=== PATIENT | female | born 1960 | race Caucasian/White ===

== ENCOUNTER 2018-03-28 12:16 | Emergency (ER) | payer OTHER, SELFPAY ==
[2018-03-28 12:25] VITALS: BP 157/77; PULSE 60; RESP 18; TEMP 36.4; O2SAT 100
[2018-03-28 13:05] LABS: Abs Immature Grans 0.01 k/cumm (0.0-0.09); Absolute Basophil Count 0.01 k/cumm (0.0-0.2); Absolute Eosinophil Count 0.07 k/cumm (0.0-0.7); Absolute Lymphocyte Count 0.79 k/cumm (1.2-3.4); Absolute Monocyte Count 0.54 k/cumm (0.11-0.7); Absolute Neutrophil Count 3.97 k/cumm (1.2-6.7); Basophils % 0.2; Eosinophils % 1.3; HCT 34.9 % (36.0-46.0); Immature Grans % 0.2; Lymphocytes % 14.7; Mean Corp. HGB Concentration 31.5 g/dL (32.0-36.0); Mean Corpuscular Hemoglobin 25.5 pg (27.0-33.0); Mean Corpuscular Volume 80.8 fL (80-95); Mean Platelet Volume 10.8 fL (8.0-11.0); Neutrophils % 73.6; Platelet Count 247 x1000/uL (130-400); RBC 4.32 m/cumm (4.00-5.20); RBC Distribution Width 14.1 % (11.7-14.6); White Blood Cell Count 5.39 k/cumm (4.4-10.8)
[2018-03-28 13:20] LABS: ALT 26 U/L (12-78); AST 29 U/L (15-37); Albumin 3.7 g/dL (3.4-5.0); Alkaline Phosphatase 101 U/L (46-116); BUN 14 mg/dL (7-18); Bilirubin, Total 0.3 mg/dL (0.2-1.0); CREATININE 0.74 mg/dL (0.55-1.02); Calcium 8.8 mg/dL (8.5-10.1); Chloride 104 mmol/L (98-107); Glucose 97 mg/dL (70-100); Sodium 141 mmol/L (136-145); Total Protein 7.3 g/dL (6.4-8.2)
--- NOTE | 2018-03-28 13:34 | ED.GENADUL_ITS ---
Disposition Clinical Impression: GI bleeding Disposition: HOME Condition: Improving Instructions: Gastrointestinal Bleeding (ED) Additional Instructions: Please take it easy over the next couple days. Please follow-up with surgery. Call on Saturday. Please follow-up with your primary care physician. Return to the emergency department immediately for any worsening or new concerning symptoms. Referrals: Angela Jo MD [Primary Care Provider] - Ted Ceballos DO [ [facility] STAFF PHYSICIAN] - Medical Decision Making - Lab Data Laboratory Tests 03/28/18 03/28/18 12:35 12:35 WBC 5.39 RBC 4.32 Hgb 11.0 L Hct 34.9 L MCV 80.8 MCH 25.5 L MCHC 31.5 L RDW 14.1 Plt Count 247 MPV 10.8 Immature Gran % 0.2 Neutrophils % 73.6 Lymphocytes % 14.7 Monocytes % 10.0 Eosinophils % 1.3 Basophils % 0.2 Absolute Neutrophils 3.97 Absolute Lymphocytes 0.79 L Absolute Monocytes 0.54 Absolute Eosinophils 0.07 Absolute Basophils 0.01 Sodium 141 Potassium 4.0 Chloride 104 Carbon Dioxide 28.0 Anion Gap 9.0 BUN 14 Creatinine 0.74 Estimated GFR/1.73 m2 >= 60.00 Glucose 97 Calcium 8.8 Magnesium Cancelled Total Bilirubin 0.3 AST 29 ALT 26 Alkaline Phosphatase 101 Troponin I Cancelled Total Protein 7.3 Albumin 3.7 Results reviewed for labs ordered during visit: Yes - Medical Decision Making 13:35 --57-year-old female with history of familial adenomatous polyposis, colon cancer, status post colectomy, gastric ulcer in the past here with rectal bleeding today. Patient notes last bowel movement had decreased blood. Patient otherwise feels well. Vital stable. No active bleeding at this time. I called and spoke with general surgery on-call Dr. Hurtado and reviewed the presentation as well as past medical history including operative report from Dr. Manley 11/01/2017. He recommended ED observation to ensure bleeding improves and the patient remained stable. Should patient not be stable, she will admit for scope. 14:30 -- Patient reassessed and remains stable. Patient had another bowel movement here in emerge department without any bleeding. I discussed treatment plan with patient and she agreed to take it easy over the next couple days, return immediately should she have any worsening or new concerning symptoms and to follow-up with surgery Saturday to schedule EGD/ colonoscopy. History of Present Illness - General Chief complaint: GI Bleed Stated complaint: PASSING BLOOD Time Seen by Provider: 03/28/18 12:25 Source: patient, RN notes reviewed Mode of arrival: ambulatory Limitations: no limitations - History of Present Illness Initial comments: 57 yo female with history of familial adenomatosis polyposis, colon polyps, colon cancer, status post colectomy except for small rectal stump, gastric ulcers in the past, presents with chief complaint of rectal bleeding. Patient notes that since just prior to lunch today she has had intermittent rectal bleeding with bowel movement. Rectal bleeding is bright red, light to moderate. She notes that the toilet water does seem to clear. She has had 3 bouts of this today. No modifiers. No associated abdominal pain. Patient otherwise feels well. - Related Data Estradiol [Estring] 1 each VG q 3 months #1 script 05/15/17 Pantoprazole Sodium 40 mg PO DAILY #30 tabcr 04/01/18 Allergies Allergy/AdvReac Type Severity Reaction Status Date / Time morphine AdvReac Intermediate BAD DREAMS Unverified 03/31/18 15:56 Review of Systems Constitutional: denies: fever Respiratory: denies: cough, shortness of breath Cardiovascular: denies: chest pain Gastrointestinal: as per HPI. denies: abdominal pain, nausea, vomiting Comment: All other systems reviewed and negative Past Medical History - Past Medical History colon cancer Surgical history: other (Colectomy) - Social History Smoking status: never smoker Alcohol use: none Drug use: none General Exam - General Limitations: no limitations General appearance: alert, in no apparent distress - Eye Eye exam: Absent: conjunctival injection - ENT ENT exam: Present: mucous membranes moist - Respiratory Respiratory exam: Present: normal lung sounds bilaterally. Absent: wheezes, rales, rhonchi - Cardiovascular Cardiovascular Exam: Present: regular rate, normal rhythm, normal heart sounds - GI/Abdominal GI/Abdominal exam: Present: soft, normal bowel sounds. Absent: distended, tenderness, guarding, rebound, rigid - Neurological Exam Neurological exam: Present: alert. Absent: altered - Psychiatric Psychiatric exam: Present: normal affect - Skin Skin exam: Present: warm, dry, intact. Absent: pallor Course Vital Signs - 24 hr 03/28/18 12:25 Temperature 36.4 C L Pulse 60 Respiratory 18 Rate Blood Pressure 157/77 Pulse Oximetry 100
[2018-03-28] MEDS: Pantoprazole 40 MG VIAL IVP (13:46)
[2018-03-28 13:49] VITALS: BP 130/68; PULSE 54; RESP 16; TEMP 36.7; O2SAT 100
[2018-03-28 14:55] VITALS: BP 143/77; PULSE 62; RESP 16; TEMP 36.3; O2SAT 99
== END 2018-03-28 16:28 | disposition home or self-care (01) ==
PROVIDERS: Emergency Provider Student in an Organized Health Care Education/Training Program; PCP Family Medicine
DX: K92.2 Gastrointestinal hemorrhage, unspecified (principal)
CPT/HCPCS: 36415; 80053; 86850; 86900; 86901; 96374; 99284; 83735; 84484; 85025

== ENCOUNTER → 2018-04-08 15:38 | Outpatient (CLI) | payer OTHER, SELFPAY ==
[2018-04-08 17:22] LABS: Vitamin B12 485 pg/mL (193-986)
[2018-04-10 11:09] LABS: Iron 96 ug/dL (50-175)
[2018-04-10 11:22] LABS: Ferritin 22 ng/mL (8-388)
== END ==
PROVIDERS: PCP Family Medicine; Visit Provider Surgery
DX: K29.50 Unspecified chronic gastritis without bleeding (principal); R53.82 Chronic fatigue, unspecified; D64.9 Anemia, unspecified
CPT/HCPCS: 36415; 82607; 82728; 83540

== ENCOUNTER 2018-04-25 08:31 | Day surgery (SDC) | payer OTHER, SELFPAY ==
[2018-04-25 09:32] VITALS: BP 137/83; PULSE 71; RESP 18; TEMP 36.6; O2SAT 99
[2018-04-25] MEDS: Lactated Ringers 1,000 ML 30 ML IV (09:59)
[2018-04-25] MEDS: Lactated Ringers 1,000 ML 900 ML IV (11:41)
--- NOTE | 2018-04-25 11:55 | BOWEL_PTH ---
PATIENT: CASTRO HUSSEIN LOC: [facility] U#:[id number] AGE/SX: 57/F ROOM: RE04/25/[address]: Ted Ceballos DO : 1960 BED: DIS: 04/25/2018 SPEC #: [id number] RECD: 04/25/18 13:12 STATUS: [facility] #: [id number] JOHN: 04/25/18 11:[address]: Ted Ceballos DEPT: Surgical Specimen RECD BY: Claudia Grayson ENTERED: 04/25/18 13:13 SP TYPE: Bowel OTHR DR: Angela Jo MD Tissues: 1 - STOMACH BIOPSY 2 - BIOPSY BOWEL 3 - BIOPSY BOWEL Procedures: SPECIAL STAIN 2 GROSS AND MICRO LEVEL 4 IMMUNOPEROXIDASE STAIN Comments: [id number]
[2018-04-25 12:38] VITALS: BP 114/72; PULSE 74; RESP 16; TEMP 35.8; O2SAT 97
[2018-04-25 13:23] VITALS: BP 150/80; PULSE 76; RESP 18; TEMP 36.3; O2SAT 96
--- NOTE | 2018-04-25 13:47 | ROE_ITS ---
DATE OF PROCEDURE: April 25, 2018 PREOPERATIVE DIAGNOSIS: 1. History of H. pylori. 2. Rectal bleeding. POSTOPERATIVE DIAGNOSIS: 1. Personal history of H. pylori. 2. Rectal mass. PROCEDURE: 1. Esophagogastroduodenoscopy with biopsies. 2. Flexible sigmoidoscopy with biopsies by hot snare and cold forceps. SURGEON: Ted Ceballos D.O. ANESTHESIA: Monitored Anesthesia Care by Brandi Srinivasan CRNA. ASA 2, Mallampati Class II. COLON PREP: MiraLAX and Bisacodyl prep. PREP QUALITY: Excellent. ESTIMATED BLOOD LOSS: Minimal. SPECIMENS: 1. Gastric antrum biopsies. 2. Rectal mass. 3. Rectal stump biopsies. INDICATIONS: This is a 57-year-old woman who has a history of familial adenomatous polyposis with ad enocarcinoma of the colon prior and a history of H. pylori presented with bright red blood per rectum two weeks ago. She denied any pain with this. She has been asymptomatic otherwise. Last colonosco py was in November with two polyps being identified. Since then she's been asymptomatic until recent ep isode of bleeding. It was recommended she undergo upper and lower endoscopy, the risks and benefits of which were discussed with her. All her questions were answered to her satisfaction. Consent was obtained to proceed. FINDINGS: In examining the upper gastrointestinal tract from the oropharynx to the third portion of the duodenum, the duodenum and esophagus appeared grossly normal. In the stomach there was some blee ding points that were not actively bleeding, but they had, and some contact friability; multiple biop sies were taken of this and submitted for pathology. In performing the flexible sigmoidoscopy of the rectal stump and anastomosis of the small bowel, a re ctal mass was found, approximately two centimeters in greatest diameter and removed by hot snare biop sy. In examining the rectal stump I did perform multiple cold biopsies, as there appeared to be some abnormal cells in the rectal stump. PROCEDURE: The patient was brought to the preanesthesia staging area, identification confirmed, cons ent signed. She was then brought to the procedure room and positioned left lateral decubitus. Monit oring for telemetry, end-tidal CO2, O2 saturation and blood pressure were applied. An appropriate ti me-out was taken in reviewing the patient's identification, allergies to medications, and procedures. A bite block was placed and sedation was administered by the RICHARD. Once adequate sedation was reached, I advanced an Olympus variable-stiffness endoscope from the oroph arynx to the third portion of the duodenum without difficulty. The scope was then withdrawn in circu mferential manner from the duodenum back to the oropharynx. In so doing, the duodenum appeared gross ly normal, as did the gastric antrum. There were some inflammatory changes in the body of the stomac h, which were biopsied. On retroflection of the scope in the stomach, the lesser and greater curvatu res appeared grossly normal, other than the aforementioned inflammatory changes. The fundus appeared grossly normal. There was no evidence of a hiatal hernia. I withdrew the scope to the GE junction, which I measured at 36 cm. The Z-line was at 36 cm and regular. I withdrew the scope through the r emainder of the esophagus, all of which appeared grossly normal. The scope was then withdrawn, termi nating the procedure. The patient was repositioned for flexible sigmoidoscopy. Sedation was confirmed. I advanced an Olym pus variable-stiffness flexible sigmoidoscope through the anus to the rectal junction to the anastomo sis of the rectum to the small bowel, which was about 20 cm. This appeared grossly normal, but when withdrawing the scope there was noted first to be a small polyp but turned out to be a rather large m ass that was pedunculated. I was able to remove this with a hot snare. Below this was noticed a sma ll opening, which I advanced the scope through and this was a remnant of the rectal stump. Apparentl y the patient had an end-to-side anastomosis and part of the rectal stump was upstream from the anast omosis had strictured. There were some abnormal cells in the stump and biopsies were taken of these and some cells around the orifice to the rectal stump. I then withdrew the scope, terminating the pr ocedure. PLAN: Will get a metastatic workup; I suspect the polyp is malignant and was definitely the source o f bleeding, and will start referrals to Med Oncology and Colorectal Surgery.
== END 2018-04-25 13:51 | disposition home or self-care (01) ==
LOC: SUR 04-26 10:19
PROVIDERS: PCP Family Medicine; Visit Provider Surgery
DX: C20 Malignant neoplasm of rectum (principal); D12.8 Benign neoplasm of rectum; K62.5 Hemorrhage of anus and rectum; K31.9 Disease of stomach and duodenum, unspecified; T45.4X5A Adverse effect of iron and its compounds, initial encounter; Z87.19 Personal history of other diseases of the digestive system; Z85.038 Personal history of other malignant neoplasm of large intestine; Z90.49 Acquired absence of other specified parts of digestive tract; Z98.0 Intestinal bypass and anastomosis status
CPT/HCPCS: 43239; 45380; 45385; 88305; 88313; 88361

== ENCOUNTER → 2018-04-30 01:23 | Outpatient (CLI) | payer OTHER, SELFPAY ==
--- NOTE | 2018-04-30 10:10 | DI.CT_ITS ---
SYMPTOM/DIAGNOSIS: RECTAL MASS WITH H/O COLON CA CHEST, ABDOMEN AND PELVIC CT: Comparison is made with 08/23/16. ABDOMEN AND PELVIS: There is again seen a hypodense mass in the dome of the right lobe of the liver. It measures 1.4 cm. in transverse diameter. There does appear to be some peripheral enhancement of the mass superiorly. This is unchanged in size compared to the CT scan from 08/23/16. This was also present and similar in size on the CT scan from 10/04/11. No new hepatic masses are identified. The portal and superior mesenteric veins are patent. The gallbladder is negative by CT criteria. There is no biliary ductal dilatation. The pancreas and peripancreatic soft tissues are unremarkable. The spleen is unremarkable. The adrenal glands are unremarkable. The kidneys show normal and symmetric enhancement. No evidence of a solid renal mass or obstruction. The urinary bladder is intact. The reproductive organs appear grossly unremarkable. The abdominal aorta is of normal caliber. No aneurysmal dilatation is present. There is a trace amount of fluid in the cul-de-sac. No pneumoperitoneum is present. The majority of the colon appears to have been resected. There is asymmetric soft tissue thickening seen in the region of the rectum just inferior to the suture material. This may be slightly more prominent compared to the examination from 2016. There is again seen a soft tissue mass in the rectum on the right measuring approximately 4 cm. by 2.7 cm. This has a similar appearance compare to the prior examination. No significant abdominal or pelvic adenopathy is present. No suspicious lytic or sclerotic lesions are identified. IMPRESSION: 1. Status post near total colectomy. 2. Soft tissue thickening seen in the region of the rectum near the inferior most anastomotic. This may be post surgical. It appears slightly more prominent compared to the prior examination. Please correlate clinically. 3. Stable 4 cm. soft tissue mass in the right pelvis. 4. Stable 1.4 cm. hepatic lesion, likely reflecting a hemangioma. This has been present on CT scans dating back to 2006. 5. No new hepatic mass. No adrenal mass is identified. CHEST: There are bilateral thyroid nodules, the largest is in the right lobe and measures 0.9 cm. in diameter. Follow up as clinically appropriate. No significant axillary, mediastinal or hilar adenopathy is present. The thoracic aorta is of normal caliber. Heart size is at the upper limits of normal. No significant pericardial effusion is seen. No pleural effusion or pneumothorax is identified. The tracheobronchial tree is unremarkable. There are a few tiny subpleural areas of nodularity present. This may represent scarring. There is a small reticular nodular infiltrate in the left lower lobe. No consolidating infiltrates are present. No definite non calcified pulmonary nodules are appreciated. IMPRESSION: 1. No definite evidence of thoracic metastatic disease. 2. Reticular nodular infiltrate in the left lower lobe. This finding is nonspecific. This may represent an inflammatory or infectious process. Follow up is recommended. 3. Pleural scarring in the lungs
[2018-04-30] MEDS: Omnipaque 350 MG/ML 100 ML BTL IJ (14:26)
== END ==
PROVIDERS: PCP Family Medicine; Visit Provider Surgery
DX: K62.89 Other specified diseases of anus and rectum (principal); R16.0 Hepatomegaly, not elsewhere classified; Z85.038 Personal history of other malignant neoplasm of large intestine; Z90.49 Acquired absence of other specified parts of digestive tract; E04.1 Nontoxic single thyroid nodule; J98.4 Other disorders of lung
CPT/HCPCS: 74177; 71260; J3490

== ENCOUNTER 2018-09-05 16:01 | Outpatient (REF) | payer OTHER, SELFPAY ==
--- NOTE | 2018-09-05 15:45 | PAPFT_PTH ---
PATIENT: CASTRO HUSSEIN LOC: [facility] U#:[id number] AGE/SX: 58/F ROOM: RE09/05/[address]: MOSHE [place] : 1960 BED: DIS: 09/05/2018 SPEC #: [id number] RECD: 09/05/18 17:47 STATUS: RYAN [facility] #: [id number] JOHN: 09/05/18 15:[address]: Vivian Barajas DEPT: [facility] Cytology RECD BY: Claudia Grayson ENTERED: 09/05/18 17:48 SP TYPE: PAPFT JASPREET DR: Angela Jo MD Tissues: 1 - CX/ENDOCX FOR PAP SMEARS Procedures: PAP THIN PREP/[facility] Screening HPV DNA PROBE Comments: [id number]
== END 2018-09-05 16:21 ==
LOC: LBN 16:01
PROVIDERS: PCP Family Medicine; Visit Provider Nurse Practitioner Family
DX: Z12.4 Encounter for screening for malignant neoplasm of cervix (principal); Z11.51 Encounter for screening for human papillomavirus (HPV)
CPT/HCPCS: 88142; 87624

== ENCOUNTER 2018-09-16 06:36 | Outpatient (CLI) | payer OTHER, SELFPAY ==
[2018-09-16 08:39] LABS: Glucose 97 mg/dL (70-100)
[2018-09-16 08:44] LABS: Iron 55 ug/dL (50-175)
[2018-09-16 08:57] LABS: Cholesterol 177 mg/dL (50-200); Ferritin 37 ng/mL (8-388); HDL Cholesterol 98 mg/dL (40-60); LDL CHOLESTEROL 74 mg/dL (<100); Triglyceride 47 mg/dL (30-150)
== END 2018-09-16 06:56 ==
PROVIDERS: PCP Family Medicine; Visit Provider Nurse Practitioner Family
DX: D64.9 Anemia, unspecified (principal); Z13.220 Encounter for screening for lipoid disorders; Z13.1 Encounter for screening for diabetes mellitus
CPT/HCPCS: 36415; 80061; 82947; 83721; 82728; 83540

== ENCOUNTER 2018-10-23 00:58 | Outpatient (CLI) | payer OTHER, SELFPAY ==
--- NOTE | 2018-10-23 08:45 | DI.MAMMO_ITS ---
SYMPTOMS/DIAGNOSIS: SCREENING, Z12.31 BILATERAL SCREENING MAMMOGRAM: Mammograms were interpreted according to the usual protocol including computer analysis with CAD system, tomosynthesis and C view imaging. Comparison is made with 2013 through 2017. The breasts are composed of scattered fibroglandular densities, breast density category B. No suspicious masses or suspicious microcalcifications are seen. There has been no significant change. IMPRESSION: Category 1, negative mammogram. Yearly screening mammography is recommended. [facility] ASSESSMENT OF FINDINGS: Negative. Category 1. Patient will receive a letter notifying them of these results. BI-RADS category B. There are scattered areas of fibroglandular density.
== END 2018-10-23 01:18 ==
PROVIDERS: PCP Family Medicine; Visit Provider Nurse Practitioner Family
DX: Z12.31 Encounter for screening mammogram for malignant neoplasm of breast (principal)
CPT/HCPCS: 77063; 77067

== ENCOUNTER 2018-12-31 09:38 | Outpatient (CLI) | payer OTHER, SELFPAY ==
[2018-12-31 10:13] LABS: HCT 39.7 % (36.0-46.0); HGB 13.2 g/dL (12.0-15.5); Mean Corp. HGB Concentration 33.2 g/dL (32.0-36.0); Mean Corpuscular Hemoglobin 27.8 pg (27.0-33.0); Mean Corpuscular Volume 83.8 fL (80-95); Mean Platelet Volume 10.5 fL (8.0-11.0); Platelet Count 258 x1000/uL (130-400); RBC 4.74 m/cumm (4.00-5.20); RBC Distribution Width 13.5 % (11.7-14.6); White Blood Cell Count 5.19 k/cumm (4.4-10.8)
[2018-12-31 11:14] LABS: BUN 16 mg/dL (7-18); CREATININE 0.74 mg/dL (0.55-1.02); Calcium 9.4 mg/dL (8.5-10.1); Chloride 103 mmol/L (98-107); Ferritin 36 ng/mL (8-388); Glucose 92 mg/dL (70-100); Potassium 3.6 mmol/L (3.5-5.1); Sodium 143 mmol/L (136-145); TSH (W/Ref FT4) 0.82 uIU/mL (0.358-3.74); Vitamin B12 621 pg/mL (193-986)
[2018-12-31 15:10] LABS: Iron 82 ug/dL (50-175); Total Iron Binding Capacity 409 ug/dL (250-450); Transferrin Sat 20 % (15-50)
== END 2018-12-31 09:58 ==
PROVIDERS: PCP Family Medicine; Visit Provider Family Medicine
DX: Z00.00 Encounter for general adult medical examination without abnormal findings
CPT/HCPCS: 36415; 80048; 85027; 82607; 82728; 83540; 83550; 84443

== ENCOUNTER 2019-02-05 10:09 | Outpatient (CLI) | payer OTHER, SELFPAY ==
--- NOTE | 2019-02-05 08:30 | DI.RAD_ITS ---
SYMPTOM/DIAGNOSIS: RETICULAR NODULAR INFILTRATE IN LEFT LOWER LOBE/ F/U ABNL CHEST X-RAY R93.89 PA AND LATERAL CHEST: The heart is normal in size. The lungs are clear. The mediastinal structures and pleura appear intact. CONCLUSION: Normal chest.
== END 2019-02-05 10:29 ==
PROVIDERS: PCP Family Medicine; Visit Provider Family Medicine
DX: R91.8 Other nonspecific abnormal finding of lung field (principal)
CPT/HCPCS: 71046

== ENCOUNTER 2019-05-08 07:21 | Emergency (ER) | payer OTHER, SELFPAY ==
[2019-05-08 07:26] VITALS: BP 152/80; PULSE 68; RESP 18; O2SAT 78
[2019-05-08] MEDS: Ketorolac 30 MG/ML VIAL IM (07:36)
--- NOTE | 2019-05-08 07:55 | ED.GENADUL_ITS ---
Discharge Plan Disposition Patient Disposition: HOME Condition: Good Discharge Details Chief Complaint: Orthopedic Clinical Impression: Left ulnar fracture, Closed left radial fracture, Fracture of metacarpal Primary Care Provider: Angela Jo ED Provider: Andres Rayo Home Meds and New Rx's Prescriptions: No Action Estring 2 mg (7.5 mcg /24 hour) ring 1 vag ring VG q 3 months Qty: 1 RF: 4 hydrochlorothiazide 25 mg tablet 25 mg PO DAILY Qty: 90 RF: 3 ferrous sulfate 325 mg (65 mg iron) tablet 325 mg PO DAILY RF: 0 Discharge Instructions Instructions: Wrist Fracture in Adults (ED) Additional Instructions: You have a fracture in your wrist. Please keep the splint on at all times. Please take Tylenol and Motrin as needed for pain. Maximum dose is 1000 mg of Tylenol every 6 hours and 800 mg of ibuprofen every 6 hours. Please use ice often. Orthopedics will contact you for follow-up day. If you notice any worsening of your symptoms, or any new symptoms such as vomiting, diarrhea, fever, chills, shortness of breath, chest pain, numbness, weakness, or fainting , please return immediately to the emergency department for reevaluation. Please follow up with your primary care provider as soon as possible for reassessment and reevaluation. As always, it was a pleasure participating in your medical care today. Referrals: Angela Jo MD [Primary Care Provider] - Discharge Data Discharge Date/Time-TO BE ENTERED AT DEPARTURE: 05/08/19 08:25 Medical Decision Making <Jose L Thacker DO - Last Filed: 05/08/19 20:14> This is a 58-year-old female who presents today for evaluation of left wrist pain in her nondominant wrist. Less than an hour ago she fell, hyperflexing her wrist. Pain is located at the distal radius and ulna as well as diffuse pain throughout the proximal metacarpals. Sensation, two-point discrimination, appears intact, capillary refill and vascular exam is normal. Heel Painter strength and movement of all fingers and thumb is normal and shows no evidence of significant deficit. Movement is slightly limited secondary to pain. No evidence of notable displacement or deformity. Differential is highest for nondisplaced fracture of the radius, ulna, or proximal carpals/metacarpals. Patient will be given Toradol for pain, we will order a universal wrist splint at this time, we will get x-rays. Case will be signed out to my colleague Dr. Andres Mendoza for final results of imaging. We will schedule orthopedic follow-up. Also of note the patient demonstrate no evidence of trauma to the remainder of her body, she denies hitting her head or having any loss of consciousness. No pain in any of the other extremities or components of the extremities. FINDINGS: Bones/joints: There is an impacted transverse fracture of the distal radial metaphysis. There is an associated longitudinal fracture line extending to the radiocarpal joint. There is a fracture at the base of the ulnar styloid. There is an oblique fracture involving the proximal fourth metacarpal. No dislocation. Soft tissues: There is superficial soft tissue swelling. There is a positive pronator quadratus sign. IMPRESSION: Distal radial, ulnar styloid, and proximal fourth metacarpal fractures. Dictated and Authenticated by: Dalton Cerna MD. <Andres Rayo MD - Last Filed: 05/08/19 08:07> xray confirms fractur ewithout displacement. Placed in universal wrist splint with intact csmt's, will d/c home and f/u with ortho HPI <Jose L Thacker DO - Last Filed: 05/08/19 20:14> General Date/Time Provider Initiated Documentation: 05/08/19 07:22 . HPI Narrative: This is a pleasant 58-year-old female who presents today for evaluation of left wrist pain. She is right-hand dominant. Less than an hour ago she was walking when she fell on some stairs, and hyperflexed her left wrist. She developed immediate pain came to the ER for further evaluation. Pain is present in the distal forearm. Worse with movement. She denies any numbness tingling or weakness. She has not taken any medications for pain. She denies hitting her head, loss of consciousness, or any other trauma. She has no other complaints at this time. Past medical history is positive for chronic gastritis, H. pylori, colon cancer. Related Data Home Medications Medication Instructions Recorded Confirmed estradiol 1 vag ring VG q 3 months #1 each 09/05/18 05/08/19 hydrochlorothiazide 25 mg tablet 25 mg PO DAILY #90 tab 02/04/19 05/08/19 ferrous sulfate 325 mg PO DAILY 05/08/19 05/08/19 Previous Rx's Medication Instructions Recorded estradiol 1 vag ring VG q 3 months #1 each 09/05/18 hydrochlorothiazide 25 mg tablet 25 mg PO DAILY #90 tab 02/04/19 Allergies Allergy/AdvReac Type Severity Reaction Status Date / Time morphine AdvReac Intermediate BAD DREAMS Verified 05/08/19 07:37 General Stated Complaint: Orthopedic GIULIANA: 3 Review of Systems <Jos eL Thacker DO - Last Filed: 05/08/19 20:14> Review of Systems ROS Unobtainable: All systems reviewed & are unremarkable except as noted in HPI and below PFSH <Jose L Thacker DO - Last Filed: 05/08/19 20:14> Medical History (Updated 01/30/19 @ 09:33 by Daniel Real) Chronic gastritis (Acute 11/01/17) Essential (primary) hypertension (Acute) FAP (familial adenomatous polyposis) (Chronic) History of Helicobacter pylori infection (Chronic) 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 Rectal adenocarcinoma (Acute 04/25/18) Dr Ceballos Tubular adenoma (Acute) 11/23/15-DR. DALE 12/12/16-DR. DALE 11/01/16, tubular adenoma of rectal stump and anal verge, Dr Ted Ceballos tubular adenoma of rectal stump tubular adenoma anal verge Surgical History (Updated 01/30/19 @ 09:33 by Daniel Real) Abnormal colonoscopy (Inactive 04/25/18) Dr Ceballos, flex sigmoidoscopy Anoscopy (07/09/17) Colectomy (~1993) LARGE BOWEL reanastomosis colonoscopy (12/12/16) Colonoscopy - MAC (11/01/17) EGD - MAC (11/01/17) EGD - MAC (04/25/18) EXCISION SEBACEOUS CYST (04/11/15) LEFT POSTAURICULAR REGION History of esophagogastroduodenoscopy (EGD) (Chronic 04/25/18) Dr Ceballos Sigmoidoscopy (04/25/18) surveillance of rectal stump (12/12/16) Social History (Updated 12/31/18 @ 11:51 by Kerwin Morrison) Smoking/Tobacco Use Status: Never Alcohol Intake: current Alcohol Intake frequency: holidays/special occasions only Alcohol type: wine Drug use: Never Substance use type: does not use Household members: spouse Housing: house Communication Needs: None Do you need help understanding health information?: Rarely Pets and animals: Yes Pets and animals: cat(s) Do you think of yourself as: straight/heterosexual Current gender identity: female What is your relationship status?: How often do you talk on the phone with friends or family?: decline to answer How often do you get together with friends or relatives?: twice per week How often do you attend jewish or scientologist services?: 1-3 times per year Do you belong to any clubs or organized social groups?: decline to answer Panel score (0-1 are the most socially isolated patients): 1 What type of physical activity do you participate in: walking Duration: 15-30 minutes/day Frequency: 5-6 times per week Destini/Roman Catholic: Buddhism Special destini needs: No Seatbelt use: always Helmet use: No Drive intox or ride w/intox straddle truck driver: No Do you feel safe in your relationship?: Yes History History 2 Para 2 Hx # Term Pregnancies Multiple births Hx # Pregnancies Ectopic pregnancies AB induced Hx Number of Living Children AB spontaneous Exam <Jose L Thacker DO - Last Filed: 05/08/19 20:14> Narrative Exam Narrative: 1.Const: Well-nourished, Well-developed, appearing stated age 2.Eyes: PERRL, no conjunctival injection, and symmetrical lids. 3.ENT: Atraumatic external nose and ears. Moist MM. Neck: Symmetric, trachea midline, No thyromegaly. 4.CVS: +S1/S2, No murmurs or gallops. Peripheral pulses 2+ and equal in all extremities. Brisk capillary refill in all extremities. 5.RESP: Unlabored respiratory effort. Clear to auscultation bilaterally. No wheezes rales or rhonchi 6.GI: Soft, Nontender/Nondistended, No hepatosplenomegaly. No guarding or rebound. 7.MSK: Normocephalic, Extremities w/o deformity.No cyanosis or clubbing, Left wrist: Left wrist demonstrates notable tenderness at the distal aspect of the radius and ulna. There is also diffuse tenderness over the proximal metacarpals. Pain is made worse with flexion and extension, as well as varus and valgus stressing. Patient demonstrates good information broker strength, normal movement of the fingers. Symmetrically palpable radial and ulnar pulses. Capillary refill less than 2 seconds to all digits. Intact sensation to light touch of the radial, median and ulnar nerves demonstrated by testing in the dorsal web space of the thumb, the distal palmar aspect of the index finger, and the lateral surface of the fifth finger. 2 point discrimination intact to 5mm (up to 6mm can be normal in digits 3-5) of discrimination in the affected digits. Intact motor function of the radial, median and ulnar nerves demonstrated by strength of extension of the isolated distal joint of the index finger, hand information broker, and spreading of the 2nd through 5th digits. Intact recurrent median nerve as demonstrated by ability to move thumb fully through opposition, abduction and flexion. Minimal snuffbox tenderness. 8.Skin: Warm, Dry. No rashes or lesions. 9.Neuro: home health care coordinator II-XII grossly intact. Sensation grossly intact, no focal neurologic deficits. 10.Psych: (AAO) x3. Appropriate mood and affect Course <Jose L Thacker DO - Last Filed: 05/08/19 20:14> Vital Signs Vital signs: Vital Signs Pulse 68 05/08/19 07:26 Respiratory Rate 18 05/08/19 07:26 Blood Pressure 152/80 H 05/08/19 07:26 Pulse Oximetry 78 L 05/08/19 07:26 Temperature Source Temporal Artery Scan 05/08/19 07:26 Pulse 68 05/08/19 07:26 Respiratory Rate 18 05/08/19 07:26 Blood Pressure 152/80 H 05/08/19 07:26 Blood Pressure Position Supine 05/08/19 07:26 Pulse Oximetry 78 L 05/08/19 07:26 Oxygen Delivery Method Room Air 05/08/19 07:26 Oxygen Flow Rate 0 05/08/19 07:26 Pain Level 8 05/08/19 07:26 Sign Out <Jose L Thacker DO - Last Filed: 05/08/19 20:14> Sign Out Data: Sign Out Comment: Female fell on hyperflexed left nondominant wrist, concern for distal forearm fracture. Pending x-ray evaluation and final disposition. Last updated by Jose L Thacker DO at 05/08/19 07:57
--- NOTE | 2019-05-08 07:57 | DI.RAD_ITS ---
SYMPTOM/DIAGNOSIS: FALL, DISTAL FOREARM PAIN R/O FX LEFT WRIST: There is a fracture extending transversely through the distal radial metaphysis. There is some impaction as well as comminution with extension to the articular surface. The ulnar styloid is fractured but not significantly displaced. The carpal bones are unremarkable. There is also an oblique fracture extending through the base of the 4th metacarpal. IMPRESSION: Comminuted intra articular fracture of the distal radius. Ulnar styloid fracture. Fracture of the base of the 4th metacarpal.
--- NOTE | 2019-05-08 08:47 | DI.VRAD_ITS ---
EXAM: XR Left Wrist EXAM DATE/TIME: 05/08/2019 7:28 AM CLINICAL HISTORY: 58 years old, female; Injury or trauma; Initial encounter; Sprain or strain; Wrist; Left; Patient HX: S/P fall, distal forarm pain, R/O FX. TECHNIQUE: Imaging protocol: XR Left wrist. Views: 3 or more views. COMPARISON: No relevant prior studies available. FINDINGS: Bones/joints: There is an impacted transverse fracture of the distal radial metaphysis. There is an associated longitudinal fracture line extending to the radiocarpal joint. There is a fracture at the base of the ulnar styloid. There is an oblique fracture involving the proximal fourth metacarpal. No dislocation. Soft tissues: There is superficial soft tissue swelling. There is a positive pronator quadratus sign. IMPRESSION: Distal radial, ulnar styloid, and proximal fourth metacarpal fractures. Dictated and Authenticated by: Dalton Cerna MD. Ordering:ALISIA Domingo MD
== END 2019-05-08 08:25 | disposition home or self-care (01) ==
PROVIDERS: Emergency Provider Emergency Medicine; PCP Family Medicine
DX: S52.615A Nondisplaced fracture of left ulna styloid process, initial encounter for closed fracture (principal); S52.502A Unspecified fracture of the lower end of left radius, initial encounter for closed fracture; S62.345A Nondisplaced fracture of base of fourth metacarpal bone, left hand, initial encounter for closed fracture; W10.8XXA Fall (on) (from) other stairs and steps, initial encounter; I10 Essential (primary) hypertension
CPT/HCPCS: 25600; 26600; 96372; 73110; J1885; L3908

== ENCOUNTER 2019-05-19 12:47 | Outpatient (CLI) | payer OTHER, SELFPAY ==
--- NOTE | 2019-05-19 11:00 | DI.RAD_ITS ---
EXAM: XR WRIST LT LIMITED INDICATION: FRACTURE. COMPARISON: XR WRIST LT COMPLETE from 05/08/2019 TECHNIQUE: 2D digital imaging was performed. FINDINGS: When compared with the previous examination, there has been no interval change in the alignment of th e fractures involving the distal radius and ulna. The fracture of the proximal metaphysis of the 4th metacarpal is stable.
== END 2019-05-19 13:07 ==
PROVIDERS: PCP Family Medicine; Visit Provider Student in an Organized Health Care Education/Training Program
DX: S52.512D Displaced fracture of left radial styloid process, subsequent encounter for closed fracture with routine healing; S52.612D Displaced fracture of left ulna styloid process, subsequent encounter for closed fracture with routine healing; S62.345D Nondisplaced fracture of base of fourth metacarpal bone, left hand, subsequent encounter for fracture with routine healing
CPT/HCPCS: 73100

== ENCOUNTER 2019-06-01 08:00 | Day surgery (SDC) | payer OTHER, SELFPAY ==
--- NOTE | 2019-06-01 06:47 | W.COLOREPORT ---
Date of service: 06/01/19 Time of Service: 09:34 Colonoscopy Report Date of procedure: 06/01/19 Pre-op diagnosis general: Hx of FAP, need for rectal stump surveillance, hx of malignant rectal polyp Post-op diagnosis procedure note: other (Polypoid mucosa with ulceration, Friable tissue) Procedure: Flexible sigmoidoscopy with biopsies Surgeon: Marlene Herman Anesthesia proc note operative: other (General/ ASA 2/diane Contreras, RICHARD) Estimated blood loss (mL): 5 Pathology: other (Rectal stump biopsies) Complications: None Disposition: other (General /ASA /) Indications: Jillian is a pleasant 59 year old with a history of FAP and Cancer, S/P Total Colectomy with ileostomy. She requires surveillance of her rectal stump. Risks, benefits and complications have been reviewed. Complications include but are not limited to bleeding, pain, perforation, missed small lesion/polyp, sore throat, aspiration and adverse reaction to the medications. Questions were entertained and answered to their satisfaction and they wished to proceed. No guarantees were given or implied. Findings: 1. Rectal pouch- no polyps or polypoid tissue noted 2. Rectal stump with carpet like polyp circumferentialy Procedure Description: After informed consent was obtained the patient was taken to the procedure room and placed in a left decubitous position. Monitors were applied and a time out was done. The patients name, date of , procedure, allergies to medications and metal in their body was reviewed. The patient was then sedated. Once sedated and comfortable a rectal exam was done. External exam was normal. Internal exam revealed a normal sphincter tone and no palpable masses. The scope was then introduced and retro-flexed. No internal hemorrhoids were identified. There was a carpet like polyp almost circumferentially as well as 2 areas with ulceration. The 2 areas of ulceration were biopsied. Other biopsies were done circumferentially. The tissue was also very friable circumferentially as well. The scope was advanced into the small bowel which was normal. The scope was then retracted and advanced into the pouch. There was some stool within the pouch and this was cleared with irrigation. The pouch was carefully inspected. No polyps or ulcerations were identified. The scope was removed and the patient was woken up and taken back to Same day surgery in stable condition. The patient tolerated the procedure well and there were no immediate complications. Follow up: follow up will depend on results of the biopsies taken.
--- NOTE | 2019-06-01 06:50 | W.PM.DSUDISC ---
Discharge Plan Disposition Patient Disposition: HOME Condition: Good Discharge Details Reason For Visit: Flexible sigmoidoscopy Attending Provider: Marlene Herman Primary Care Provider: David Isabel Home Meds and New Rx's Prescriptions: Continued Estring 2 mg (7.5 mcg /24 hour) ring 1 vag ring VG q 3 months Qty: 1 RF: 4 hydrochlorothiazide 25 mg tablet 25 mg PO DAILY Qty: 90 RF: 3 ferrous sulfate 325 mg (65 mg iron) tablet 325 mg PO DAILY RF: 0 Sean-Citrate 250-100 mg-unit Tablet 600 tab PO RF: 0 Vit C(ascorb.calcium)(mv-mins) 1,000 mg Powder Effervescent In Packet PO RF: 0 vit D3-folic [id number] 2,000-800-0.32 unit-mcg-mg Tablet 1 tab PO DAILY RF: 0 Discharge Instructions Instructions: Flexible Sigmoidoscopy (DC) Additional Instructions: Findings: ulcerations and polypoid tissue around the rectal stump Rectal pouch normal Follow up: ? depends on final pathology Please call if you develop: fevers >101.5 Nausea or Vomiting Abdominal pain that is not transient DAY SURGERY UNIT POST ENDOSCOPY INSTRUCTIONS 1. Because there will be medication in your system for the next 24 hours, you may feel a little sleepy. Your coordination will be affected. Therefore: a. Do not drive or operate dangerous equipment for 24 hours. b. Do not drink alcohol beverages for 24 hours (not even beer). c. Plan to go home and rest for the day. 2. Generally there are no restrictions on your activity after a day or so has gone by, but you may feel a bit fatigued for a few days. 3 After you arrive home you may have a light meal and return to a normal diet as you can tolerate it without feeling sick to your stomach. 4. After surgery, you may feel pain or discomfort. This should be only transient, but if it persists please contact your doctor. 5. If there are any questions regarding the findings of your procedure, please feel free to contact your doctor. 6. If you are unable to contact your doctor with a problem, contact the hospital at [phone]. 7. Continue all your regular medications unless directed otherwise. I understand the above instructions and have no questions. Signature of Patient or Responsible Adult Escort Date/Time Name of Responsible Adult Escort Signature of Nurse Date/Time Activity:: Activity as Tolerated Diet:: As Tolerated Discharge Orders Discharge Orders: Discharge Order (Routine); Ordered 06/01/19 Ordered By: Marlene Herman DS: Diagnosis Discharge Diagnosis (1) FAP (familial adenomatous polyposis): Status: Chronic (2) Sigmoidoscopy: Status: None
[2019-06-01 08:21] VITALS: BP 145/86; PULSE 63; RESP 16; TEMP 35.9; O2SAT 99
[2019-06-01 08:30] VITALS: BP 145/86; PULSE 63; RESP 16; TEMP 35.9; O2SAT 99
[2019-06-01] MEDS: Lactated Ringers 1,000 ML 80 ML IV (08:45)
--- NOTE | 2019-06-01 09:16 | BOWEL_PTH ---
PATIENT: CASTRO HUSSEIN LOC: [facility] U#:[id number] AGE/SX: 59/F ROOM: RE06/01/[address]: Marlene Herman MD : 1960 BED: DIS: 06/01/2019 SPEC #: [id number] RECD: 06/01/19 12:42 STATUS: RYAN REQ #: [id number] JOHN: 06/01/19 09:[address]: Marlene Herman DEPT: Surgical Specimen RECD BY: lCaudia Grayson ENTERED: 06/01/19 12:43 SP TYPE: Bowel OTHR DR: David Isabel MD Tissues: 1 - BIOPSY BOWEL Procedures: GROSS AND MICRO LEVEL 4 Comments: [id number]
[2019-06-01 09:54] VITALS: BP 132/84; PULSE 68; RESP 18; TEMP 36.8; O2SAT 94
== END 2019-06-01 11:43 | disposition home or self-care (01) ==
LOC: SUR 08:01
PROVIDERS: PCP Family Medicine; Visit Provider Surgery
PROC: 0DJD8ZZ Inspection of Lower Intestinal Tract, Via Natural or Artificial Opening Endoscopic (ICD-10-PCS; CPT 45330; principal; 2019-06-01 09:15)
DX: Z12.12 Encounter for screening for malignant neoplasm of rectum (principal); Z83.71 Family history of colonic polyps; Z85.048 Personal history of other malignant neoplasm of rectum, rectosigmoid junction, and anus; D12.8 Benign neoplasm of rectum; K62.6 Ulcer of anus and rectum; Z90.49 Acquired absence of other specified parts of digestive tract; Z93.2 Ileostomy status; I10 Essential (primary) hypertension
CPT/HCPCS: 45331; 88305

== ENCOUNTER 2019-06-09 07:12 | Outpatient (CLI) | payer OTHER, SELFPAY ==
--- NOTE | 2019-06-09 10:51 | DI.RAD_ITS ---
EXAM: XR WRIST LT LIMITED CLINICAL HISTORY: F/U FRACTURE TECHNIQUE: COMPARISON: XR WRIST LT LIMITED from 05/19/2019 FINDINGS: Two views were obtained and show previous disease described fractures of radius ulnar styloid and 4th metacarpal base with no change in alignment in comparison with previous examination of April h. IMPRESSION:
== END 2019-06-09 07:32 ==
PROVIDERS: PCP Family Medicine; Visit Provider Student in an Organized Health Care Education/Training Program
DX: S52.512D Displaced fracture of left radial styloid process, subsequent encounter for closed fracture with routine healing (principal); S52.612D Displaced fracture of left ulna styloid process, subsequent encounter for closed fracture with routine healing; S62.345D Nondisplaced fracture of base of fourth metacarpal bone, left hand, subsequent encounter for fracture with routine healing
CPT/HCPCS: 73100

== ENCOUNTER 2019-07-07 13:25 | Outpatient (CLI) | payer OTHER, SELFPAY ==
--- NOTE | 2019-07-07 13:16 | DI.RAD_ITS ---
EXAM: XR WRIST LT LIMITED INDICATION: F/U FRACTURE. COMPARISON: XR WRIST LT LIMITED from 06/09/2019 TECHNIQUE: 2D digital imaging was performed. FINDINGS: There has been no change in alignment of the fractures involving the distal left radius and ulna and the base of the 4th metacarpal. All other fracture lines appear less well visualized, consistent wit h some interval healing.
== END 2019-07-07 13:45 ==
PROVIDERS: PCP Family Medicine; Visit Provider Student in an Organized Health Care Education/Training Program
DX: S52.512D Displaced fracture of left radial styloid process, subsequent encounter for closed fracture with routine healing (principal); S52.612D Displaced fracture of left ulna styloid process, subsequent encounter for closed fracture with routine healing
CPT/HCPCS: 73100

== ENCOUNTER 2019-09-11 02:33 | Outpatient (RCR) | payer OTHER, SELFPAY ==
[2019-08-28] MEDS: Normal Saline Flush 10 ML SYR IVP (13:54)
[2019-09-04] MEDS: Normal Saline Flush 10 ML SYR IVP (14:15)
== END 2019-09-25 23:59 | disposition home or self-care (01) ==
LOC: INF 02:33
PROVIDERS: PCP Family Medicine; Visit Provider Family Medicine
DX: Z45.2 Encounter for adjustment and management of vascular access device (principal)

== ENCOUNTER 2019-09-20 02:07 | Inpatient (IN) | payer OTHER, SELFPAY ==
[2019-09-20] VITALS (7 sets, daily range): BP systolic 105–148; BP diastolic 61–78; PULSE 68–94; RESP 17–20; TEMP 36.8–37.5; O2SAT 95–99
[2019-09-20 02:30] LABS: Abs Immature Grans 0.09 k/cumm (0.0-0.09); Absolute Basophil Count 0.02 k/cumm (0.0-0.2); Absolute Eosinophil Count 0.04 k/cumm (0.0-0.7); Absolute Neutrophil Count 19.29 k/cumm (1.2-6.7); Basophils % 0.1; Eosinophils % 0.2; HCT 36.7 % (36.0-46.0); HGB 11.9 g/dL (12.0-15.5); Immature Grans % 0.4 %; Lymphocytes % 5.1; Mean Corp. HGB Concentration 32.4 g/dL (32.0-36.0); Mean Corpuscular Hemoglobin 26.9 pg (27.0-33.0); Mean Corpuscular Volume 82.8 fL (80-95); Mean Platelet Volume 9.3 fL (8.0-11.0); Monocytes % 4.4; Neutrophils % 89.8; RBC 4.43 m/cumm (4.00-5.20); RBC Distribution Width 13.4 % (11.7-14.6); White Blood Cell Count 21.48 k/cumm (4.4-10.8)
[2019-09-20] MEDS: diazePAM 10 MG/2 ML SYR 5 MG IVP ×3 (02:30→05:08)
[2019-09-20] MEDS: Ondansetron 4 MG/2 ML VIAL IVP ×2 (02:31→04:17)
[2019-09-20] MEDS: Normal Saline Flush 10 ML SYR IVP (02:31)
[2019-09-20 02:39] LABS: Absolute Monocyte Count 0.95 k/cumm (0.11-0.7)
--- NOTE | 2019-09-20 02:41 | W.ED.GENAD ---
Discharge Plan Disposition Patient Disposition: [facility] INPATIENT Condition: Stable Discharge Details Chief Complaint: Abd Prob Clinical Impression: Small bowel obstruction Primary Care Provider: David Isabel ED Provider: Andres Rayo Home Meds and New Rx's Prescriptions: No Action hydrochlorothiazide 25 mg tablet 25 mg PO DAILY Qty: 90 RF: 3 Sean-Citrate 250-100 mg-unit Tablet 600 tab PO DAILY RF: 0 vit D3-folic [id number] 2,000-800-0.32 unit-mcg-mg Tablet 1 tab PO DAILY RF: 0 Medical Decision Making 59 yo female who in July of 2019 had bowel resection and creation of ostomy for colon cancer comes in with acute onset a few hours ago of abdominal pain and n/v. Her ostomy does still have stool in it, her abdomen does have mild distention and has pain in mid abdomen on the right. Suspect she has sbo, will obtain lab work and ct imagign to eval further. Pt requesting valium as this has helped in similar episodes in the past. Shortly after labs were drawn her pain significantly reduced and she had significant output of stool. She is declining to have a CT at this time given her improved symptoms, will follow up on lab work and reassess. She has capacity to make her own decisions and understands risks of missing other alternative diagnosis such as pneumoperitoneum but still declined CT at this time. pt's labs showelevated wbc, plt and lactate which could be from the vomit and dehydration but feel she should have CT to eval for abscess vs colitis. Pt now willing to have CT so will go ahead with imaging CT shows small bowel obstruction, still no vomit here but pain is returning . Will discuss with her surgical team at [facility] spoke with Dr. Thakkar her surgeon who did not feel she required transfer and could be managed here and recommended NG tube. Will discuss with our general surgeon here about admission spoke with Dr. Fink and since patient has not had vomit in over 2 hours will hold on NG tube, if vomit recurs will place one, she accepts for admission Differential Diagnosis Differential Diagnosis: sbo, pancreatitis, hepatitis Medical Records Medical records reviewed: Yes I reviewed the patient's medical records. Imaging Data Radiologic Study: Attestation: I personally reviewed and interpreted this imaging study as follows: Imaging: CT Scan Radiologist's impression: IMPRESSION: 1. Small bowel obstruction. 2. New, mild left hydronephrosis and hydroureter. 3. Interval increase in size of probably benign lesion in right lobe of liver. Lab Data Lab results reviewed: Yes I reviewed the patient's lab results. HPI General Mode of arrival: ambulatory. Date/Time Provider Initiated Documentation: 09/20/19 02:09. Limitations to Documentation: no limitations. Information obtained by: patient. History of Present Illness 59 year old F presents to the emergency department with the chief complaint of abdominal pain, described as moderate, Quality is described as stabbing and aching, and is localized to the abdomen. Patient reports no radiation. Patient started experiencing this hour(s) (6) and it has been constant. No relieving factors improve symptom(s), No exacerbating factors reported . Patient notes nausea/vomiting. Patient did receive the following treatments prior to arrival, none Related Data Home Medications Medication Instructions Recorded Confirmed hydrochlorothiazide 25 mg tablet 25 mg PO DAILY #90 tab 02/04/19 07/07/19 Sean-Citrate 600 tab PO DAILY 06/01/19 09/20/19 vit D3-folic [id number] 1 tab PO DAILY 06/01/19 09/20/19 Previous Rx's Medication Instructions Recorded hydrochlorothiazide 25 mg tablet 25 mg PO DAILY #90 tab 02/04/19 Allergies Allergy/AdvReac Type Severity Reaction Status Date / Time morphine AdvReac Intermediate BAD DREAMS Verified 09/20/19 02:13 General Stated Complaint: Abd Prob GIULIANA: 3 Review of Systems All systems reviewed & are unremarkable except as noted in HPI and below Constitutional Constitutional: Denies chills and Denies fever(s) Cardiovascular Cardiovascular: Denies chest pain and Denies dyspnea Respiratory Respiratory: Denies cough and Denies dyspnea Genitourinary Genitourinary: Denies dysuria Integumentary/Breasts Skin/Breast: Denies rash [facility] Social History Smoking/Tobacco Use Status: Never Alcohol Intake: current Alcohol Intake frequency: holidays/special occasions only Alcohol type: wine Drug use: Never Substance use type: does not use Details: alcohol: t-7 Household members: spouse Housing: house Communication Needs: None Do you need help understanding health information?: Rarely Pets and animals: Yes Pets and animals: cat(s) Do you think of yourself as: straight/heterosexual Current gender identity: female What is your relationship status?: How often do you talk on the phone with friends or family?: decline to answer How often do you get together with friends or relatives?: twice per week How often do you attend judaism or yarsani services?: 1-3 times per year Do you belong to any clubs or organized social groups?: decline to answer Panel score (0-1 are the most socially isolated patients): 1 What type of physical activity do you participate in: walking Duration: 15-30 minutes/day Frequency: 5-6 times per week Destini/Druze: Caodaism Special destini needs: No Seatbelt use: always Helmet use: No Drive intox or ride w/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 Do you feel safe at home: Yes Do you feel safe in your relationship?: Yes History History 2 Para 2 Hx # Term Pregnancies Multiple births Hx # Pregnancies Ectopic pregnancies AB induced Hx Number of Living Children AB spontaneous Exam Const General: no acute distress Orientation: alert HENMT Head: normal to inspection Ears: external ears normal General nose exam: external nose normal Mouth: moist mucous membranes Eyes General: appearance normal, both eyes and all related structures Neck Neck: normal visual inspection Resp Effort & Inspection: normal respiratory effort and able to speak in complete sentences Cardio Rate: regular rate GI Inspection: no abdominal wall ecchymosis Skin General skin exam: no rashes or lesions noted Neuro General: alert and oriented x3 Extrem General: normal to inspection Psych Mental Status: mental status grossly normal Course Vital Signs Vital signs: Vital Signs Temperature 36.8 C 09/20/19 02:10 Pulse 91 H 09/20/19 02:10 Respiratory Rate 09/20/19 02:10 Blood Pressure 148/78 H 09/20/19 02:10 Pulse Oximetry 97 09/20/19 02:10 Temperature 36.8 C 09/20/19 02:10 Temperature Source Temporal Artery Scan 09/20/19 02:10 Pulse 91 H 09/20/19 02:10 Respiratory Rate 09/20/19 02:10 Respiratory Effort Non-Labored 09/20/19 02:15 Blood Pressure 148/78 H 09/20/19 02:10 Blood Pressure Position Sitting 09/20/19 02:10 Pulse Oximetry 97 09/20/19 02:10 Oxygen Delivery Method Room Air 09/20/19 02:10 Oxygen Flow Rate 0 09/20/19 02:10 Pain Level 10 09/20/19 02:15
[2019-09-20 02:42] LABS: Platelet Count 801 x1000/uL (130-400)
[2019-09-20 02:47] LABS: ALT 41 U/L (14-59); AST 44 U/L (15-37); Albumin 3.6 g/dL (3.4-5.0); Alkaline Phosphatase 529 U/L (46-116); Anion Gap 10.9 mmol/L (3-11); BUN 14 mg/dL (7-18); Bilirubin, Direct 0.15 mg/dL (0.00-0.20); Bilirubin, Total 0.4 mg/dL (0.2-1.0); CO2 29.1 mmol/L (21.0-32.0); CREATININE 0.89 mg/dL (0.55-1.02); Calcium 10.2 mg/dL (8.5-10.1); Chloride 95 mmol/L (98-107); Glucose 125 mg/dL (74-106); Lipase 79 U/L (73-393); Potassium 3.9 mmol/L (3.5-5.1); Sodium 135 mmol/L (136-145); Total Protein 8.7 g/dL (6.4-8.2)
[2019-09-20 02:54] LABS: INR 1.2 (0.9-1.1); PTT Activated 26.2 sec (21.0-31.4); Prothrombin Time 12.3 sec (9.3-11.0)
[2019-09-20] MEDS: Normal Saline 1,000 ML 1000 ML IV ×2 (03:01→03:22)
--- NOTE | 2019-09-20 03:28 | DI.CT_ITS ---
EXAM: CT ABDOMEN PELVIS W CLINICAL HISTORY: abdominal pain, n/v, recent bowel resection TECHNIQUE: Post IV and without oral contrast. FINDINGS: The lung bases are clear. There has been interval increase in size of previously noted lesion at t he dome of the liver. The findings could represent a metastatic lesion. The gallbladder, spleen, partida creas and adrenals are unremarkable. There is now mild left hydronephrosis. There has been interval resection of the rectum. Multiple soft tissue masses are seen in the pelvis. The bladder appears in tact. There is abnormal dilatation of multiple loops of small bowel. There is a new ostomy seen adali trally in the abdomen. No free air or free fluid is seen. IMPRESSION: Small bowel obstruction. New mild left hydronephrosis. Status post resection of the rectum. Multip le soft tissue density pelvic masses are seen.
[2019-09-20] MEDS: Omnipaque 350 MG/ML 100 ML BTL IJ (03:39)
--- NOTE | 2019-09-20 04:12 | DI.VRAD_ITS ---
PROCEDURE INFORMATION: Exam: CT Abdomen And Pelvis With Contrast Exam date and time: 09/20/2019 3:11 AM Age: 59 years old Clinical indication: Nausea and vomiting; Prior surgery; Patient HX: Abdominal pain, n/v, recent bowel resection, history of colon cancer per prior reports TECHNIQUE: Imaging protocol: Computed tomography of the abdomen and pelvis with intravenous contrast. COMPARISON: CT Abdomen^CAP STAGING (Adult) 04/30/2018 9:41 AM, CT of abdomen pelvis from August 23, 2016 FINDINGS: Lungs: There is minimal bibasilar atelectasis. Liver: Hypoenhancing lesion, posteriorly in dome of the liver measures 1.6 as compared to 1 cm on both prior studies. No new liver lesions. Liver normal in size and parenchymal enhancement. Gallbladder and bile ducts: Normal. No calcified stones. No ductal dilation. Pancreas: Normal. No ductal dilation. Spleen: Normal. No splenomegaly. Adrenals: Normal. No mass. Kidneys and ureters: No radiopaque renal, ureteric or bladder calculi identified. New, mild left hydroureter and hydronephrosis without obvious cause. Stomach and bowel: Stomach contracted. Interval resection of distal colon. Left lower quadrant ileostomy. Multiple dilated loops of small bowel with fluid/debris levels. Appendix: No evidence of appendicitis. Intraperitoneal space: No free intraperitoneal gas.There is a small amount of free intraperitoneal fluid present. Vasculature: Unremarkable. No abdominal aortic aneurysm. Lymph nodes: Unremarkable. No enlarged lymph nodes. Bladder: Unremarkable as visualized. Reproductive: Anteverted uterus. Bones/joints: Unremarkable. No acute fracture. The spine demonstrates mild degenerative changes at multiple levels. Soft tissues: Left pelvic calcification at level of pubic symphysis is unchanged in position or size. IMPRESSION: 1. Small bowel obstruction. 2. New, mild left hydronephrosis and hydroureter. 3. Interval increase in size of probably benign lesion in right lobe of liver. Dictated and Authenticated by: Florencio Mcguire MD. Ordering:LIZETTE Campos MD
[2019-09-20 04:30] LABS: Abs Immature Grans 0.07 k/cumm (0.0-0.09); Absolute Basophil Count 0.02 k/cumm (0.0-0.2); Absolute Monocyte Count 0.74 k/cumm (0.11-0.7); Basophils % 0.1; HCT 30.6 % (36.0-46.0); HGB 9.9 g/dL (12.0-15.5); Immature Grans % 0.3 %; Lactate 1.6 mmol/L (0.6-1.4); Lymphocytes % 2.3; Mean Corp. HGB Concentration 32.4 g/dL (32.0-36.0); Mean Corpuscular Volume 83.6 fL (80-95); Mean Platelet Volume 9.1 fL (8.0-11.0); Monocytes % 3.2; Neutrophils % 94.1; Platelet Count 584 x1000/uL (130-400); RBC 3.66 m/cumm (4.00-5.20); RBC Distribution Width 13.2 % (11.7-14.6); White Blood Cell Count 23.23 k/cumm (4.4-10.8)
[2019-09-20] MEDS: fentaNYL 100 MCG/2 ML VIAL 50 MCG IVP (04:30)
[2019-09-20] MEDS: Normal Saline 1,000 ML 150 ML IV ×2 (04:33→08:31)
[2019-09-20 04:34] LABS: Absolute Lymphocyte Count 0.53 k/cumm (1.2-3.4); Absolute Neutrophil Count 21.86 k/cumm (1.2-6.7)
[2019-09-20 04:39] LABS: Bilirubin Negative (Negative); Blood Negative (Negative); Clarity Clear (Clear); Glucose Negative (Negative); Ketones Negative (Negative); Leukocyte Esterase Small (Negative); Nitrite Negative (Negative); Urobilinogen 0.2 EU/dL (Up TO 0.2)
[2019-09-20 04:53] LABS: Bacteria Few HPF (Negative); Epithelial Cells Few HPF (Negative); WBC 20-50 HPF (0-5)
[2019-09-20 04:54] LABS: C & S Indicated? Yes
[2019-09-20 05:14] LABS: Diff Comment Agrees w/ Instrument; RBC Morphology Normal
--- NOTE | 2019-09-20 08:32 | PDOC.CMIN ---
- If Service Date Differs Date of service: 09/20/19 Time of Service: 08:32 Care Management Initial Assess REASON FOR HOSPITALIZATION:: SBO PAST MEDICAL HISTORY/PAST SURGICAL HISTORY:: Past medical history: Chronic gastritis. Essential hypertension. FAP. Primary malignant neoplasm of colon. Rectal adenocarcinoma PREVIOUS FUNCTIONAL STATUS/SOCIAL/FAMILY SUPPORTS:: Rafaela lives in a single family home in [place] with her Antonio. They have 2 adult children, one of whom is in the area. They described them as very supportive. Rafaela is employed at [employer] but has been out of work for the past 2 months. She hopes to be able to return in November. CURRENT FUNCTIONAL STATUS:: rafaela was sitting up in bed visiting with her when CM met with them. She shared the course of her ilness over the past 2 months and the challenges hayley has faced. She is scheduled to meet with Oncology at [facility] in early September when her chemptherapy regimen will be discussed. Rafaela shared that she is doing fairly well at the time. She had a 12 hour surgery that included reconstruction in her perirectal area as well as abdomen. She shared that part os her vagina as well as her tailbone were remoned. She states that she continues to have pain but it is manageable. She is able to provide her own care with the help of her usband who is very involved and supportive. ADVANCE DIRECTIVES:: none on file Has patient been provided with information about the portal?: No Did the patient sign up for the portal?: No CODE STATUS:: Full Code INSURANCE COVERAGE / FINANCIAL ISSUES:: [employer] CURRENT HOME/COMMUNITY SERVICES/EQUIPMENT:: [employer] PRIMARY CARE PHYSICIAN:: David De Los Santos POTENTIAL DISCHARGE NEEDS:: Follow up with surgeon, PCP and discharge plan of care PATIENT/FAMILY EDUCATION NEEDS:: Discharge plan, limitations, follow up plan, Ask Me Three TRANSPORTATION:: via private vehicle with family PLAN:: Rafaela will return home with no new services. She will transport with her via private vehicle and follow up with her surgeon and Oncologist and medical team at [facility]. CM will continue to support patient, family and discharge planning needs.
--- NOTE | 2019-09-20 10:09 | W.PM.HP.N ---
Date of service: 09/20/19 Time of Service: 10:09 Assessment and Plan Assessment and plan (1) Small bowel obstruction: Status: Acute Assessment and plan: Her ostomy has started functioning although not with the usual output. Will keep on sips of clears for now. We discussed the indications for an NG. She had one placed for a few days at [facility] and is familiar with the process. Will hold off now that her symptoms are improving. Her elevated WBC may be related to vomiting. She has not had a fever and has no obvious evidence of infection. CBC ordered for this afternoon. UA is pending. She reportedly had significant adhesions found during surgery so the goal is nonoperative management. History of Present Illness Narrative: This patient presented to the ER last night with complaints of decreased ostomy output for 12 hours, crampy abdominal pain and vomiting. Her recent surgical history is significant for an abdominoperineal resection with a rectus flap done 07/31/2019 at [facility]. She was discharged on 08/14/2019 and has been making a slow recovery. The patient has FAP and had a subtotal colectomy with ileal pouch in 1993 with neoadjuvant chemoradiation. During this recent procedure she had the pouch resected for a tumor recurrence. The patient has been faithfully adhering to limited sitting on her perineal flap. She has been in general tolerating a diet and staying hydrated. She had a PICC line placed after surgery for fluids but this has been removed. She was also packing a small opening on the flap which is now closed. She has not had any fevers. Upon presentation to the ER she had a CT scan of the abdomen and pelvis which I have reviewed. This showed some dilated small bowel and some free fluid in the pelvis of uncertain etiology. Since admission she has noted some ostomy output and is feeling better. Review of Systems Constitutional Constitutional: Denies headache(s) Eyes Eyes: Denies change in vision ENT Ears, Nose, Mouth, and Throat: Denies headache(s) and Denies neck mass Cardiovascular Cardiovascular: Denies chest pain, Denies edema, Denies palpitations and Denies dyspnea Respiratory Respiratory: Denies cough, Denies dyspnea and Denies wheezing Genitourinary Genitourinary: Denies abnormal vaginal bleeding and Denies dysuria Musculoskeletal Musculoskeletal: Denies joint swelling Integumentary/Breasts Skin/Breast: Denies new lesions and Denies rash Neurologic Neurologic: Denies confusion, Denies headache(s) and Denies focal weakness Psychiatric Psychiatric: Reports system reviewed and no additional complaints, except as docu and Denies confusion Endocrine Endocrine: Denies palpitations Hematologic/Lymphatic Hematologic/Lymphatic: Denies easy bleeding and Denies lymphadenopathy Allergic/Immunologic Allergic/Immunologic: Denies wheezing [facility] Medical History Chronic gastritis (Acute 11/01/17) Essential (primary) hypertension (Acute) FAP (familial adenomatous polyposis) (Chronic) History of Helicobacter pylori infection (Chronic) 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 Rectal adenocarcinoma (Acute 04/25/18) Dr Ceballos Tubular adenoma (Acute) 11/23/15-DR. DALE 12/12/16-DR. DALE 11/01/16, tubular adenoma of rectal stump and anal verge, Dr Ted Ceballos -2017 tubular adenoma of rectal stump tubular adenoma anal verge Surgical History Abnormal colonoscopy (Inactive 04/25/18) Dr Ceballos, flex sigmoidoscopy Anoscopy (07/09/17) Colectomy (~1993) LARGE BOWEL reanastomosis colonoscopy (12/12/16) Colonoscopy - MAC (11/01/17) EGD - MAC (11/01/17) EGD - MAC (04/25/18) EXCISION SEBACEOUS CYST (04/11/15) LEFT POSTAURICULAR REGION History of esophagogastroduodenoscopy (EGD) (Chronic 04/25/18) Dr Ceballos Sigmoidoscopy (06/01/19) 04/25/18- malignant polyp surveillance of rectal stump (12/12/16) Family History Mother Essential hypertension Father , 84 Heart disease CABG AGE 82 Prostate cancer Son FAP (familial adenomatous polyposis) Daughter Thyroid cancer Sister No problems noted. Brother No problems noted. Sister No problems noted. Sister No problems noted. Brother No problems noted. Social History Smoking/Tobacco Use Status: Never Alcohol Intake: current Alcohol Intake frequency: holidays/special occasions only Alcohol type: wine Drug use: Never Substance use type: does not use Details: alcohol: t-7 Household members: spouse Housing: house Communication Needs: None Do you need help understanding health information?: Rarely Pets and animals: Yes Pets and animals: cat(s) Do you think of yourself as: straight/heterosexual Current gender identity: female What is your relationship status?: How often do you talk on the phone with friends or family?: decline to answer How often do you get together with friends or relatives?: twice per week How often do you attend orthodox or baptist services?: 1-3 times per year Do you belong to any clubs or organized social groups?: decline to answer Panel score (0-1 are the most socially isolated patients): 1 What type of physical activity do you participate in: walking Duration: 15-30 minutes/day Frequency: 5-6 times per week Destini/Holiness: Congregational Special destini needs: No Seatbelt use: always Helmet use: No Drive 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 Meds Home Medications and Allergies Home Medications Medication Instructions Recorded Confirmed Type hydrochlorothiazide 25 mg tablet 25 mg PO DAILY #90 tab 02/04/19 07/07/19 Rx Sean-Citrate 600 tab PO DAILY 06/01/19 09/20/19 History vit D3-folic [id number] 1 tab PO DAILY 06/01/19 09/20/19 History Allergies Allergy/AdvReac Type Severity Reaction Status Date / Time morphine AdvReac Intermediate BAD DREAMS Verified 09/20/19 02:13 Exam Narrative Exam Narrative: Resting comfortably on side Lungs CTA Heart RRR, not tachycardic Abdomen soft, nondistended. More full on left side due to removal of rectus muscle on right. Ostomy with thick stool output, looks viable. Midline incision healed well Perineal flap looks healthy without breakdown or infection. Results Labs Result diagrams: 09/20/19 04:22 09/20/19 02:20 Labs: Laboratory Results - last 24 hr 09/20/19 09/20/19 09/20/19 02:20 02:20 02:20 WBC 21.48 H RBC 4.43 Hgb 11.9 L Hct 36.7 MCV 82.8 MCH 26.9 L MCHC 32.4 RDW 13.4 Plt Count 801 H* MPV 9.3 Immature Gran % 0.4 Neutrophils % 89.8 Lymphocytes % 5.1 Monocytes % 4.4 Eosinophils % 0.2 Basophils % 0.1 Absolute Neutrophils 19.29 H Absolute Lymphocytes 1.10 L Absolute Monocytes 0.95 H Absolute Eosinophils 0.04 Absolute Basophils 0.02 Differential Comment RBC Morphology PT INR APTT Sodium 135 L Potassium 3.9 Chloride 95 L Carbon Dioxide 29.1 Anion Gap 10.9 BUN 14 Creatinine 0.89 Estimated GFR/1.73 m2 >= 60.00 Glucose 125 H Lactate 4.0 H* Calcium 10.2 H Total Bilirubin 0.4 Conjugated Bilirubin 0.15 AST 44 H ALT 41 Alkaline Phosphatase 529 H Total Protein 8.7 H Albumin 3.6 Lipase 79 Urine Color Urine Clarity Urine pH Ur Specific Atkinson Urine Protein Urine Ketones Urine Blood Urine Nitrite Urine Bilirubin Urine Urobilinogen Ur Leukocyte Esterase Urine RBC Urine WBC Ur Epithelial Cells Urine Crystals Urine Bacteria Urine Mucus Ur Culture Indicated? Urine Glucose 09/20/19 09/20/19 09/20/19 02:20 04:15 04:22 WBC RBC Hgb Hct MCV MCH MCHC RDW Plt Count MPV Immature Gran % Neutrophils % Lymphocytes % Monocytes % Eosinophils % Basophils % Absolute Neutrophils Absolute Lymphocytes Absolute Monocytes Absolute Eosinophils Absolute Basophils Differential Comment RBC Morphology PT 12.3 H INR 1.2 H APTT 26.2 Sodium Potassium Chloride Carbon Dioxide Anion Gap BUN Creatinine Estimated GFR/1.73 m2 Glucose Lactate 1.6 H Calcium Total Bilirubin Conjugated Bilirubin AST ALT Alkaline Phosphatase Total Protein Albumin Lipase Urine Color Yellow Urine Clarity Clear Urine pH 7.0 Ur Specific Atkinson 1.010 Urine Protein Negative Urine Ketones Negative Urine Blood Negative Urine Nitrite Negative Urine Bilirubin Negative Urine Urobilinogen 0.2 Ur Leukocyte Esterase Small H Urine RBC Not Applicable Urine WBC 20-50 H Ur Epithelial Cells Few Urine Crystals Not Applicable Urine Bacteria Few Urine Mucus Not Applicable Ur Culture Indicated? Yes Urine Glucose Negative 09/20/19 04:22 WBC 23.23 H RBC 3.66 L Hgb 9.9 L Hct 30.6 L MCV 83.6 MCH 27.0 MCHC 32.4 RDW 13.2 Plt Count 584 H D MPV 9.1 Immature Gran % 0.3 Neutrophils % 94.1 Lymphocytes % 2.3 Monocytes % 3.2 Eosinophils % 0.0 Basophils % 0.1 Absolute Neutrophils 21.86 H Absolute Lymphocytes 0.53 L Absolute Monocytes 0.74 H Absolute Eosinophils 0.00 Absolute Basophils 0.02 Differential Comment Agrees w/ instrument RBC Morphology Normal PT INR APTT Sodium Potassium Chloride Carbon Dioxide Anion Gap BUN Creatinine Estimated GFR/1.73 m2 Glucose Lactate Calcium Total Bilirubin Conjugated Bilirubin AST ALT Alkaline Phosphatase Total Protein Albumin Lipase Urine Color Urine Clarity Urine pH Ur Specific Atkinson Urine Protein Urine Ketones Urine Blood Urine Nitrite Urine Bilirubin Urine Urobilinogen Ur Leukocyte Esterase Urine RBC Urine WBC Ur Epithelial Cells Urine Crystals Urine Bacteria Urine Mucus Ur Culture Indicated? Urine Glucose Last Vital Signs Temp 99.3 F 09/20/19 07:43 Pulse 86 09/20/19 07:43 Resp 17 09/20/19 07:43 BP 112/62 09/20/19 07:43 Pulse Ox 97 09/20/19 07:43
[2019-09-20 14:10] LABS: Abs Immature Grans 0.04 k/cumm (0.0-0.09); Absolute Basophil Count 0.01 k/cumm (0.0-0.2); Absolute Eosinophil Count 0.09 k/cumm (0.0-0.7); Absolute Lymphocyte Count 0.89 k/cumm (1.2-3.4); Absolute Monocyte Count 0.94 k/cumm (0.11-0.7); Absolute Neutrophil Count 12.54 k/cumm (1.2-6.7); Basophils % 0.1; Eosinophils % 0.6; HCT 28.8 % (36.0-46.0); HGB 9.2 g/dL (12.0-15.5); Immature Grans % 0.3 %; Lymphocytes % 6.1; Mean Corp. HGB Concentration 31.9 g/dL (32.0-36.0); Mean Corpuscular Hemoglobin 27.1 pg (27.0-33.0); Mean Corpuscular Volume 84.7 fL (80-95); Mean Platelet Volume 9.4 fL (8.0-11.0); Monocytes % 6.5; Neutrophils % 86.4; Platelet Count 547 x1000/uL (130-400); RBC Distribution Width 13.3 % (11.7-14.6); White Blood Cell Count 14.51 k/cumm (4.4-10.8)
[2019-09-20] MEDS: Normal Saline 1,000 ML 125 ML IV (15:47)
--- NOTE | 2019-09-20 16:35 | W.PM.DS.N ---
Date of service: 09/20/19 Time of Service: 16:35 DS: Diagnosis Discharge Diagnosis (1) Small bowel obstruction: Status: Acute Discharge Plan Disposition Patient Disposition: HOME Condition: Improving Discharge Details Chief Complaint: Abd Prob Clinical Impression: Small bowel obstruction Reason For Visit: SMALL BOWEL OBSTRUCTION Admit Date/Time: 09/20/19 05:08 Admit Provider: Julia Fink Attending Provider: Julia Fink Primary Care Provider: David Isabel ED Provider: Andres Rayo Hospital Course Hospital Course: The patients ostomy began having output a few hours after admission and by the afternoon was a large volume. Her pain resolved and she was tolerating a clear diet. Her WBC was normalizing with fluids and she was afebrile so no antibiotics were given. She was advised to contact me for any fever or worsening symptoms. Home Meds and New Rx's Prescriptions: New diazepam [Valium] 2 mg tablet 2 mg PO ONCE PRN (Reason: muscle spasm) Qty: 14 RF: 0 Continued hydrochlorothiazide 25 mg tablet 25 mg PO DAILY Qty: 90 RF: 3 Sean-Citrate 250-100 mg-unit Tablet 600 tab PO DAILY RF: 0 vit D3-folic cuor-M3-L1-B12 2,000-800-0.32 unit-mcg-mg Tablet 1 tab PO DAILY RF: 0 Discharge Instructions Activity:: As previously instructed Equipment/Supplies:: No Equipment Needed Diet:: Full liquids for 1-2 days Discharge Orders Discharge Orders: Discharge Order (Routine); Ordered 09/20/19 Ordered By: Julia Fink DS: Summary Status at Discharge Functional status at discharge: independent ambulation Overall status at discharge: patient is back to baseline Mental Status: mental status grossly normal Speech and Movement: speech and movement normal Mood: congruent mood Affect: normal affect Exam Psych Mental Status: mental status grossly normal Speech and Movement: speech and movement normal Mood: congruent mood Affect: normal affect DS: Data Vitals/I&O Vitals and I&O: Vital Signs Temperature 98.4 F 09/20/19 16:26 Temperature Source Tympanic 09/20/19 16:26 Pulse 68 09/20/19 16:26 Pulse Rhythm Regular 09/20/19 09:00 Respiratory Rate 18 09/20/19 16:26 Respiratory Effort Non-Labored 09/20/19 09:00 Respiratory Depth Normal 09/20/19 09:00 Respiratory Pattern Normal 09/20/19 09:00 Blood Pressure 120/70 09/20/19 16:26 Blood Pressure Position Sitting 09/20/19 02:10 Pulse Oximetry 95 09/20/19 16:26 Oxygen Delivery Method Room Air 09/20/19 16:26 Oxygen Flow Rate 0 09/20/19 16:26 Pain Level 0 09/20/19 16:26 Intake & Output 09/19/19 09/20/19 09/20/19 23:59 11:59 23:59 Intake Total 1292.5 / 2047.083 754.583 / 2047.083 Output Total 1000 / 1000 Balance 1292.5 / 1047.083 -245.417 / 1047.083 Weight 141 lb 12.116 oz Intake: IV 1292.5 / 1957.083 664.583 / 1957.083 Oral 90 / 90 Output: Stool 1000 / 1000 Other: Urine Appearance Clear Stool Characteristics Liquid Data Completed and Pending Labs on day of discharge: Labs from last 24 hours 09/20/19 09/20/19 09/20/19 13:50 04:22 04:22 WBC 14.51 H D 23.23 H RBC 3.40 L 3.66 L Hgb 9.2 L 9.9 L Hct 28.8 L 30.6 L MCV 84.7 83.6 MCH 27.1 27.0 MCHC 31.9 L 32.4 RDW 13.3 13.2 Plt Count 547 H 584 H D MPV 9.4 9.1 Immature Gran % 0.3 0.3 Neutrophils % 86.4 94.1 Lymphocytes % 6.1 2.3 Monocytes % 6.5 3.2 Eosinophils % 0.6 0.0 Basophils % 0.1 0.1 Absolute Neutrophils 12.54 H 21.86 H Absolute Lymphocytes 0.89 L 0.53 L Absolute Monocytes 0.94 H 0.74 H Absolute Eosinophils 0.09 0.00 Absolute Basophils 0.01 0.02 Differential Comment Agrees w/ instrument RBC Morphology Normal PT INR APTT Sodium Potassium Chloride Carbon Dioxide Anion Gap BUN Creatinine Estimated GFR/1.73 m2 Glucose Lactate 1.6 H Calcium Total Bilirubin Conjugated Bilirubin AST ALT Alkaline Phosphatase Total Protein Albumin Lipase Urine Color Urine Clarity Urine pH Ur Specific [place] Urine Protein Urine Ketones Urine Blood Urine Nitrite Urine Bilirubin Urine Urobilinogen Ur Leukocyte Esterase Urine RBC Urine WBC Ur Epithelial Cells Urine Crystals Urine Bacteria Urine Mucus Ur Culture Indicated? Urine Glucose 09/20/19 09/20/19 09/20/19 04:15 02:20 02:20 WBC 21.48 H RBC 4.43 Hgb 11.9 L Hct 36.7 MCV 82.8 MCH 26.9 L MCHC 32.4 RDW 13.4 Plt Count 801 H* MPV 9.3 Immature Gran % 0.4 Neutrophils % 89.8 Lymphocytes % 5.1 Monocytes % 4.4 Eosinophils % 0.2 Basophils % 0.1 Absolute Neutrophils 19.29 H Absolute Lymphocytes 1.10 L Absolute Monocytes 0.95 H Absolute Eosinophils 0.04 Absolute Basophils 0.02 Differential Comment RBC Morphology PT 12.3 H INR 1.2 H APTT 26.2 Sodium Potassium Chloride Carbon Dioxide Anion Gap BUN Creatinine Estimated GFR/1.73 m2 Glucose Lactate Calcium Total Bilirubin Conjugated Bilirubin AST ALT Alkaline Phosphatase Total Protein Albumin Lipase Urine Color Yellow Urine Clarity Clear Urine pH 7.0 Ur Specific [place] 1.010 Urine Protein Negative Urine Ketones Negative Urine Blood Negative Urine Nitrite Negative Urine Bilirubin Negative Urine Urobilinogen 0.2 Ur Leukocyte Esterase Small H Urine RBC Not Applicable Urine WBC 20-50 H Ur Epithelial Cells Few Urine Crystals Not Applicable Urine Bacteria Few Urine Mucus Not Applicable Ur Culture Indicated? Yes Urine Glucose Negative 09/20/19 09/20/19 02:20 02:20 WBC RBC Hgb Hct MCV MCH MCHC RDW Plt Count MPV Immature Gran % Neutrophils % Lymphocytes % Monocytes % Eosinophils % Basophils % Absolute Neutrophils Absolute Lymphocytes Absolute Monocytes Absolute Eosinophils Absolute Basophils Differential Comment RBC Morphology PT INR APTT Sodium 135 L Potassium 3.9 Chloride 95 L Carbon Dioxide 29.1 Anion Gap 10.9 BUN 14 Creatinine 0.89 Estimated GFR/1.73 m2 >= 60.00 Glucose 125 H Lactate 4.0 H* Calcium 10.2 H Total Bilirubin 0.4 Conjugated Bilirubin 0.15 AST 44 H ALT 41 Alkaline Phosphatase 529 H Total Protein 8.7 H Albumin 3.6 Lipase 79 Urine Color Urine Clarity Urine pH Ur Specific [place] Urine Protein Urine Ketones Urine Blood Urine Nitrite Urine Bilirubin Urine Urobilinogen Ur Leukocyte Esterase Urine RBC Urine WBC Ur Epithelial Cells Urine Crystals Urine Bacteria Urine Mucus Ur Culture Indicated? Urine Glucose 09/20/19 04:15 Urine - Reflex from [facility] Urine Culture - Pending Preliminary micro results at discharge 09/20/19 04:15 Urine Culture - Pending Urine - Reflex from [facility] Medical History Chronic gastritis (Acute 11/01/17) Essential (primary) hypertension (Acute) FAP (familial adenomatous polyposis) (Chronic) History of Helicobacter pylori infection (Chronic) 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 Rectal adenocarcinoma (Acute 04/25/18) Dr Ceballos Tubular adenoma (Acute) 11/23/15-DR. DALE 12/12/16-DR. DALE 11/01/16, tubular adenoma of rectal stump and anal verge, Dr Ted Ceballos tubular adenoma of rectal stump tubular adenoma anal verge Surgical History Abnormal colonoscopy (Inactive 04/25/18) Dr Ceballos, flex sigmoidoscopy Anoscopy (07/09/17) Colectomy (~1993) LARGE BOWEL reanastomosis colonoscopy (12/12/16) Colonoscopy - MAC (11/01/17) EGD - MAC (11/01/17) EGD - MAC (04/25/18) EXCISION SEBACEOUS CYST (04/11/15) LEFT POSTAURICULAR REGION History of esophagogastroduodenoscopy (EGD) (Chronic 04/25/18) Dr Ceballos Sigmoidoscopy (06/01/19) 04/25/18- malignant polyp surveillance of rectal stump (12/12/16) Family History Mother Essential hypertension Father , 84 Heart disease CABG AGE 82 Prostate cancer Son FAP (familial adenomatous polyposis) Daughter Thyroid cancer Sister No problems noted. Brother No problems noted. Sister No problems noted. Sister No problems noted. Brother No problems noted. Social History Smoking/Tobacco Use Status: Never Alcohol Intake: current Alcohol Intake frequency: holidays/special occasions only Alcohol type: wine Drug use: Never Substance use type: does not use Details: alcohol: t-7 Household members: spouse Housing: house Communication Needs: None Do you need help understanding health information?: Rarely Pets and animals: Yes Pets and animals: cat(s) Do you think of yourself as: straight/heterosexual Current gender identity: female What is your relationship status?: How often do you talk on the phone with friends or family?: decline to answer How often do you get together with friends or relatives?: twice per week How often do you attend restorationism or adventism services?: 1-3 times per year Do you belong to any clubs or organized social groups?: decline to answer Panel score (0-1 are the most socially isolated patients): 1 What type of physical activity do you participate in: walking Duration: 15-30 minutes/day Frequency: 5-6 times per week Destini/Restorationist: Shinto Special destini needs: No Seatbelt use: always Helmet use: No Drive 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
== END 2019-09-20 17:30 | disposition home or self-care (01) | DRG 394 ==
LOC: ER 05:30 → MS 06:12
PROVIDERS: Admitting Provider Surgery; Emergency Provider Emergency Medicine; PCP Family Medicine; Visit Provider Surgery
DX: K94.09 Other complications of colostomy (principal); K56.609 Unspecified intestinal obstruction, unspecified as to partial versus complete obstruction; Z90.49 Acquired absence of other specified parts of digestive tract; Z85.038 Personal history of other malignant neoplasm of large intestine; I10 Essential (primary) hypertension
CPT/HCPCS: 36415; 80053; 83690; 96361; 96374; 96375; 96376; 99223; 99238; 99285; 74177; 81003; 81015; 82248; 83605; 85025; 85610; 85730; 87086; J2405; J3010; J3360; J3490

== ENCOUNTER 2019-09-30 02:37 | Outpatient (CLI) | payer OTHER, SELFPAY ==
[2019-09-30 14:07] LABS: Abs Immature Grans 0.02 k/cumm (0.0-0.09); Absolute Basophil Count 0.03 k/cumm (0.0-0.2); Absolute Eosinophil Count 0.06 k/cumm (0.0-0.7); Absolute Monocyte Count 0.78 k/cumm (0.11-0.7); Absolute Neutrophil Count 8.19 k/cumm (1.2-6.7); Basophils % 0.3; Eosinophils % 0.6; HCT 34.3 % (36.0-46.0); HGB 10.7 g/dL (12.0-15.5); Immature Grans % 0.2 %; Lymphocytes % 7.2; Mean Corp. HGB Concentration 31.2 g/dL (32.0-36.0); Mean Corpuscular Hemoglobin 25.8 pg (27.0-33.0); Mean Corpuscular Volume 82.9 fL (80-95); Mean Platelet Volume 9.9 fL (8.0-11.0); Neutrophils % 83.7; Platelet Count 553 x1000/uL (130-400); RBC 4.14 m/cumm (4.00-5.20); RBC Distribution Width 13.6 % (11.7-14.6); White Blood Cell Count 9.78 k/cumm (4.4-10.8)
[2019-09-30 14:15] LABS: ALT 48 U/L (14-59); AST 43 U/L (15-37); Albumin 3.2 g/dL (3.4-5.0); Alkaline Phosphatase 392 U/L (46-116); Anion Gap 6.8 mmol/L (3-11); BUN 14 mg/dL (7-18); Bilirubin, Total 0.3 mg/dL (0.2-1.0); CO2 32.2 mmol/L (21.0-32.0); Calcium 9.1 mg/dL (8.5-10.1); Chloride 98 mmol/L (98-107); Estimated GFR 56.75 (mL/min/1.73m2); Glucose 99 mg/dL (74-106); Potassium 3.5 mmol/L (3.5-5.1); Sodium 137 mmol/L (136-145); Total Protein 7.8 g/dL (6.4-8.2)
[2019-10-01 13:51] LABS: CEA 1.1 ng/mL (See Note)
== END 2019-09-30 02:57 ==
PROVIDERS: PCP Family Medicine; Visit Provider Internal Medicine Hematology & Oncology
DX: C20 Malignant neoplasm of rectum (principal)
CPT/HCPCS: 36415; 80053; 81232; 82378; 85025

== ENCOUNTER 2019-10-07 06:27 | Day surgery (SDC) | payer OTHER, SELFPAY ==
--- NOTE | 2019-10-07 06:27 | W.PM.HP.N ---
Date of service: 10/07/19 Assessment and Plan Assessment and plan (1) Rectal adenocarcinoma: Status: Acute Assessment and plan: A\\Jillian is here today to have a port placed for chemotherapy after being diagnosed with rectal cancer at the ileal pouch anal anastomosis. P\\left, possibly right subclavian vein port placement under fluoroscopy. Risks, benefits, complications of the procedure were reviewed with her. Complications include but are not limited to bleeding, infection, pneumothorax, injury to the subclavian vein or artery, malfunction, skin necrosis and adverse reaction to the medications. Questions were entertained and answered to her satisfaction and she wished to proceed. No guarantees were given or implied. History of Present Illness History of Present Illness Chief Complaint: Rectal cancer Narrative: Jillian is here today to have a Port placed for chemotherapy. Jillian has familial adenomatous polyposis and was diagnosed with rectal cancer in 1993 she underwent a total proctocolectomy with IPAA. At that time she did not receive postoperative chemotherapy. She had been getting regular surveillance of her rectum and ileal rectal anastomosis and last year I found some dysplasia in some of my biopsy. She was referred back to [facility] where they did more extensive biopsies and found that she unfortunately had adenocarcinoma. She underwent proctectomy with abdominoperineal pull-through myocutaneous flap on July of last year. The adenocarcinoma was noted in note in the ileal anal anastomosis and it extended through the muscularis propria into the jorje-colorectal tissue. She will be starting chemotherapy and we were asked to place a port for that. Jillian is doing okay she is still slowly recovering from surgery. Review of Systems Constitutional Constitutional: Reports fatigue, Denies fever(s), Reports poor appetite and Reports weight loss Eyes Eyes: Denies change in vision ENT Ears, Nose, Mouth, and Throat: Denies dysphagia and Denies hoarseness Cardiovascular Cardiovascular: Denies chest pain, Denies chest pain at rest, Denies irregular heart rhythm, Denies palpitations, Denies dyspnea and Denies dyspnea on exertion Respiratory Respiratory: Denies chest congestion, Denies cough, Denies dyspnea and Denies dyspnea on exertion Gastrointestinal Gastrointestinal: Reports as per HPI, Denies dysphagia, Denies dyspepsia and Denies heartburn Genitourinary Genitourinary: Reports system reviewed and no additional complaints, except as docu Endocrine Endocrine: Reports fatigue and Denies palpitations [facility] Medical History Chronic gastritis (Acute 11/01/17) Essential (primary) hypertension (Acute) FAP (familial adenomatous polyposis) (Chronic) History of Helicobacter pylori infection (Chronic) 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 Rectal adenocarcinoma (Acute 04/25/18) Dr Ceballos Tubular adenoma (Acute) 11/23/15-DR. DALE 12/12/16-DR. DALE 11/01/16, tubular adenoma of rectal stump and anal verge, Dr Ted Ceballos tubular adenoma of rectal stump tubular adenoma anal verge Surgical History Abnormal colonoscopy (Inactive 04/25/18) Dr Ceballos, flex sigmoidoscopy Anoscopy (07/09/17) Colectomy (~1993) LARGE BOWEL reanastomosis colonoscopy (12/12/16) Colonoscopy - MAC (11/01/17) EGD - MAC (11/01/17) EGD - MAC (04/25/18) EXCISION SEBACEOUS CYST (04/11/15) LEFT POSTAURICULAR REGION History of esophagogastroduodenoscopy (EGD) (Chronic 04/25/18) Dr Ceballos Sigmoidoscopy (06/01/19) 04/25/18- malignant polyp surveillance of rectal stump (12/12/16) Family History Mother Essential hypertension Father , 84 Heart disease CABG AGE 82 Prostate cancer Son FAP (familial adenomatous polyposis) Daughter Thyroid cancer Sister No problems noted. Brother No problems noted. Sister No problems noted. Sister No problems noted. Brother No problems noted. Social History Smoking/Tobacco Use Status: Never Alcohol Intake: current Alcohol Intake frequency: holidays/special occasions only Alcohol type: wine Drug use: Never Substance use type: marijuana Details: Per. pt. states that she does eat a 1/4 of a marijuana edible cookie each night before bed. Household members: spouse Housing: house Communication Needs: None Do you need help understanding health information?: Rarely Pets and animals: Yes Pets and animals: cat(s) Do you think of yourself as: straight/heterosexual Current gender identity: female What is your relationship status?: How often do you talk on the phone with friends or family?: decline to answer How often do you get together with friends or relatives?: twice per week How often do you attend confucianism or jewish services?: 1-3 times per year Do you belong to any clubs or organized social groups?: decline to answer Panel score (0-1 are the most socially isolated patients): 1 What type of physical activity do you participate in: walking Duration: 15-30 minutes/day Frequency: 5-6 times per week Destini/Orthodoxy: Oriental Orthodox Special destini needs: No Seatbelt use: always Helmet use: No 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 Meds Home Medications and Allergies Home Medications Medication Instructions Recorded Confirmed Type hydrochlorothiazide 25 mg tablet 25 mg PO DAILY #90 tab 02/04/19 10/05/19 Rx Sean-Citrate 600 tab PO DAILY 06/01/19 10/05/19 History vit D3-folic vivo-L6-D0-B12 1 tab PO DAILY 06/01/19 10/05/19 History diazepam [Valium] 2 mg PO ONCE PRN #14 tab 09/20/19 10/05/19 Rx psyllium husk [Metamucil] 0.5 tbsp PO TID 10/05/19 10/05/19 History Allergies Allergy/AdvReac Type Severity Reaction Status Date / Time morphine AdvReac Intermediate BAD DREAMS Verified 10/05/19 09:51 Exam Const General: cooperative and no acute distress Orientation: alert and oriented x3 HENMT Head: normocephalic and atraumatic Resp Effort & Inspection: normal respiratory effort Auscultation: clear to auscultation bilaterally Cardio Rate: regular rate Rhythm: regular rhythm Heart Sounds: no gallops, no murmurs and no rubs
[2019-10-07 06:30] VITALS: BP 131/81; PULSE 82; RESP 18; TEMP 36.7; O2SAT 99
--- NOTE | 2019-10-07 06:40 | W.PM.OP ---
Date of service: 10/07/19 Operative Note Operative Note DATE OF PROCEDURE: 10/07/19 PRE-OP DIAGNOSIS: Rectal Cancer POST-OP DIAGNOSIS: same PROCEDURE: Subclavian vein port-a-cath placement SURGEON: Marlene Herman ANESTHESIA: GETA (ASA / ) PATHOLOGY: none sent COMPLICATIONS: None Patient was transported to: same day Patient's condition: stable Indications: Jillian is here today to have a Port placed for chemotherapy. Jillian has familial adenomatous polyposis and was diagnosed with rectal cancer in 1993 she underwent a total proctocolectomy with IPAA. At that time she did not receive postoperative chemotherapy. She had been getting regular surveillance of her rectum and ileal rectal anastomosis and last year I found some dysplasia in some of my biopsy. She was referred back to [facility] where they did more extensive biopsies and found that she unfortunately had adenocarcinoma. She underwent proctectomy with abdominoperineal pull-through myocutaneous flap on July of last year. The adenocarcinoma was noted in note in the ileal anal anastomosis and it extended through the muscularis propria into the jorje-colorectal tissue. She will be starting chemotherapy and we were asked to place a port for that. Procedure Description: After informed consent was obtained the patient was taken to the operating room and placed in supine position. The patient was placed under deep sedation and once comfortable the right and left chest were prepped and draped in a sterile surgical fashion. At this point a timeout was done. The patient's name, date of , procedure to be done, potential complications, DVT prophylaxis, antibiotic given were all reviewed. Fire risk was assessed. Next 2% lidocaine mixed with half percent Marcaine with epi was injected around the clavicle on the left side as well as in the dermis on the chest wall at the site of the pocket. A power port kit was opened and using the large 18-gauge needle the subclavian vein was found and venous blood was easily aspirated. The syringe was removed and the guidewire was placed without any difficulty into the subclavian vein. The needle was removed. Fluoroscopy was then done which confirmed the placement of the guidewire. A small incision was made in the skin were the guidewire entered. An incision was made in the left upper chest with a 15 blade. Using cautery a pocket was created for the port. Using the tunneler the catheter was tunneled from the newly created pocket to the guidewire. The dilator and sheath were then placed over the guidewire into the subclavian vein. The dilator and guidewire were removed. The catheter was then advanced through the sheath into the subclavian vein. While holding the catheter in place at the skin the sheath was removed. Fluoroscopy was then used again and the catheter was noted to be within the atrium and so it was pulled up until it was just above the atrium. The catheter was then cut to the right length and attached to the port. The port was placed into the pocket and fit snugly. Blood was easily aspirated through the port. The port was flushed with normal saline followed by Heparin. The skin was closed using 4-0 Vicryl. The skin was cleaned and dried and skin affix was applied to the port site as well as to the small stab incision underneath the clavicle. The patient was woken up and taken back to same day surgery in stable condition. Sponge, instrument, and needle counts were correct at the end of the case. A stat chest x-ray was ordered and done in same-day surgery it was read by me and it looked good good positioning of the catheter and no pneumothorax.
--- NOTE | 2019-10-07 06:42 | W.PM.DSUDISC ---
Discharge Plan Disposition Patient Disposition: HOME Condition: Good Discharge Details Reason For Visit: Mediport placement Attending Provider: Marlene Herman Primary Care Provider: David Isabel Home Meds and New Rx's Prescriptions: Continued hydrochlorothiazide 25 mg tablet 25 mg PO DAILY Qty: 90 RF: 3 Metamucil 3.4 gram/5.4 gram Powder 0.5 tbsp PO TID RF: 0 Sean-Citrate 250-100 mg-unit Tablet 600 tab PO DAILY RF: 0 vit D3-folic hklc-A4-W6-B12 2,000-800-0.32 unit-mcg-mg Tablet 1 tab PO DAILY RF: 0 diazepam [Valium] 2 mg tablet 2 mg PO ONCE PRN (Reason: muscle spasm) Qty: 14 RF: 0 Discharge Instructions Instructions: Implanted Venous Access Port (GEN), How to Care for Your Implanted Venous Access Port (GEN) Additional Instructions: Activity at Home after surgery: As tolerated Be carefull not to keep your arm above your head for long periods as this may kink the catheter and get it to clot Diet, Nutrition, & wound healing: As tolerated Pain Medications: 1. Alternate Tylenol 650 mg and Ibuprofen 600 mg every 3 hours Other: 1. You may shower daily. Do not scrub the incisions 2. Do not soak the incisions for 1 week 3. You may alternate ice and heat as needed for pain and swelling Wound Care: 1. Keep the incisions clean and dry Please call our office if you develop: 1. Fevers >101.5 2. Nausea or Vomiting 3. Worsening pain 4. Redness and thick discharge from the wounds If after hours please call the Hospital at and ask to speak to the on-call surgeon Activity:: Activity as Tolerated Diet:: As Tolerated Discharge Orders Discharge Orders: Discharge Order (Routine); Ordered 10/07/19 Ordered By: Marlene Herman DS: Diagnosis Discharge Diagnosis (1) Rectal adenocarcinoma: Status: Acute
[2019-10-07] MEDS: Lactated Ringers 1,000 ML 80 ML IV (06:58)
[2019-10-07] MEDS: ceFAZolin 2 GM/50 ML BAG IVPB (07:31)
[2019-10-07] MEDS: Lidocaine 2% Multi-Dose 50 ML VIAL (08:05)
[2019-10-07] MEDS: Heparin 500 UNITS/5 ML SYRINGE (08:06)
--- NOTE | 2019-10-07 08:25 | DI.RAD_ITS ---
EXAM: XR PORTABLE CHEST AP POST LINE INDICATION: port placement. COMPARISON: XR CHEST 2V PA LATERAL from 02/05/2019 TECHNIQUE: 2D digital imaging was performed. FINDINGS: A port has been placed which overlies the left chest. The tip lies in the superior vena cava. The l ungs appear clear. There is no pneumothorax. IMPRESSION: Satisfactory port placement.
--- NOTE | 2019-10-07 08:38 | DI.RAD_ITS ---
EXAM: RF LINE PLACEMENT OR CLINICAL HISTORY: rectal adenocarcinoma. TECHNIQUE: 2D and realtime digital imaging was performed. COMPARISON: No exams were available for comparison FINDINGS: Fluoroscopy was provided for Dr. Herman for guidance while placing a port. Hard copy images show p lacement of a catheter via the left subclavian. The tip projects in the lower SVC. Please see proced ure note for details. FLUORO time: 14.6 seconds
[2019-10-07 08:55] VITALS: BP 109/65; PULSE 72; RESP 18; TEMP 36.8; O2SAT 99
== END 2019-10-07 09:15 | disposition home or self-care (01) ==
PROVIDERS: PCP Family Medicine; Visit Provider Surgery
PROC: (CPT 36561; principal; 2019-10-07 07:30)
DX: C20 Malignant neoplasm of rectum (principal); Z45.2 Encounter for adjustment and management of vascular access device
CPT/HCPCS: 36561; 77001; 71045; NC; C1788; J0690; J2250

== ENCOUNTER 2019-10-14 03:25 | Outpatient (CLI) | payer OTHER, SELFPAY ==
[2019-10-14 10:04] LABS: Abs Immature Grans 0.03 k/cumm (0.0-0.09); Absolute Lymphocyte Count 0.95 k/cumm (1.2-3.4); Absolute Monocyte Count 0.81 k/cumm (0.11-0.7); Basophils % 0.4; Eosinophils % 0.9; HCT 37.6 % (36.0-46.0); HGB 12.1 g/dL (12.0-15.5); Immature Grans % 0.3 %; Lymphocytes % 8.4; Mean Corp. HGB Concentration 32.2 g/dL (32.0-36.0); Mean Corpuscular Hemoglobin 25.4 pg (27.0-33.0); Mean Platelet Volume 9.7 fL (8.0-11.0); Monocytes % 7.2; Neutrophils % 82.8; Platelet Count 554 x1000/uL (130-400); RBC 4.76 m/cumm (4.00-5.20); RBC Distribution Width 14.3 % (11.7-14.6); White Blood Cell Count 11.28 k/cumm (4.4-10.8)
[2019-10-14 10:11] LABS: ALT 37 U/L (14-59); AST 27 U/L (15-37); Albumin 3.8 g/dL (3.4-5.0); Alkaline Phosphatase 298 U/L (46-116); BUN 33 mg/dL (7-18); Bilirubin, Total 0.3 mg/dL (0.2-1.0); CREATININE 1.03 mg/dL (0.55-1.02); Calcium 9.8 mg/dL (8.5-10.1); Chloride 95 mmol/L (98-107); Estimated GFR 54.85 (mL/min/1.73m2); Glucose 96 mg/dL (74-106); Potassium 3.9 mmol/L (3.5-5.1); Sodium 135 mmol/L (136-145); Total Protein 8.5 g/dL (6.4-8.2)
[2019-10-14 10:15] LABS: Absolute Basophil Count 0.05 k/cumm (0.0-0.2); Absolute Neutrophil Count 9.34 k/cumm (1.2-6.7)
[2019-10-15 09:32] LABS: CEA 2.8 ng/mL (See Note)
== END 2019-10-14 03:45 ==
PROVIDERS: PCP Family Medicine; Visit Provider Internal Medicine Hematology & Oncology
DX: C20 Malignant neoplasm of rectum (principal)
CPT/HCPCS: 36415; 80053; 81232; 82378; 85025

== ENCOUNTER 2019-10-19 02:52 | Emergency (ER) | payer OTHER, SELFPAY ==
[2019-10-19] VITALS (22 sets, daily range): BP systolic 100–163; BP diastolic 52–80; PULSE 87–97; RESP 18; TEMP 37.9; O2SAT 82–100
--- NOTE | 2019-10-19 02:59 | W.ED.GENAD ---
Discharge Plan Disposition Patient Disposition: HOME Condition: Stable Discharge Details Chief Complaint: GenMedical Clinical Impression: Dehydration, Nausea and vomiting Primary Care Provider: David Isabel ED Provider: Andres Rayo Home Meds and New Rx's Prescriptions: New ondansetron HCl 4 mg tablet 4 mg PO Q8H PRN (Reason: nausea and vomiting) Qty: 30 RF: 0 Continued hydrochlorothiazide 25 mg tablet 25 mg PO DAILY Qty: 90 RF: 3 Metamucil 3.4 gram/5.4 gram Powder 0.5 tbsp PO TID RF: 0 Sean-Citrate 250-100 mg-unit Tablet 600 tab PO DAILY RF: 0 vit D3-folic [id number]-[id number]-B12 2,000-800-0.32 unit-mcg-mg Tablet 1 tab PO DAILY RF: 0 diazepam [Valium] 2 mg tablet 2 mg PO ONCE PRN (Reason: muscle spasm) Qty: 14 RF: 0 Discharge Instructions Instructions: Chemo Induced Nausea and Vomiting (ED) Additional Instructions: follow up with your oncologist this week if you have fevers, severe abdominal pain or are unable to hold fluids down return to the emergency department Medical Decision Making 59 yo female with hx of htn, rectal cancer who had first roud of chemotherapy this past comes in with nausea and vomit since later in the day on . Denies fevers, abdominal pain, chest pain, recent travel. She arrives with dry mucous membranes, soft nontender abdomen, no rashes or other lesions. No headaches or falls. Suspect chemotherapy associated n/v. Will tx symptoms and give IVF and monitor. Given lack of abdominal tenderness doubt surgical pathology such as sbo. no fevers to suggest infectious etiology, her temperature here on arrival after wearing a heavy jacket and hat and having temporal scan was 37.9, will repeat once hat and coat are off labs show wbc of 18 which could be from stress response to the n/v vs cancer, repeat temp is 37.0. She has no abdominal tenderness and normal amount of stool in ostomy bag and she states I don't have a blockage as she has this before and doesn't feel how she does when she has sbo. She is tolerating PO and would like d/c. Will have her f/u with oncology and return precautions given Differential Diagnosis Differential Diagnosis: chemotherapy nausesa/vomit, gastroenteritis HPI General Mode of arrival: ambulatory. Date/Time Provider Initiated Documentation: 10/19/19 02:53. Limitations to Documentation: no limitations. Information obtained by: patient. History of Present Illness 59 year old F presents to the emergency department with the chief complaint of nausea and vomit, described as moderate, and it has been constant. No relieving factors improve symptom(s), No exacerbating factors reported . Related Data Home Medications Medication Instructions Recorded Confirmed hydrochlorothiazide 25 mg tablet 25 mg PO DAILY #90 tab 02/04/19 10/19/19 Sean-Citrate 600 tab PO DAILY 06/01/19 10/19/19 vit D3-folic [id number] 1 tab PO DAILY 06/01/19 10/19/19 diazepam [Valium] 2 mg PO ONCE PRN #14 tab 09/20/19 10/19/19 Metamucil 0.5 tbsp PO TID 10/05/19 10/19/19 ondansetron HCl 4 mg PO Q8H PRN #30 tab 10/19/19 Previous Rx's Medication Instructions Recorded hydrochlorothiazide 25 mg tablet 25 mg PO DAILY #90 tab 02/04/19 diazepam [Valium] 2 mg PO ONCE PRN #14 tab 09/20/19 ondansetron HCl 4 mg PO Q8H PRN #30 tab 10/19/19 Allergies Allergy/AdvReac Type Severity Reaction Status Date / Time morphine AdvReac Intermediate BAD DREAMS Verified 10/19/19 03:01 General GIULIANA: 3 Review of Systems All systems reviewed & are unremarkable except as noted in HPI and below Constitutional Constitutional: Denies chills, Denies fever(s) and Denies weakness Cardiovascular Cardiovascular: Denies chest pain and Denies dyspnea Respiratory Respiratory: Denies cough and Denies dyspnea Gastrointestinal Gastrointestinal: Denies abdominal pain Musculoskeletal Musculoskeletal: Denies joint swelling Neurologic Neurologic: Denies weakness [facility] Social History Smoking/Tobacco Use Status: Never Alcohol Intake: current Alcohol Intake frequency: holidays/special occasions only Alcohol type: wine Drug use: Daily Substance use type: marijuana Details: Per. pt. states that she does eat a 1/4 of a marijuana edible cookie each night before bed. Household members: spouse Housing: house Communication Needs: None Do you need help understanding health information?: Rarely Pets and animals: Yes Pets and animals: cat(s) Do you think of yourself as: straight/heterosexual Current gender identity: female What is your relationship status?: How often do you talk on the phone with friends or family?: decline to answer How often do you get together with friends or relatives?: twice per week How often do you attend sabianism or christianity services?: 1-3 times per year Do you belong to any clubs or organized social groups?: decline to answer Panel score (0-1 are the most socially isolated patients): 1 What type of physical activity do you participate in: walking Duration: 15-30 minutes/day Frequency: 5-6 times per week Destini/Baptist: Alevism Special destini needs: No Seatbelt use: always Helmet use: No Drive intox or ride w/intox 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 Exam Const General: no acute distress Orientation: alert HENMT Head: normal to inspection Ears: external ears normal General nose exam: external nose normal Mouth: moist mucous membranes Eyes General: appearance normal, both eyes and all related structures Neck Neck: normal visual inspection Resp Effort & Inspection: normal respiratory effort and able to speak in complete sentences Cardio Rate: regular rate GI Palpation: soft and nontender Skin General skin exam: no rashes or lesions noted Neuro General: alert and oriented x3 Extrem General: normal to inspection Psych Mental Status: mental status grossly normal
[2019-10-19] MEDS: Normal Saline 1,000 ML 1000 ML IV ×2 (03:15→04:04)
[2019-10-19] MEDS: Ondansetron 4 MG/2 ML VIAL IVP ×2 (03:21→04:28)
[2019-10-19 03:24] LABS: Abs Immature Grans 0.08 k/cumm (0.0-0.09); Absolute Lymphocyte Count 0.74 k/cumm (1.2-3.4); Absolute Monocyte Count 0.57 k/cumm (0.11-0.7); Basophils % 0.1; Eosinophils % 0.1; HCT 32.7 % (36.0-46.0); HGB 10.7 g/dL (12.0-15.5); Immature Grans % 0.4 %; Mean Corp. HGB Concentration 32.7 g/dL (32.0-36.0); Mean Corpuscular Hemoglobin 25.5 pg (27.0-33.0); Mean Corpuscular Volume 77.9 fL (80-95); Monocytes % 3.1; Neutrophils % 92.3; Platelet Count 294 x1000/uL (130-400); RBC Distribution Width 14.5 % (11.7-14.6); White Blood Cell Count 18.46 k/cumm (4.4-10.8)
[2019-10-19 03:25] LABS: Absolute Basophil Count 0.02 k/cumm (0.0-0.2); Absolute Eosinophil Count 0.02 k/cumm (0.0-0.7); Absolute Neutrophil Count 17.04 k/cumm (1.2-6.7)
[2019-10-19 03:32] LABS: ALT 49 U/L (14-59); AST 28 U/L (15-37); Albumin 2.9 g/dL (3.4-5.0); Alkaline Phosphatase 203 U/L (46-116); Anion Gap 7.6 mmol/L (3-11); BUN 16 mg/dL (7-18); CO2 28.4 mmol/L (21.0-32.0); CREATININE 0.96 mg/dL (0.55-1.02); Calcium 9.2 mg/dL (8.5-10.1); Chloride 95 mmol/L (98-107); Estimated GFR 59.49 (mL/min/1.73m2); Glucose 132 mg/dL (74-106); Lipase 130 U/L (73-393); Magnesium 1.8 mg/dL (1.8-2.4); Potassium 3.3 mmol/L (3.5-5.1); Sodium 131 mmol/L (136-145); Total Protein 7.4 g/dL (6.4-8.2)
== END 2019-10-19 05:35 | disposition home or self-care (01) ==
PROVIDERS: Emergency Provider Emergency Medicine; PCP Family Medicine
DX: R11.2 Nausea with vomiting, unspecified (principal); E86.0 Dehydration; C20 Malignant neoplasm of rectum; Z79.899 Other long term (current) drug therapy; Z93.3 Colostomy status; I10 Essential (primary) hypertension
CPT/HCPCS: 80053; 83690; 96361; 96374; 96375; 99284; 83735; 85025; J2405

== ENCOUNTER 2019-10-27 03:48 | Outpatient (CLI) | payer OTHER, SELFPAY ==
[2019-10-27 10:16] LABS: Absolute Eosinophil Count 0.05 k/cumm (0.0-0.7); Absolute Monocyte Count 0.68 k/cumm (0.11-0.7); Absolute Neutrophil Count 1.83 k/cumm (1.2-6.7); Eosinophils % 1.7; HCT 30.2 % (36.0-46.0); HGB 9.6 g/dL (12.0-15.5); Lymphocytes % 10.5; Mean Corp. HGB Concentration 31.8 g/dL (32.0-36.0); Mean Corpuscular Hemoglobin 25.3 pg (27.0-33.0); Mean Corpuscular Volume 79.5 fL (80-95); Mean Platelet Volume 9.3 fL (8.0-11.0); Monocytes % 23.8; Platelet Count 415 x1000/uL (130-400); RBC Distribution Width 15.4 % (11.7-14.6); White Blood Cell Count 2.86 k/cumm (4.4-10.8)
[2019-10-27 10:45] LABS: ALT 57 U/L (14-59); AST 22 U/L (15-37); Alkaline Phosphatase 204 U/L (46-116); BUN 18 mg/dL (7-18); Bilirubin, Total 0.3 mg/dL (0.2-1.0); CREATININE 0.75 mg/dL (0.55-1.02); Calcium 8.6 mg/dL (8.5-10.1); Chloride 102 mmol/L (98-107); Glucose 115 mg/dL (74-106); Potassium 3.6 mmol/L (3.5-5.1); Sodium 136 mmol/L (136-145); Total Protein 6.5 g/dL (6.4-8.2)
[2019-10-27 10:46] LABS: Anisocytosis 1+; Diff Comment RBC Morph Reviewed; Hypochromasia 1+
== END 2019-10-27 04:08 ==
PROVIDERS: PCP Family Medicine; Visit Provider Internal Medicine Hematology & Oncology
DX: C20 Malignant neoplasm of rectum (principal)
CPT/HCPCS: 36415; 80053; 81232; 82378; 85025

== ENCOUNTER 2019-11-10 02:16 | Outpatient (CLI) | payer OTHER, SELFPAY ==
[2019-11-10 09:39] LABS: Abs Immature Grans 0.06 k/cumm (0.0-0.09); HCT 37.1 % (36.0-46.0); HGB 11.9 g/dL (12.0-15.5); Mean Corp. HGB Concentration 32.1 g/dL (32.0-36.0); Mean Corpuscular Hemoglobin 25.1 pg (27.0-33.0); Mean Corpuscular Volume 78.1 fL (80-95); Mean Platelet Volume 8.6 fL (8.0-11.0); RBC 4.75 m/cumm (4.00-5.20); RBC Distribution Width 18.8 % (11.7-14.6)
[2019-11-10 09:56] LABS: ALT 37 U/L (14-59); AST 25 U/L (15-37); Albumin 3.4 g/dL (3.4-5.0); Alkaline Phosphatase 150 U/L (46-116); Anion Gap 9.4 mmol/L (3-11); BUN 30 mg/dL (7-18); Bilirubin, Total 0.7 mg/dL (0.2-1.0); CO2 23.6 mmol/L (21.0-32.0); CREATININE 1.07 mg/dL (0.55-1.02); Calcium 9.2 mg/dL (8.5-10.1); Chloride 97 mmol/L (98-107); Estimated GFR 52.49 (mL/min/1.73m2); Glucose 112 mg/dL (74-106); Potassium 4.9 mmol/L (3.5-5.1); Sodium 130 mmol/L (136-145)
[2019-11-10 10:04] LABS: Absolute Lymphocyte Count 0.66 k/cumm (1.2-3.4); Absolute Monocyte Count 1.65 k/cumm (0.11-0.7); Absolute Neutrophil Count 4.22 k/cumm (1.2-6.7); Diff Comment Manual Differential; Platelet Count 291 x1000/uL (130-400)
[2019-11-10 10:05] LABS: Anisocytosis 2+; Microcytosis 2+; Polychromasia Present
== END 2019-11-10 02:36 ==
PROVIDERS: PCP Family Medicine; Visit Provider Internal Medicine Hematology & Oncology
DX: C20 Malignant neoplasm of rectum (principal)
CPT/HCPCS: 36415; 80053; 85025

== ENCOUNTER 2019-11-11 18:29 | Emergency (ER) | payer OTHER, SELFPAY ==
[2019-11-11 18:41] VITALS: BP 101/61; PULSE 82; RESP 16; TEMP 36.7; O2SAT 99
--- NOTE | 2019-11-11 19:19 | ED.GENADUL_ITS ---
Discharge Plan Disposition Patient Disposition: HOME Condition: Stable Discharge Details Chief Complaint: GenMedical Clinical Impression: Bilateral knee pain Primary Care Provider: David Isabel ED Provider: Alisa Jeter Home Meds and New Rx's Prescriptions: Continued dexamethasone [Decadron] 4 mg tablet 4 mg PO DAILY RF: 0 (DME) ostomy supplies Misc See Rx Instructions .ROUTE .MEDSUPPLY Qty: 1 RF: 0 nystatin 100,000 unit/mL suspension 5 ml PO QID RF: 0 prochlorperazine maleate [Compazine] 10 mg tablet 10 mg PO QID PRNRF: 0 Metamucil 3.4 gram/5.4 gram Powder 0.5 tbsp PO TID RF: 0 vit D3-folic [id number] 2,000-800-0.32 unit-mcg-mg Tablet 1 tab PO DAILY RF: 0 diazepam [Valium] 2 mg tablet 2 mg PO ONCE PRN (Reason: muscle spasm) Qty: 14 RF: 0 Discharge Instructions Instructions: Knee Pain (ED) Additional Instructions: Follow up with primary care provider in 3-5 days. Return to ED sooner if any worsening or concerns. Increase oral fluids. Referrals: David Isabel [Primary Care Provider] - Medical Decision Making Patient is a 59-year-old female with a history of rectal adenocarcinoma, she is currently receiving chemotherapy and has a in place Port-A-Cath. She states that she was seen at [facility] today and had a liter of fluid and was given fluconazole IV piggyback and started on fluconazole for an oral thrush infection. She states they postpone her chemotherapy due to the thrush infection. She reports bilateral knee pain which began during the IV infusion of fluconazole. She denies any trauma, or falls. No swelling noted. She is concerned that this could be a reaction to the medication which I feel is unlikely at this time. TECHNIQUE: Imaging protocol: XR Right knee. Views: 3 views. COMPARISON: No relevant prior studies available. FINDINGS: Bones/joints: Normal.No acute fracture or dislocation. Soft tissues: 8 mm calcification in the posterior medial upper calf soft tissues. IMPRESSION: No acute findings. Thank you for allowing us to participate in the care of your patient. Dictated and Authenticated by: Magdalene Wren MD 11/11/2019 8:11 PM Eastern Time ([place] & [place]) TECHNIQUE: Imaging protocol: XR Left knee. Views: 3 views. COMPARISON: No relevant prior studies available. FINDINGS: Bones/joints: Normal. No acute fracture or dislocation. No joint effusion. Soft tissues: Normal. IMPRESSION: No acute findings. Thank you for allowing us to participate in the care of your patient. Dictated and Authenticated by: Magdalene Wren MD 11/11/2019 8:12 PM Eastern Time ( & [place]) X-ray results are noted above they are within normal limits except for a small calcification in the right calf which is chronic. CBC and CMP are within normal limits and largely unchanged from her previous labs. She has no leukocytosis or anything concerning with electrolytes at this time. At this time it is unclear what was causing her symptoms. Upon reevaluation patient states that her pain is improved and she is able to ambulate unassisted. She feels ready to be discharged home. Discussed strict return instructions with her and her family verbalized understanding. Differential diagnosis includes restless leg syndrome, hyponatremia, muscle cramps, medication reaction. HPI General Mode of arrival: ambulatory . Date/Time Provider Initiated Documentation: 11/11/19 18:37 . Limitations to Documentation: no limitations . Information obtained by: patient and family . HPI Narrative: Patient is a 59-year-old female with a history of rectal adenocarcinoma, she is currently receiving chemotherapy and has a in place Port-A-Cath. She states that she was seen at [facility] today and had a liter of fluid and was given fluconazole IV piggyback and started on fluconazole for an oral thrush infection. She states they postpone her chemotherapy due to the thrush infection. She reports arabella ateral knee pain which began during the IV infusion of fluconazole. She denies any trauma, or falls. No swelling noted. She is concerned that this could be a reaction to the medication which I feel is unlikely at this time. Related Data Home Medications Medication Instructions Recorded Confirmed vit D3-folic [id number] 1 tab PO DAILY 06/01/19 11/11/19 diazepam [Valium] 2 mg PO ONCE PRN #14 tab 09/20/19 11/11/19 Metamucil 0.5 tbsp PO TID 10/05/19 11/11/19 dexamethasone 4 mg tablet 4 mg PO DAILY 11/02/19 11/11/19 nystatin 100,000 unit/mL oral 5 ml PO QID ml 11/02/19 11/11/19 suspension ostomy supplies #1 each 11/02/19 11/11/19 prochlorperazine maleate 10 mg 10 mg PO QID PRN 11/02/19 11/11/19 tablet Previous Rx's Medication Instructions Recorded diazepam [Valium] 2 mg PO ONCE PRN #14 tab 09/20/19 Allergies Allergy/AdvReac Type Severity Reaction Status Date / Time morphine AdvReac Intermediate BAD DREAMS Verified 11/11/19 18:45 General Stated Complaint: GenMedical GIULIANA: 3 Review of Systems Narrative: Constitutional: Negative , alert and oriented, well groomed, normal body habitus, appears comfortable. Reports weakness. HEENT: Denies trauma, headaches, blurry vision, nasal discharge, sore throat, trouble swallowing. Chest: Denies chest pain, palpitations, irregular rhythm, hypertension. Respiratory: Denies Shortness of breath, cough, hemoptysis. GI: Denies abdominal pain, nausea, vomiting, diarrhea, constipation. : Denies dysuria, hematuria, flank pain, rectal bleeding. Extremities: Bilateral knee pain and aching to the right leg greater than the left. Neuro: Denies dizziness, blurry vision, weakness, syncope, headache or facial numbness. Hematologic: Denies easy bruising, intolerance to heat or cold, hair loss. [facility] Medical History Chronic gastritis (Acute 11/01/17) Essential (primary) hypertension (Acute) FAP (familial adenomatous polyposis) (Chronic) History of Helicobacter pylori infection (Chronic) 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 Rectal adenocarcinoma (Acute 04/25/18) Dr Ceballos Tubular adenoma (Acute) 11/23/15-DR. DALE 12/12/16-DR. DALE 11/01/16, tubular adenoma of rectal stump and anal verge, Dr Ted Ceballos tubular adenoma of rectal stump tubular adenoma anal verge Surgical History Abnormal colonoscopy (Inactive 04/25/18) Dr Ceballos, flex sigmoidoscopy Anoscopy (07/09/17) Colectomy (~1993) LARGE BOWEL reanastomosis colonoscopy (12/12/16) Colonoscopy - MAC (11/01/17) EGD - MAC (11/01/17) EGD - MAC (04/25/18) EXCISION SEBACEOUS CYST (04/11/15) LEFT POSTAURICULAR REGION H/O resection of rectum (Acute ~07/31/19) Proctectomy w/ abdominoperineal pullthrough and myocutaneous flap History of esophagogastroduodenoscopy (EGD) (Chronic 04/25/18) Dr Ceballos Sigmoidoscopy (06/01/19) 04/25/18- malignant polyp surveillance of rectal stump (12/12/16) Family History Mother Essential hypertension Father , 84 Heart disease CABG AGE 82 Prostate cancer Son FAP (familial adenomatous polyposis) Daughter Thyroid cancer Sister No problems noted. Brother No problems noted. Sister No problems noted. Sister No problems noted. Brother No problems noted. Social History Smoking/Tobacco Use Status: Never Alcohol Intake: former Drug use: Daily Substance use type: does not use Household members: spouse Housing: house Communication Needs: None Do you need help understanding health information?: Rarely Pets and animals: Yes Pets and animals: cat(s) Do you think of yourself as: straight/heterosexual Current gender identity: female What is your relationship status?: How often do you talk on the phone with friends or family?: decline to answer How often do you get together with friends or relatives?: twice per week How often do you attend mandaeism or christianity services?: 1-3 times per year Do you belong to any clubs or organized social groups?: decline to answer Panel score (0-1 are the most socially isolated patients): 1 What type of physical activity do you participate in: walking Duration: 15-30 minutes/day Frequency: 5-6 times per week Destini/Mormonism: Congregation Special destini needs: No Seatbelt use: always Helmet use: No Drive intox or ride w/intox driver material handler: No Do you feel safe at home: Yes Do you feel safe in your relationship?: Yes History History 2 Para 2 Hx # Term Pregnancies Multiple births Hx # Pregnancies Ectopic pregnancies AB induced Hx Number of Living Children AB spontaneous Exam Narrative Exam Narrative: Constitutional: Allert and oriented x3. Appears stated age. Normal body habitus. Has an in place Port-A-Cath noted to the left anterior chest wall. Head: Normocephalic, no trauma. Eyes: Pupils PERRLA, Red reflex noted, EOM's intact. Eyelids symmetrical withour lesions, discharge, or swelling. ENT: Bilateral TM's WNL, External ear normal to inspection, no mastoid TTP, swelling, or erythema, Nasal turbinates WNL, no nasal discharge. Normal dentition, Posterior pharynx WNL, no exudate. Chest: RRR, Normal S1, S2, distal pulses intact. Resp: Lungs clear to auscultation bilaterally, no wheezes, rales, or rhonchi. Musculoskeletal: Bilateral subjective knee pain, no crepitus no deformity no swelling noted. Skin: No suspicious rashes or lesions. Capillary refill ?2 sec. Neurologic: Cranial nerves II-XII intact. Alert and oriented x 3. DTR's intact. Hematologic/Lymphatic: No ecchymosis, no lymphadenopathy. Course Vital Signs Vital signs: Vital Signs Temperature 36.7 C 11/11/19 18:41 Pulse 82 18 18:41 Respiratory Rate 16 11/11/19 18:41 Blood Pressure 101/61 11/11/19 18:41 Pulse Oximetry 99 11/11/19 18:41 Temperature 36.7 C 11/11/19 18:41 Temperature Source Tympanic 11/11/19 18:41 Pulse 82 11/11/19 18:41 Respiratory Rate 16 11/11/19 18:41 Respiratory Effort Non-Labored 11/11/19 18:44 Blood Pressure 101/61 20 18:41 Blood Pressure Position Sitting 11/11/19 18:41 Pulse Oximetry 99 11/11/19 18:41 Oxygen Delivery Method Room Air 11/11/19 18:41 Oxygen Flow Rate 0 11/11/19 18:41 Pain Level 5 11/11/19 18:41
[2019-11-11 20:08] LABS: Abs Immature Grans 0.17 k/cumm (0.0-0.09); HGB 10.6 g/dL (12.0-15.5); Mean Corp. HGB Concentration 32.1 g/dL (32.0-36.0); Mean Corpuscular Hemoglobin 24.8 pg (27.0-33.0); Mean Corpuscular Volume 77.3 fL (80-95); Mean Platelet Volume 8.8 fL (8.0-11.0); Platelet Count 221 x1000/uL (130-400); RBC 4.27 m/cumm (4.00-5.20); RBC Distribution Width 18.9 % (11.7-14.6); White Blood Cell Count 8.55 k/cumm (4.4-10.8)
--- NOTE | 2019-11-11 20:08 | DI.RAD_ITS ---
EXAM: XR KNEE LT 3V AP,LAT,KALEN CLINICAL HISTORY: pain TECHNIQUE: COMPARISON: XR KNEE RT 3V AP,LAT,KALEN from 11/11/2019 FINDINGS: Three views of the left knee and three views of the right knee were obtained. No significant bony or soft tissue abnormality seen. IMPRESSION:
[2019-11-11 20:09] LABS: ALT 43 U/L (14-59); AST 26 U/L (15-37); Albumin 2.7 g/dL (3.4-5.0); Alkaline Phosphatase 136 U/L (46-116); Anion Gap 11.8 mmol/L (3-11); BUN 17 mg/dL (7-18); Bilirubin, Total 0.7 mg/dL (0.2-1.0); CO2 21.2 mmol/L (21.0-32.0); CREATININE 1.13 mg/dL (0.55-1.02); Calcium 8.6 mg/dL (8.5-10.1); Chloride 99 mmol/L (98-107); Estimated GFR 49.28 (mL/min/1.73m2); Glucose 111 mg/dL (74-106); Potassium 3.7 mmol/L (3.5-5.1); Sodium 132 mmol/L (136-145); Total Protein 6.6 g/dL (6.4-8.2)
--- NOTE | 2019-11-11 20:11 | DI.VRAD_ITS ---
PROCEDURE INFORMATION: Exam: XR Right Knee Exam date and time: 11/11/2019 8:01 PM Age: 59 years old Clinical indication: Pain; Knee; Right TECHNIQUE: Imaging protocol: XR Right knee. Views: 3 views. COMPARISON: No relevant prior studies available. FINDINGS: Bones/joints: Normal.No acute fracture or dislocation. Soft tissues: 8 mm calcification in the posterior medial upper calf soft tissues. IMPRESSION: No acute findings. Dictated and Authenticated by: Magdalene Wren MD. Ordering:SUBHASH Cuellar MD
--- NOTE | 2019-11-11 20:12 | DI.VRAD_ITS ---
PROCEDURE INFORMATION: Exam: XR Left Knee Exam date and time: 11/11/2019 8:01 PM Age: 59 years old Clinical indication: Pain; Knee; Left TECHNIQUE: Imaging protocol: XR Left knee. Views: 3 views. COMPARISON: No relevant prior studies available. FINDINGS: Bones/joints: Normal. No acute fracture or dislocation. No joint effusion. Soft tissues: Normal. IMPRESSION: No acute findings. Dictated and Authenticated by: Magdalene Wren MD. Ordering:SUBHASH Cuellar MD
[2019-11-11 20:33] LABS: Absolute Neutrophil Count 4.87 k/cumm (1.2-6.7); Atypical Lymphocytes % 3
[2019-11-11 20:34] LABS: Absolute Eosinophil Count 0.09 k/cumm (0.0-0.7); Absolute Monocyte Count 2.39 k/cumm (0.11-0.7); Diff Comment Manual Differential; Microcytosis 1+; Polychromasia Present
[2019-11-11 20:47] VITALS: BP 105/56; PULSE 89; RESP 18; TEMP 36.6; O2SAT 98
== END 2019-11-11 20:54 | disposition home or self-care (01) ==
PROVIDERS: Emergency Provider Registered Nurse Emergency; PCP Family Medicine
DX: M25.561 Pain in right knee (principal); M25.562 Pain in left knee; C20 Malignant neoplasm of rectum; Z79.899 Other long term (current) drug therapy
CPT/HCPCS: 36415; 73562; 80053; 99283; 85025

== ENCOUNTER 2019-11-12 21:57 | Emergency (ER) | payer OTHER, SELFPAY ==
[2019-11-12 22:00] VITALS: BP 121/73; PULSE 104; RESP 20; TEMP 36.6; O2SAT 98
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
[2019-11-12] MEDS: diazePAM 10 MG/2 ML SYR 5 MG IVP (22:10)
[2019-11-12] MEDS: Normal Saline 1,000 ML 1000 ML IV (22:11)
[2019-11-12 22:19] LABS: Abs Immature Grans 0.71 k/cumm (0.0-0.09); HCT 37.7 % (36.0-46.0); Mean Corp. HGB Concentration 31.8 g/dL (32.0-36.0); Mean Corpuscular Hemoglobin 24.5 pg (27.0-33.0); Mean Corpuscular Volume 76.9 fL (80-95); Mean Platelet Volume 9.1 fL (8.0-11.0); Platelet Count 199 x1000/uL (130-400); RBC Distribution Width 19.5 % (11.7-14.6); White Blood Cell Count 12.62 k/cumm (4.4-10.8)
[2019-11-12 22:32] LABS: ALT 40 U/L (14-59); AST 24 U/L (15-37); Albumin 2.9 g/dL (3.4-5.0); Alkaline Phosphatase 180 U/L (46-116); Anion Gap 14.2 mmol/L (3-11); BUN 36 mg/dL (7-18); Bilirubin, Total 0.5 mg/dL (0.2-1.0); CO2 21.8 mmol/L (21.0-32.0); CREATININE 2.12 mg/dL (0.55-1.02); Calcium 9.5 mg/dL (8.5-10.1); Chloride 98 mmol/L (98-107); Estimated GFR 23.84 (mL/min/1.73m2); Glucose 132 mg/dL (74-106); Lipase 187 U/L (73-393); Potassium 3.8 mmol/L (3.5-5.1); Sodium 134 mmol/L (136-145); Total Protein 7.9 g/dL (6.4-8.2)
--- NOTE | 2019-11-12 22:40 | DI.RAD_ITS ---
EXAM: XR ABD FLAT UPRIGHT PA CHEST CLINICAL HISTORY: suspect SBO, ABD PAIN, H/O COLON CA COMPARISON: XR PORTABLE CHEST AP POST LINE from 10/07/2019 CT ABDOMEN PELVIS WO from 11/12/2019 FINDINGS: PA view of the chest and three views of the abdomen were obtained. There is a left subclavian centra l venous indwelling catheter, the tip of which lies in superior portion of superior vena cava. Lungs are clear. Cardiac size within normal limits. No pleural effusion on this frontal film. Radiographs of the abdomen show multiple markedly dilated loops of small bowel. Findings are consist ent with small bowel obstruction as noted today's CT examination. Please see CT report.
[2019-11-12 22:49] LABS: Absolute Eosinophil Count 0.13 k/cumm (0.0-0.7); Absolute Lymphocyte Count 0.38 k/cumm (1.2-3.4); Absolute Monocyte Count 1.51 k/cumm (0.11-0.7); Absolute Neutrophil Count 10.35 k/cumm (1.2-6.7)
[2019-11-12 22:50] LABS: Diff Comment Manual Differential
[2019-11-12 22:51] LABS: Hypochromasia 1+; Microcytosis 2+
[2019-11-12] MEDS: Ondansetron 4 MG/2 ML VIAL IVP (22:55)
--- NOTE | 2019-11-12 23:28 | DI.VRAD_ITS ---
PROCEDURE INFORMATION: Exam: XR Complete Acute Abdomen Series Exam date and time: 11/12/2019 10:30 PM Age: 59 years old Clinical indication: Patient HX: Suspected sbo, HX of cancer. TECHNIQUE: Imaging protocol: XR complete acute abdomen series, including 2 or more views of the abdomen and a single view chest. COMPARISON: CR XR PORTABLE CHEST AP POST LINE 10/07/2019 8:25 AM FINDINGS: Tubes, catheters and devices: Left subclavian central venous catheter remains in place with its tip near the confluence of the brachiocephalic veins in the superior vena cava Lungs: Normal. No consolidation. Pleural space: Normal. No pneumothorax. Heart/Mediastinum: Normal. No cardiomegaly. Gastrointestinal tract: Multiple small bowel segments show gaseous distension and moderate to marked dilatation in the left upper quadrant and central abdomen with numerous associated air-fluid levels. Little gas is visible in the distal small bowel and colonic segments with a small amount of stool visible in the region of the rectum. Possible ostomy site seen as circular opacity in the left lower quadrant. Intraperitoneal space: Linear lucency beneath the left hemidiaphragm is concerning for possible pneumoperitoneum and could relate to perforation. Bones/joints: No acute osseous lesions are detected. Soft tissues: Normal. IMPRESSION: 1. Abnormal bowel gas pattern suggesting small bowel obstruction. 2. Possible pneumoperitoneum seen as minimal left-sided subdiaphragmatic lucency and concerning for perforation. Dictated and Authenticated by: Patel Donovan MD. Ordering:ALISIA Domingo MD
--- NOTE | 2019-11-12 23:45 | DI.CT_ITS ---
EXAM: CT ABDOMEN PELVIS WO CLINICAL HISTORY: abdominal pain/obstruction/? free air, h/o ca CT ABDOMEN PELVIS W from 09/20/2019 FINDINGS: CT examination of the abdomen and pelvis was performed without contrast administration. Images obtained through the lung bases are unremarkable. The liver and spleen appear normal as does the pancreas. Gallbladder nonvisualized, no biliary dilatation. Adrenals and kidneys are unremarkab le, no evidence of urinary tract calcification or obstruction. Abdominal aorta is of normal diameter . No significant upper abdominal adenopathy identified. There is marked gastric distention and distention of small-bowel to a level proximal to the ostomy s ite in the left mid abdomen. Findings are consistent with small bowel obstruction. Increased small bowel distention in comparison with prior CT of 09/20/2019. There is an approximately 12 cm in diameter, irregular fluid collection of the pelvis with apparent t hickened wall which contains fluid and tiny quantities of gas, findings suspicious for abscess format ion. Mildly increased prominence of pelvic soft tissue masses consistent with metastatic disease als o noted, grossly unchanged from 09/20. IMPRESSION: 1. Small-bowel obstruction at a level just proximal to the ostomy site. 2. Fluid and gas collection in the pelvis suggesting abscess, please see above discussion.
[2019-11-13 00:11] VITALS: BP 121/73; PULSE 84; RESP 16; TEMP 36.6; O2SAT 98
[2019-11-13] MEDS: HYDROmorphone 2 MG/ML VIAL 1 MG IVP ×2 (00:15→02:31)
[2019-11-13 00:54] VITALS: BP 115/72; PULSE 92; RESP 18; TEMP 37; O2SAT 98
--- NOTE | 2019-11-13 00:54 | DI.VRAD_ITS ---
PROCEDURE INFORMATION: Exam: CT Abdomen And Pelvis Without Contrast Exam date and time: 11/12/2019 11:36 PM Age: 59 years old Clinical indication: Generalized; Prior surgery; Surgery date: 6+ months; Patient HX: Abdominal pain, obstruction, ? free air TECHNIQUE: Imaging protocol: Computed tomography of the abdomen and pelvis without contrast. Radiation optimization: All CT scans at this facility use at least one of these dose optimization techniques: automated exposure control; mA and/or kV adjustment per patient size (includes targeted exams where dose is matched to clinical indication); or iterative reconstruction. COMPARISON: CR XR ABD FLAT UPRIGHT PA CHEST 11/12/2019 10:30 PM and enhanced abdominopelvic CT from 20 September 2019. FINDINGS: Liver: Hypoenhancing lesion seen along the posterior dome of the right lobe of the liver on the comparison CT from 20 September 2019 is not clearly visible on this noncontrast examination and no new focal liver lesions are detected. Gallbladder and bile ducts: Normal. No calcified stones. No ductal dilation. Pancreas: Normal. No ductal dilation. Spleen: Normal. No splenomegaly. Adrenals: Normal. No mass. Kidneys and ureters: No new renal mass or hydronephrosis. Stomach and bowel: There is increased distention of the fluid-filled stomach and multiple segments of fluid-filled small bowel now show increased dilatation with numerous associated air-fluid levels in the left upper quadrant and central abdomen and pelvis. There has been previous proctocolectomy and there is a suspected transition zone between the markedly dilated small bowel segments and the most distal portion of the small bowel near the ostomy site (see image 58, series 2). Appendix: No evidence of appendicitis. Intraperitoneal space: An irregular enlarging intraperitoneal fluid collection which contains a few tiny gas bubbles along its non dependent margins is seen within the pelvis centrally and posteriorly concerning for an enlarging abscess and measures over 11 cm in maximal AP dimension (see image 69, series 2). Vasculature: Unremarkable. No abdominal aortic aneurysm. Lymph nodes: Multiple nodular densities seen in the central abdomen and pelvis along the root of the mesentery are concerning for possible metastatic disease. Bladder: Unremarkable as visualized. Reproductive: Unchanged. Bones/joints: No new bony lesions are detected. Soft tissues: Irregular hyperdense soft tissue seen in the region of the right ischiorectal fossa is concerning for possible recurrent tumor. IMPRESSION: 1. Grossly abnormal examination demonstrating a worsening mechanical small bowel obstruction with probable transition zone near the ostomy site. 2. An irregular enlarging intraperitoneal fluid collection containing a few tiny gas bubbles is concerning for enlarging abscess and multiple sites worrisome for recurrent tumor are also seen within the abdomen and pelvis as detailed above. No gross pneumoperitoneum is identified.THIS REPORT CONTAINS FINDINGS THAT MAY BE CRITICAL TO PATIENT CARE. The findings were verbally communicated via telephone conference with STEPHANIE STEPHENS at 12:53 AM EDT on 11/13/2019. The findings were acknowledged and understood. Dictated and Authenticated by: Patel Donovan MD. Ordering:MILDRED Sanchez MD
== END 2019-11-13 02:25 | disposition short-term general hospital (02) ==
PROVIDERS: Emergency Provider Student in an Organized Health Care Education/Training Program; PCP Family Medicine
DX: K56.609 Unspecified intestinal obstruction, unspecified as to partial versus complete obstruction (principal); Z90.49 Acquired absence of other specified parts of digestive tract; Z93.3 Colostomy status; R11.2 Nausea with vomiting, unspecified; C18.9 Malignant neoplasm of colon, unspecified
CPT/HCPCS: 80048; 80053; 83690; 99285; 74022; 74176; 85025; J2405; J3360

== ENCOUNTER 2019-11-16 02:57 | Outpatient (CLI) | payer OTHER, SELFPAY ==
[2019-11-16 10:11] LABS: HCT 36.5 % (36.0-46.0); HGB 11.8 g/dL (12.0-15.5); Mean Corp. HGB Concentration 32.3 g/dL (32.0-36.0); Mean Corpuscular Hemoglobin 25.1 pg (27.0-33.0); Mean Corpuscular Volume 77.5 fL (80-95); Mean Platelet Volume 8.7 fL (8.0-11.0); Platelet Count 395 x1000/uL (130-400); RBC 4.71 m/cumm (4.00-5.20); RBC Distribution Width 19.5 % (11.7-14.6); White Blood Cell Count 11.97 k/cumm (4.4-10.8)
[2019-11-16 10:26] LABS: ALT 42 U/L (14-59); AST 38 U/L (15-37); Albumin 2.9 g/dL (3.4-5.0); Alkaline Phosphatase 371 U/L (46-116); Anion Gap 12.2 mmol/L (3-11); BUN 26 mg/dL (7-18); Bilirubin, Total 0.2 mg/dL (0.2-1.0); CO2 24.8 mmol/L (21.0-32.0); CREATININE 1.01 mg/dL (0.55-1.02); Calcium 9.8 mg/dL (8.5-10.1); Chloride 95 mmol/L (98-107); Glucose 107 mg/dL (74-106); Potassium 5.3 mmol/L (3.5-5.1); Sodium 132 mmol/L (136-145); Total Protein 8.6 g/dL (6.4-8.2)
[2019-11-16 10:45] LABS: Absolute Eosinophil Count 0.24 k/cumm (0.0-0.7); Absolute Lymphocyte Count 0.96 k/cumm (1.2-3.4); Absolute Monocyte Count 0.96 k/cumm (0.11-0.7); Absolute Neutrophil Count 9.58 k/cumm (1.2-6.7)
[2019-11-16 10:46] LABS: Anisocytosis 1+; Diff Comment Manual Differential; Hypochromasia 1+; Microcytosis 1+
[2019-11-17 09:42] LABS: CEA 2.5 ng/mL (See Note)
== END 2019-11-16 03:17 ==
PROVIDERS: PCP Family Medicine; Visit Provider Internal Medicine Hematology & Oncology
DX: C20 Malignant neoplasm of rectum (principal)
CPT/HCPCS: 36415; 80053; 82378; 85025

== ENCOUNTER 2019-11-20 16:12 | Emergency (ER) | payer OTHER, SELFPAY ==
[2019-11-20] VITALS (51 sets, daily range): BP systolic 97–144; BP diastolic 55–92; PULSE 82–115; RESP 14–30; TEMP 36.3–37; O2SAT 97–100
--- NOTE | 2019-11-20 16:30 | DI.RAD_ITS ---
EXAM: <XR PORTABLE CHEST AP> CLINICAL HISTORY: <sHORTNESS OF BREATH> TECHNIQUE: COMPARISON: XR ABD FLAT UPRIGHT PA CHEST from 11/12/2019 CT CHEST PE CTA from 11/20/2019 FINDINGS: The heart is not enlarged. There is a left Port-A-Cath the tip of which appears to lie near the junc tion of brachiocephalic veins and SVC. The lungs are clear. No pleural effusion identified on this frontal film. IMPRESSION: No evidence of acute process.
[2019-11-20 16:42] LABS: Abs Immature Grans 0.28 k/cumm (0.0-0.09); Absolute Basophil Count 0.01 k/cumm (0.0-0.2); Absolute Eosinophil Count 0.08 k/cumm (0.0-0.7); Absolute Lymphocyte Count 1.19 k/cumm (1.2-3.4); Absolute Monocyte Count 1.05 k/cumm (0.11-0.7); Absolute Neutrophil Count 11.41 k/cumm (1.2-6.7); Basophils % 0.1; Eosinophils % 0.6; HCT 38.9 % (36.0-46.0); HGB 12.9 g/dL (12.0-15.5); Lymphocytes % 8.5; Mean Corp. HGB Concentration 33.2 g/dL (32.0-36.0); Mean Corpuscular Hemoglobin 24.9 pg (27.0-33.0); Mean Platelet Volume 8.8 fL (8.0-11.0); Monocytes % 7.5; Neutrophils % 81.3; Platelet Count 431 x1000/uL (130-400); RBC 5.19 m/cumm (4.00-5.20); RBC Distribution Width 19.6 % (11.7-14.6); White Blood Cell Count 14.04 k/cumm (4.4-10.8)
--- NOTE | 2019-11-20 16:43 | W.ED.GENAD ---
Discharge Plan Disposition Patient Disposition: HOME Condition: Improving Discharge Details Chief Complaint: SOB Clinical Impression: Dehydration, Acute hyponatremia, Breath, shortness Primary Care Provider: David Isabel ED Provider: Poonam Mendoza Home Meds and New Rx's Prescriptions: Continued (DME) ostomy supplies Misc See Rx Instructions .ROUTE .MEDSUPPLY Qty: 1 RF: 0 nystatin 100,000 unit/mL suspension 5 ml PO QID RF: 0 prochlorperazine maleate [Compazine] 10 mg tablet 10 mg PO QID PRNRF: 0 Metamucil 3.4 gram/5.4 gram Powder 0.5 tbsp PO TID RF: 0 vit D3-folic [id number] 2,000-800-0.32 unit-mcg-mg Tablet 1 tab PO DAILY RF: 0 fluconazole 100 mg tablet 200 mg PO DAILY RF: 0 Discharge Instructions Instructions: Dehydration (ED), Hyponatremia (ED), Dyspnea (ED) Additional Instructions: Please encourage water intake. Please drink the Gatorade that your is by for you. You will need to have your blood work repeated on Saturday. Please call your primary care provider Saturday morning to discuss having this completed at their clinic versus at the hospital and regarding close follow-up. Your sodium was quite low today and has been started to be replenished while here. At this time, there is concern that you have been exposed and may have symptoms of COVID-19. A sample has been taken, it could take 7 days to get the result. The result be called to the emergency department, we will call you with any positive results. It is very important that you self-quarantine and stay at home for the next 14 days. Please see attached information on quarantine and helping prevent the spread of this to family and the community. Encourage water intake. You may use Tylenol and/or Ibuprofen as needed for discomfort. Follow directions on label. If you develop difficulty breathing, shortness of breath, severe headaches, stiff neck, chest pain or other new/worsening symptoms please seek care urgently once again. Please CALL prior to coming back. Please contact your primary care with any questions/concerns and to discuss needed follow up. Stand Alone Forms: PENDING COVID-19 TESTING Referrals: David Isabel [Primary Care Provider] - Medical Decision Making Patient is a pleasant 59-year-old female. She is currently receiving chemotherapy treatment for recurrent rectal cancer. Patient is status post colostomy placement. She states that her last round of chemotherapy was 3 weeks ago. She does believe that she receives a bone marrow stimulant and states that she receives this a few days after her chemotherapy dosing. She reports that over the past few days she has no shortness of breath and fatigue with exertion. She denies any chest pain. No cough. She is concerned that she may have been exposed to COVID. She reports that last Saturday she was seen by her oncologist and was later informed that the physician was COVID positive. Subsequently, patient did present to the emergency department and was transferred down to [facility] where an abscess was drained and a indwelling drain remains. States that throughout that time she was feeling otherwise well and that it was only after the time of discharge to the shortness of breath began. She denies having symptoms like this historically. She reports that with exertion and shortness of breath she can become slightly lightheaded. She denies any GI upset. Has been taking medications as prescribed. On exam, patient does appear slightly flushed. Heart rate is mildly tachycardic at 102. She is afebrile and oxygen is 99% on room air. Her lungs are clear, normal cardiac exam. Abdominal exam is benign. Her ostomy and drain appear to be putting out fluid with no acute abnormality noted. She does not have any abdominal tenderness at this time. She is no lower extremity edema, calves are soft and nontender bilaterally. Patient has had exposure potentially to COVID and shortness of breath is concerning, plan to test the patient. Also consider pulmonary embolism based on her recent history, known cancer diagnosis, tachycardia and history. I find ACS less likely as patient is not experiencing any chest pain and denies any cardiac history. EKG was obtained. This was reviewed by Dr. Roth. Patient is in a normal sinus rhythm with a rate of 89 with no acute ischemic changes noted. Patient does have nonspecific T wave changes, no previous EKG for comparison. Contacted by lab, patient has a critical sodium of123. Patient is denying any medications at home that could be offending agent. Patient is currently receiving IV normal saline. Chest x-ray reviewed by radiologist FINDINGS: Tubes, catheters and devices: Left infusion port present with the tip at the SVC. Lungs: Unremarkable. No consolidation. Pleural space: Unremarkable. No pleural effusion. No pneumothorax. Heart/Mediastinum: Unremarkable. No cardiomegaly. Bones/joints: Unremarkable. IMPRESSION: No acute abnormality identified. Labs significant for leukocytosis with a white count of 14. This point, I do not see any evidence of acute infection. This may be associated with her medications. She does have a neutrophil predominance. Patient's dimer is elevated at 1800. Plan for CT for PE protocol. Again, sodium was noted to be low at 126. Creatinine is elevated at 1.2. GFR 45. Her alk phos is elevated at 452 with patient has progressively been increasing with no acute change. No abnormalities noted in her urinalysis. FINDINGS: Pulmonary arteries: No pulmonary embolism identified. Aorta: Unremarkable. No aortic aneurysm. No aortic dissection. Lungs: 7 mm and 5 mm nodules left lower lobe. 2 mm pulmonary nodule right lower lobe. Pleural space: Unremarkable. No pneumothorax. No pleural effusion. Heart: Unremarkable. No cardiomegaly. No pericardial effusion. Lymph nodes: Unremarkable. No enlarged lymph nodes. Bones/joints: Unremarkable. No acute fracture. Soft tissues: Unremarkable. IMPRESSION: 1. No pulmonary embolism identified. 2. 7 mm and 5 mm nodules left lower lobe. 2 mm pulmonary nodule right lower lobe. Discussed these findings with the patient. She will follow-up regarding the nodules. Patient is feeling improved after fluid hydration. Pulse is 87. Blood pressure stable. Repeat BMP shows sodium of 126, this is up from 123. As patient is feeling significantly better and does show improvement in this, is tolerating oral intake well with no evidence of neurologic deficits, I feel that discharge is safe at this time. I do feel the patient is high risk for admission given her current crisis and her known comorbidities. Her creatinine is also improving from 1.2-1.17. I did encourage hydration, her has purchased Gatorade which is rich in electrolytes and sodium. She was given strict return precautions. I have asked that she follow-up with her primary care on Saturday and would like for her to have her electrolytes and kidney function rechecked again Saturday morning. Her Max testing is pending, I have asked that she quarantine and discussed this at length. She was given strict return precautions. All of their questions and concerns were addressed in agreement this plan. HPI General Mode of arrival: ambulatory. Date/Time Provider Initiated Documentation: 11/20/19 16:14. Limitations to Documentation: no limitations. Information obtained by: patient, family (spoke with at his car) and RN notes reviewed. History of Present Illness 59 year old F presents to the emergency department with the chief complaint of shortness of breath, described as moderate, Patient started experiencing this day(s) (3-4) and it has been constant. Immobilization improves symptom(s), Movement worsens symptoms (worse with ambulation/exertion) . Patient notes no other symptoms. and shortness of breath; denies chest pain, cough, fever/chills, headaches, loss of appetite, nausea/vomiting, rash, syncope and weakness. Patient did receive the following treatments prior to arrival, none Related Data Home Medications Medication Instructions Recorded Confirmed vit D3-folic [id number] 1 tab PO DAILY 06/01/19 11/12/19 Metamucil 0.5 tbsp PO TID 10/05/19 11/12/19 nystatin 100,000 unit/mL oral 5 ml PO QID ml 11/02/19 11/12/19 suspension ostomy supplies #1 each 11/02/19 11/12/19 prochlorperazine maleate 10 mg 10 mg PO QID PRN 11/02/19 11/12/19 tablet fluconazole 200 mg PO DAILY 11/12/19 11/12/19 Allergies Allergy/AdvReac Type Severity Reaction Status Date / Time morphine AdvReac Intermediate BAD DREAMS Verified 11/20/19 16:28 General Stated Complaint: SOB GIULIANA: 3 Review of Systems Constitutional Constitutional: Reports as per HPI, Denies chills, Denies fever(s), Denies headache(s), Denies lethargy and Denies poor appetite Eyes Eyes: Denies change in vision ENT Ears, Nose, Mouth, and Throat: Denies dizziness and Denies headache(s) Cardiovascular Cardiovascular: Reports as per HPI, Denies chest pain, Denies chest pain at rest, Denies chest pain with activity, Denies diaphoresis, Denies syncope, Denies pedal edema, Denies edema, Denies irregular heart rhythm, Denies leg edema, Reports lightheadedness (since resolved), Denies radiating jaw, neck or arm pain, Reports dyspnea, Reports dyspnea on exertion and Denies paroxysmal nocturnal dyspnea Respiratory Respiratory: Reports as per HPI, Denies chest congestion, Denies cough, Denies hemoptysis, Denies excessive phlegm production, Denies pain on inspiration, Denies pain with cough, Reports dyspnea, Reports dyspnea on exertion and Denies wheezing Gastrointestinal Gastrointestinal: Reports as per HPI, Denies abdominal pain, Denies diarrhea, Denies nausea and Denies vomiting Musculoskeletal Musculoskeletal: Reports as per HPI and Denies back pain Integumentary/Breasts Skin/Breast: Reports as per HPI and Denies rash Neurologic Neurologic: Reports as per HPI, Denies dizziness, Denies syncope and Denies headache(s) Allergic/Immunologic Allergic/Immunologic: Denies wheezing PFSH Family History Mother Essential hypertension Father , 84 Heart disease CABG AGE 82 Prostate cancer Son FAP (familial adenomatous polyposis) Daughter Thyroid cancer Sister No problems noted. Brother No problems noted. Sister No problems noted. Sister No problems noted. Brother No problems noted. Social History Smoking/Tobacco Use Status: Never Alcohol Intake: former Drug use: Daily Substance use type: does not use Household members: spouse Housing: house Communication Needs: None Do you need help understanding health information?: Rarely Pets and animals: Yes Pets and animals: cat(s) Do you think of yourself as: straight/heterosexual Current gender identity: female What is your relationship status?: How often do you talk on the phone with friends or family?: decline to answer How often do you get together with friends or relatives?: twice per week How often do you attend episcopal or adventist services?: 1-3 times per year Do you belong to any clubs or organized social groups?: decline to answer Panel score (0-1 are the most socially isolated patients): 1 What type of physical activity do you participate in: walking Duration: 15-30 minutes/day Frequency: 5-6 times per week Destini/Hoahaoism: [employer] Special destini needs: No Seatbelt use: always Helmet use: No Drive intox or ride 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 Exam Const General: cooperative, healthy appearing, comfortable, no acute distress and well developed Nutritional Appearance: average body habitus and well nourished Orientation: alert, awake and oriented x3 HENNE Head: normal to inspection Ears: hearing grossly normal bilaterally Mouth: moist mucous membranes Chest Chest: normal inspection of the chest, normal palpation of entire chest wall and no crepitus Resp Effort & Inspection: normal respiratory effort, able to speak in complete sentences and no respiratory distress Auscultation: clear to auscultation bilaterally, no rales, no rhonchi and no wheezes Cardio Rate: regular rate Rhythm: regular rhythm Heart Sounds: S1 normal and S2 normal GI Inspection: normal to inspection (drain in place RLQ with blood tinged discharge, ostomy present and draining), no edema and non-distended Palpation: soft, no hepatosplenomegaly, not firm, no guarding, not rigid and nontender Auscultation: normal bowel sounds Back/Spine/Pelvis Back: no CVA tenderness Thoracic/Lumbar Spine: thoracic and lumbar spine normal to inspection Skin General skin exam: no rashes or lesions noted Trauma: no lacerations or abrasions Neuro General: patient alert, patient awake and patient oriented x3 Cranial Nerves: CN's II-XI intact bilaterally Cognition: normal cognition Speech: speech normal Gait: normal gait Motor: muscle tone normal throughout, strength 5/5 throughout, no pronator drift, no movement abnormalities noted and no fasciculations Extrem General: normal to inspection, capillary refill normal, no pedal edema, no calf tenderness and normal gait Psych Appearance: grossly normal and well kempt Mental Status: mental status grossly normal Speech and Movement: speech and movement normal Course Vital Signs Vital signs: Vital Signs Temperature 36.3 C L 11/20/19 16:22 Pulse 102 H 11/20/19 16:22 Respiratory Rate 27 H 11/20/19 16:22 Blood Pressure 141/92 H 11/20/19 16:22 Pulse Oximetry 99 11/20/19 16:22 Temperature 36.3 C L 11/20/19 16:22 Temperature Source Skin 11/20/19 16:22 Pulse 102 H 11/20/19 16:22 Respiratory Rate 27 H 11/20/19 16:31 Respiratory Effort 11/20/19 16:31 Respiratory Depth Normal 11/20/19 16:31 Respiratory Pattern Tachypnea 11/20/19 16:31 Blood Pressure 141/92 H 11/20/19 16:22 Blood Pressure Position Supine 11/20/19 16:22 Pulse Oximetry 99 11/20/19 16:22 Oxygen Delivery Method Room Air 11/20/19 16:22 Oxygen Flow Rate 0 11/20/19 16:22 Pain Level 0 11/20/19 16:22 Lab/Test Results Lab/Test Results: Laboratory Tests Range/Units 11/20/19 16:31 WBC (4.4-10.8) k/cumm 14.04 H RBC (4.00-5.20) m/cumm 5.19 Hgb (12.0-15.5) g/dL 12.9 Hct (36.0-46.0) % 38.9 MCV (80-95) fL 75.0 L MCH (27.0-33.0) pg 24.9 L MCHC (32.0-36.0) g/dL 33.2 RDW (11.7-14.6) % 19.6 H Plt Count (130-400) x1000/uL 431 H MPV (8.0-11.0) fL 8.8 Immature Gran % % 2.0 Neutrophils % 81.3 Lymphocytes % 8.5 Monocytes % 7.5 Eosinophils % 0.6 Basophils % 0.1 Absolute Neutrophils (1.2-6.7) k/cumm 11.41 H Absolute Lymphocytes (1.2-3.4) k/cumm 1.19 L Absolute Monocytes (0.11-0.7) k/cumm 1.05 H Absolute Eosinophils (0.0-0.7) k/cumm 0.08 Absolute Basophils (0.0-0.2) k/cumm 0.01
[2019-11-20 16:59] LABS: ALT 51 U/L (14-59); AST 41 U/L (15-37); Albumin 3.4 g/dL (3.4-5.0); Alkaline Phosphatase 450 U/L (46-116); Anion Gap 11.7 mmol/L (3-11); BUN 43 mg/dL (7-18); Bilirubin, Total 0.4 mg/dL (0.2-1.0); CO2 25.3 mmol/L (21.0-32.0); Calcium 10.2 mg/dL (8.5-10.1); Chloride 86 mmol/L (98-107); Estimated GFR 45.98 (mL/min/1.73m2); Glucose 128 mg/dL (74-106); Potassium 4.6 mmol/L (3.5-5.1); Total Protein 8.9 g/dL (6.4-8.2)
[2019-11-20 17:00] LABS: Sodium 123 mmol/L (136-145); Troponin I < 0.05 ng/Ml (<0.06)
--- NOTE | 2019-11-20 17:01 | DI.VRAD_ITS ---
PROCEDURE INFORMATION: Exam: XR Chest, 1 View Exam date and time: 11/20/2019 4:46 PM Age: 59 years old Clinical indication: Shortness of breath; Prior surgery; Surgery date: 1-6 months TECHNIQUE: Imaging protocol: XR of the chest Views: 1 view. COMPARISON: CR XR ABD FLAT UPRIGHT PA CHEST 11/12/2019 10:30 PM FINDINGS: Tubes, catheters and devices: Left infusion port present with the tip at the SVC. Lungs: Unremarkable. No consolidation. Pleural space: Unremarkable. No pleural effusion. No pneumothorax. Heart/Mediastinum: Unremarkable. No cardiomegaly. Bones/joints: Unremarkable. IMPRESSION: No acute abnormality identified. Dictated and Authenticated by: Brad Morales MD. Ordering:ELDA Prajapati MD
[2019-11-20] MEDS: Normal Saline 1,000 ML 1000 ML IV ×2 (17:10→17:48)
[2019-11-20 17:19] LABS: D-Dimer 1837 ng/mlFEU (<500)
--- NOTE | 2019-11-20 17:30 | DI.CT_ITS ---
Pe chest cta: CLINICAL HISTORY Sob, elevated d dimer TECHNIQUE: Axial CT angiography was performed with multi-slice acquisition and multi-planar and/or [address] ABDOMEN PELVIS WO from 11/12/2019 FINDINGS: CT angiography of the chest was performed with a bolus infusion of 60 cc of Omnipaque 350. Note is m pablo an approximately 5 millimeter in diameter left lower lobe, pleural-based intrapulmonary nodule, u nchanged from prior CT of 04/30/2018. A 7 x 5 x 3 millimeter in diameter nodule is also noted, this was present on prior study and measured about 8 by 4 by 3 millimeters on the prior examination. Surv eillance with repeat CT recommended in 12 months. Otherwise lungs are clear. Tracheo bronchial tree appears intact. No evidence of pulmonary embolic disease. No significant abnormality of the thoracic aorta or major branch vessels. Left Port-A-Cath noted, the tip of which lies in the left brachiocephalic vein just proximal to the SVC. No pleural effusion seen. Images obtained through the upper abdomen show unremarkable appearance of visualized portions of live r, spleen, and left kidney. IMPRESSION: No evidence of acute pulmonary embolic disease or other acute process. Left lower lobe intrapulmonary nodules, repeat CT recommended in 12 months.
[2019-11-20] MEDS: Normal Saline 1,000 ML 150 ML IV (17:48)
[2019-11-20] MEDS: Omnipaque 350 MG/ML 100 ML BTL IJ (17:49)
--- NOTE | 2019-11-20 18:42 | DI.VRAD_ITS ---
PROCEDURE INFORMATION: Exam: CT Angiography Chest With Contrast Exam date and time: 11/20/2019 6:01 PM Age: 59 years old Clinical indication: Abnormal findings; Abnormal diagnostic tests; Elevated d-dimer; Shortness of breath; Prior surgery; Patient HX: SOB, elevated d dimer TECHNIQUE: Imaging protocol: Computed tomographic angiography of the chest with intravenous contrast. 3D rendering: MIP and/or 3D reconstructed images were created by the technologist. COMPARISON: CT Abdomen^CAP STAGING (Adult) 04/30/2018 9:41 AM FINDINGS: Pulmonary arteries: No pulmonary embolism identified. Aorta: Unremarkable. No aortic aneurysm. No aortic dissection. Lungs: 7 mm and 5 mm nodules left lower lobe. 2 mm pulmonary nodule right lower lobe. Pleural space: Unremarkable. No pneumothorax. No pleural effusion. Heart: Unremarkable. No cardiomegaly. No pericardial effusion. Lymph nodes: Unremarkable. No enlarged lymph nodes. Bones/joints: Unremarkable. No acute fracture. Soft tissues: Unremarkable. IMPRESSION: 1. No pulmonary embolism identified. 2. 7 mm and 5 mm nodules left lower lobe. 2 mm pulmonary nodule right lower lobe. Dictated and Authenticated by: Brad Morales MD. Ordering:YOANA Levin MD
[2019-11-20 20:05] LABS: Bilirubin Negative (Negative); Blood Negative (Negative); Clarity Clear (Clear); Glucose Negative (Negative); Ketones Negative (Negative); Leukocyte Esterase Negative (Negative); Nitrite Negative (Negative); Specific Gravity 1.015 (1.005-1.025); Urobilinogen 0.2 EU/dL (Up TO 0.2); pH 6.5 (5-8)
[2019-11-20 20:29] LABS: Anion Gap 9.5 mmol/L (3-11); BUN 34 mg/dL (7-18); CO2 25.5 mmol/L (21.0-32.0); CREATININE 1.17 mg/dL (0.55-1.02); Calcium 8.7 mg/dL (8.5-10.1); Chloride 91 mmol/L (98-107); Estimated GFR 47.35 (mL/min/1.73m2); Glucose 132 mg/dL (74-106); Potassium 3.5 mmol/L (3.5-5.1); Sodium 126 mmol/L (136-145)
== END 2019-11-20 20:51 | disposition home or self-care (01) ==
PROVIDERS: Emergency Medicine; Emergency Provider Physician Assistant; PCP Family Medicine
DX: E86.0 Dehydration (principal); E87.1 Hypo-osmolality and hyponatremia; R06.02 Shortness of breath; Z79.899 Other long term (current) drug therapy; C20 Malignant neoplasm of rectum; R79.1 Abnormal coagulation profile; R91.1 Solitary pulmonary nodule
CPT/HCPCS: 36415; 71275; 80048; 80053; 93005; 96360; 99285; 71045; 81003; 83735; 84484; 85025; 85379; 93010; J3490

== ENCOUNTER 2019-11-23 14:24 | Outpatient (CLI) | payer OTHER, SELFPAY ==
[2019-11-23 15:01] LABS: BUN 24 mg/dL (7-18); CO2 24.4 mmol/L (21.0-32.0); CREATININE 1.09 mg/dL (0.55-1.02); Calcium 9.2 mg/dL (8.5-10.1); Chloride 96 mmol/L (98-107); Estimated GFR 51.38 (mL/min/1.73m2); Glucose 127 mg/dL (74-106); Potassium 3.9 mmol/L (3.5-5.1); Sodium 132 mmol/L (136-145)
[2019-11-23 15:02] LABS: Anion Gap 11.6 mmol/L (3-11)
== END 2019-11-23 14:44 ==
PROVIDERS: PCP Family Medicine; Visit Provider Family Medicine
DX: E87.1 Hypo-osmolality and hyponatremia (principal)
CPT/HCPCS: 36415; 80048

== ENCOUNTER 2019-11-25 01:11 | Inpatient (IN) | payer OTHER, SELFPAY ==
[2019-11-25] VITALS (62 sets, daily range): BP systolic 106–144; BP diastolic 61–94; PULSE 76–125; RESP 14–31; TEMP 36.3–37.1; O2SAT 93–100
--- NOTE | 2019-11-25 01:32 | W.ED.GENAD ---
Discharge Plan Disposition Patient Disposition: [facility] INPATIENT Condition: Stable Discharge Details Chief Complaint: Abd Prob Clinical Impression: Partial small bowel obstruction Primary Care Provider: David Isabel ED Provider: Alo Roth Home Meds and New Rx's Prescriptions: Continued (DME) ostomy supplies Misc See Rx Instructions .ROUTE .MEDSUPPLY Qty: 1 RF: 0 prochlorperazine maleate [Compazine] 10 mg tablet 10 mg PO QID PRNRF: 0 Metamucil 3.4 gram/5.4 gram Powder 0.5 tbsp PO TID RF: 0 vit D3-folic [id number] 2,000-800-0.32 unit-mcg-mg Tablet 1 tab PO DAILY RF: 0 Medical Decision Making This is a 59-year-old female with a history of recurrent rectal cancer, status post total abdominal proctocolectomy. She presents tonight feeling as if she has become recurrently obstructed which she states often happens with some food types, which is accompanied by nausea and vomiting today. She did not have a fever. 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 She has not had a cough or fever, no travel outside of the local area. She does states she was exposed to 1 of her physicians who had a diagnosis of coronavirus for which she was swabbed on November 19, result is pending (patient states she hasn't seen this provider in 2 weeks). X-ray reveals focally dilated loops of gas-filled small bowel in the left abdomen. May reflect a focal ileus or early small bowel obstruction, please see formal report. The patient has chronic hyponatremia which is not significantly changed today. Her BUN is 23, creatinine 1.1. She has had an elevated white blood cell count (question secondary to Neupogen). Patient received fluids, magnesium supplementation, antiemetic, as well as anxiolytic. She had persistent mild abdominal discomfort, noted that there has been no further output into her ostomy bag. She has previously had concern for intra-abdominal abscess and was evaluated at [facility] with CT-guided drainage catheter placed on November 12 (she states this is scheduled to be removed this Saturday). Therefore, she is referred for CT imaging: Dilated loops of bowel are noted. Percutaneous drainage catheter noted with no evidence of persistent abscess. Case discussed with Dr. Solares who will see the patient in consultation. Regarding the patient's coronavirus status she has not seen the possible contact in 2 weeks, both nursing staff and Ms Mendoza recall the patient being swapped this past Saturday. Unclear the status of her test at this time per the lab. HPI General Mode of arrival: ambulatory. Date/Time Provider Initiated Documentation: 11/25/19 01:16. Limitations to Documentation: no limitations. Information obtained by: patient. History of Present Illness 59 year old F presents to the emergency department with the chief complaint of Abdominal bloating, similar to previous, feels obstructed, described as similar to prior episodes, Quality is described as dull, and is localized to the abdomen. Patient reports no radiation. Patient started experiencing this hour(s) and it has been constant. No relieving factors improve symptom(s), No exacerbating factors reported . Patient notes loss of appetite and nausea/vomiting; denies fever/chills. Patient did receive the following treatments prior to arrival, none Related Data Home Medications Medication Instructions Recorded Confirmed vit D3-folic [id number] 1 tab PO DAILY 06/01/19 11/12/19 Metamucil 0.5 tbsp PO TID 10/05/19 11/12/19 ostomy supplies #1 each 11/02/19 11/12/19 prochlorperazine maleate 10 mg 10 mg PO QID PRN 11/02/19 11/12/19 tablet Allergies Allergy/AdvReac Type Severity Reaction Status Date / Time morphine AdvReac Intermediate BAD DREAMS Verified 11/20/19 16:28 General Stated Complaint: Abd Prob GIULIANA: 3 Review of Systems Narrative: 6 systems reviewed and otherwise negative [facility] Medical History Chronic gastritis (Acute 11/01/17) Essential (primary) hypertension (Acute) FAP (familial adenomatous polyposis) (Chronic) History of Helicobacter pylori infection (Chronic) 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 Rectal adenocarcinoma (Acute 04/25/18) Dr Ceballos Tubular adenoma (Acute) 11/23/15-DR. DALE 12/12/16-DR. DALE 11/01/16, tubular adenoma of rectal stump and anal verge, Dr Ted Ceballos tubular adenoma of rectal stump tubular adenoma anal verge Family History Mother Essential hypertension Father , 84 Heart disease CABG AGE 82 Prostate cancer Son FAP (familial adenomatous polyposis) Daughter Thyroid cancer Sister No problems noted. Brother No problems noted. Sister No problems noted. Sister No problems noted. Brother No problems noted. Social History Smoking/Tobacco Use Status: Never Alcohol Intake: former Drug use: Daily Substance use type: does not use Details: Household members: spouse Housing: house Communication Needs: None Do you need help understanding health information?: Rarely Pets and animals: Yes Pets and animals: cat(s) Do you think of yourself as: straight/heterosexual Current gender identity: female What is your relationship status?: How often do you talk on the phone with friends or family?: decline to answer How often do you get together with friends or relatives?: twice per week How often do you attend catholic or quaker services?: 1-3 times per year Do you belong to any clubs or organized social groups?: decline to answer Panel score (0-1 are the most socially isolated patients): 1 What type of physical activity do you participate in: walking Duration: 15-30 minutes/day Frequency: 5-6 times per week Destini/Oriental Orthodox: Taoist Special destini needs: No Seatbelt use: always Helmet use: No Drive intox or ride w/intox non emergency services ambulance 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 Exam Narrative Exam Narrative: GEN: awake, alert, oriented 3. Pleasant, well groomed, interactive. HEAD: Normocephalic, atraumatic ENT: Mucous membranes dry, oropharynx unremarkable, External ear exam unremarkable EYES: PERRL, EOMI NECK: Full ROM, no CHRISTEL, no menigismus CHEST/RESP: Nontender, clear to auscultation bilateral, no wheeze/rhonchi/rales CARDIOVASCULAR: RRR, no murmur, rub blaine. 2+ Rad pulse bilateral ABDOMEN: Soft, ostomy with stool output, right lower quadrant abdominal drain present, mild diffuse tenderness, no mass. +Bowel sounds EXT: Full ROM, no edema, no rash Neuro: Grossly normal neurologic exam, conversant, interactive. Psych: Speech fluent, thoughts congruent, affect anxious Course Vital Signs Vital signs: Vital Signs Temperature 36.3 C L 11/25/19 01:18 Pulse 109 H 11/25/19 01:18 Respiratory Rate 31 H 11/25/19 01:18 Blood Pressure 137/94 H 11/25/19 01:18 Pulse Oximetry 100 11/25/19 01:18 Temperature 36.3 C L 11/25/19 01:18 Temperature Source Oral 11/25/19 01:18 Pulse 109 H 11/25/19 01:18 Respiratory Rate 31 H 11/25/19 01:18 Respiratory Effort 11/25/19 01:31 Blood Pressure 137/94 H 11/25/19 01:18 Blood Pressure Position Supine 11/25/19 01:18 Pulse Oximetry 100 11/25/19 01:18 Oxygen Delivery Method Room Air 11/25/19 01:18 Oxygen Flow Rate 0 11/25/19 01:18 Pain Level 10 11/25/19 01:18
[2019-11-25] MEDS: diazePAM 10 MG/2 ML SYR 5 MG IVP ×2 (01:40→05:12)
[2019-11-25] MEDS: Normal Saline 1,000 ML 125 ML IV (01:40)
[2019-11-25] MEDS: Ondansetron 4 MG/2 ML VIAL IVP (01:40)
[2019-11-25 01:57] LABS: Abs Immature Grans 0.09 k/cumm (0.0-0.09); Absolute Basophil Count 0.03 k/cumm (0.0-0.2); Absolute Lymphocyte Count 1.26 k/cumm (1.2-3.4); Absolute Monocyte Count 0.63 k/cumm (0.11-0.7); Basophils % 0.2; Eosinophils % 0.6; HCT 33.3 % (36.0-46.0); HGB 10.9 g/dL (12.0-15.5); Immature Grans % 0.5 %; Lymphocytes % 7.4; Mean Corp. HGB Concentration 32.7 g/dL (32.0-36.0); Mean Corpuscular Hemoglobin 25.5 pg (27.0-33.0); Mean Platelet Volume 9.3 fL (8.0-11.0); Monocytes % 3.7; Neutrophils % 87.6; RBC 4.27 m/cumm (4.00-5.20); RBC Distribution Width 20.3 % (11.7-14.6); White Blood Cell Count 17.03 k/cumm (4.4-10.8)
[2019-11-25 02:01] LABS: Absolute Neutrophil Count 14.92 k/cumm (1.2-6.7)
[2019-11-25 02:07] LABS: Anisocytosis 2+; Diff Comment RBC Morph Reviewed; Microcytosis 2+
[2019-11-25 02:08] LABS: Platelet Count 590 x1000/uL (130-400)
[2019-11-25 02:13] LABS: ALT 59 U/L (14-59); AST 62 U/L (15-37); Albumin 3.2 g/dL (3.4-5.0); Alkaline Phosphatase 394 U/L (46-116); Anion Gap 14.3 mmol/L (3-11); BUN 23 mg/dL (7-18); Bilirubin, Total 0.3 mg/dL (0.2-1.0); CO2 23.7 mmol/L (21.0-32.0); CREATININE 1.14 mg/dL (0.55-1.02); Calcium 10.3 mg/dL (8.5-10.1); Chloride 93 mmol/L (98-107); Estimated GFR 48.79 (mL/min/1.73m2); Glucose 115 mg/dL (74-106); Magnesium 1.7 mg/dL (1.8-2.4); Potassium 3.9 mmol/L (3.5-5.1); Sodium 131 mmol/L (136-145)
--- NOTE | 2019-11-25 02:15 | DI.RAD_ITS ---
EXAM: XR ABDOMEN FLAT UPRIGHT CLINICAL HISTORY: vomiting TECHNIQUE: 2D digital imaging was performed. COMPARISON: XR PORTABLE CHEST AP from 11/20/2019 CT CHEST PE CTA from 11/20/2019 FINDINGS: The visualized portions of the lung bases are clear. No free air is seen beneath the diaphragm. Th ere are dilated bowel loops seen greatest in the left upper quadrant. There is a drainage catheter s een in the pelvis. No urinary tract calculi or organomegaly is seen. IMPRESSION: Findings suspicious for a small bowel obstruction.
--- NOTE | 2019-11-25 02:19 | DI.VRAD_ITS ---
PROCEDURE INFORMATION: Exam: XR Abdomen, 2 Views Exam date and time: 11/25/2019 1:57 AM Age: 59 years old Clinical indication: Patient HX: Vomiting, patient HX of cancer TECHNIQUE: Imaging protocol: XR of the abdomen. Views: 2 Views. COMPARISON: CR XR ABD FLAT UPRIGHT PA CHEST 11/12/2019 10:30 PM FINDINGS: Tubes, catheters and devices: Pigtail catheter projects over the pelvis tip just to the left of midline Gastrointestinal tract: Focally dilated loops of gas-filled small bowel in the left abdomen may reflect a focal ileus or an early small bowel obstruction in the correct clinical setting. Intraperitoneal space: Normal. No free air. Bones/joints: Unremarkable for age. IMPRESSION: Focally dilated loops of gas-filled small bowel in the left abdomen may reflect a focal ileus or an early small bowel obstruction in the correct clinical setting. Dictated and Authenticated by: Laz Eckert MD. Ordering:ELDA Prajapati MD
[2019-11-25 02:20] LABS: Troponin I < 0.05 ng/Ml (<0.06)
[2019-11-25] MEDS: diazePAM 10 MG/2 ML SYR 2.5 MG IVP (02:38)
[2019-11-25] MEDS: MAGNESIUM SULFATE 1 GM/100 ML BAG IVPB (02:39)
[2019-11-25] MEDS: Normal Saline 500 ML IV (03:04)
--- NOTE | 2019-11-25 03:54 | NUR.NOTE ---
Nursing Note:Pt sleeping on stretcher, resp even and unlabored.
[2019-11-25] MEDS: Normal Saline 1,000 ML 150 ML IV ×2 (05:15→12:17)
[2019-11-25] MEDS: Omnipaque 350 MG/ML 100 ML BTL IJ (05:37)
[2019-11-25] MEDS: Normal Saline - Diluent 50 ML VIAL IV (05:37)
--- NOTE | 2019-11-25 05:47 | NUR.NOTE ---
Nursing Note: pt to CT
--- NOTE | 2019-11-25 06:03 | DI.CT_ITS ---
EXAM: CT ABDOMEN PELVIS W CLINICAL HISTORY: bowel obstruction, vomiting. TECHNIQUE: Imaging Protocol: Axial computed tomography images with coronal and sagittal reformatted images were created and reviewed CONTRAST MATERIAL: Intravenous: Omnipaque 350 Contrast volume:structured data in ml Oral: yes / no COMPARISON: CT ABDOMEN PELVIS W from 09/20/2019 XR ABD FLAT UPRIGHT PA CHEST from 11/12/2019 CT ABDOMEN PELVIS WO from 11/12/2019 CT CHEST PE CTA from 11/20/2019 XR ABDOMEN FLAT UPRIGHT from 11/25/2019 FINDINGS: ABDOMEN: Lung Bases: Mild patchy densities are seen in the medial left lung base, nonspecific.. Liver: Normal density. No measurable mass. Gallbladder and biliary tract: No radiodense calculus or dilation. Pancreas: Normal density, no abnormal calcifications or inflammatory process. Spleen: Normal. Kidneys: Normal size, contour and axis. No radiodense stones or obstructive uropathy. No masses seen. Adrenal glands: No masses seen. Abdominal Aorta: Abdominal portion non-dilated. PELVIS: Bladder: Symmetric distention, no gross wall thickening. Bowel: The patient is status post colonic resection. Ostomy is again noted centrally in the abdomen. The stomach and small bowel are dilated. There are a few decompressed loops of bowel distally. Th e findings are consistent with small bowel obstruction. There is no free air or free fluid. There i s a drainage catheter seen low in the pelvis. There is no residual fluid collection. There are nodu lar solid densities in the pelvis, unchanged, consistent with tumor.. Peritoneal cavity: No ascites, collection or mesenteric inflammatory response. Bones: Osteopenic. Reproductive organs: Within normal limits. Lymph nodes: Unremarkable. Impression: Findings consistent with small-bowel obstruction. Stable appearance of pelvic masses. Drainage cath eter without residual collection. S/p colectomy and ostomy. DATA REPOSITORY: All CT scans at this facility are submitted to the National Radiology Data Registry (NRDR) Dose Index Registry (DIR) with the [employer] (ACR). RADIATION OPTIMIZATION: All CT scans at this facility use at least one of these dose optimization te chniques: automated exposure control; mA and/or kV adjustment per patient size (includes targeted exa ms where dose is matched to clinical indication); or iterative reconstruction.
--- NOTE | 2019-11-25 06:25 | DI.VRAD_ITS ---
PROCEDURE INFORMATION: Exam: CT Abdomen And Pelvis With Contrast Exam date and time: 11/25/2019 5:51 AM Age: 59 years old Clinical indication: Abdominal pain; Generalized; Patient HX: Bowel obstruction , vomiting TECHNIQUE: Imaging protocol: Computed tomography of the abdomen and pelvis with intravenous contrast. Radiation optimization: All CT scans at this facility use at least one of these dose optimization techniques: automated exposure control; mA and/or kV adjustment per patient size (includes targeted exams where dose is matched to clinical indication); or iterative reconstruction. Contrast material: OMNIPAQUE 350; Contrast volume: 87 ml; Contrast route: IV; COMPARISON: CT ABDOMEN PELVIS W 09/20/2019 3:28 AM FINDINGS: Tubes, catheters and devices: Percutaneous drainage catheter noted in the pelvis with only a trace amount of fluid noted in the region of the distal coil. Liver: Normal. No mass. Gallbladder and bile ducts: Normal. No calcified stones. No ductal dilation. Pancreas: Normal. No ductal dilation. Spleen: Normal. No splenomegaly. Adrenals: Normal. No mass. Kidneys and ureters: Normal. No hydronephrosis. Stomach and bowel: Patient is status post colectomy with an ileostomy in the central abdomen. Dilated loops of proximal small bowel are noted measuring up to 3 cm with a collapsed appearance of distal small bowel loops. Findings are compatible with a small bowel obstruction. Consider adhesions a likely etiology. Appendix: No evidence of appendicitis. Intraperitoneal space: Unremarkable. No free air. No significant fluid collection. Vasculature: Unremarkable. No abdominal aortic aneurysm. Lymph nodes: Unremarkable. No enlarged lymph nodes. Bladder: Unremarkable as visualized. Reproductive: Unremarkable as visualized. Bones/joints: Unremarkable. No acute fracture. Soft tissues: Nonspecific postoperative changes in the pelvis include what appear to be fatty packing material IMPRESSION: 1. Small bowel obstruction. 2. Percutaneous drainage catheter noted in the pelvis with only a trace amount of fluid noted in the region of the distal coil. Dictated and Authenticated by: Laz Eckert MD. Ordering:ELDA Prajaapti MD
--- NOTE | 2019-11-25 11:50 | W.PM.HP.N ---
Date of service: 11/25/19 Time of Service: 10:00 Assessment and Plan Assessment and plan (1) Partial small bowel obstruction: Status: Acute Assessment and plan: A/P: Will admit patient to med/surg for bowel rest and pain management. (+) Nausea without vomiting. Ordered for NG tube to be placed on intermittent suction. Diet: NPO Will continue IV fluids for hydration. Ostomy- Will monitor ostomy output pt seen and examined. agree w/ above. Pt has had these episodes frequently and usually resolved w/ fluids and bowel rest. She recently had a shot of neupogen- this is accounting for the elevated WBC count at this time. I don't think thise represents any infection. She did have an lg pelvic abscess for which she had a drian placed 11/14. CT today shows resolution of the collection. There is minimal output in the drain today. She is off abx. She has a F/u CT w/ [place] [facility] [place]. She did start vomiting copious material. I did view her Ct scan, which did show a lg volumes of fluid in her stomach adn through out all the intestines. No free air or signs of intestinal ischemia. So, it was elected to place an NGT. We will continue w/ conservative medical management. She is comfortable and shows no signs of peritonitis/sepsis. History of Present Illness History of Present Illness Chief Complaint: Small Bowel Obstruction Narrative: 59 y/o female with a history of recurrent rectal cancer status post total abdominal proctocolectomy presented to the ER with abdominal pain. She reports that she had not had any output from her ostomy and that she has nausea without vomiting. She denies any fevers or chills at this time. [facility] Medical History Chronic gastritis (Acute 11/01/17) Essential (primary) hypertension (Acute) FAP (familial adenomatous polyposis) (Chronic) History of Helicobacter pylori infection (Chronic) 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 Rectal adenocarcinoma (Acute 04/25/18) Dr Ceballos Tubular adenoma (Acute) 11/23/15-DR. DALE 12/12/16-DR. DALE 11/01/16, tubular adenoma of rectal stump and anal verge, Dr Ted Ceballos tubular adenoma of rectal stump tubular adenoma anal verge Surgical History Abnormal colonoscopy (Inactive 04/25/18) Dr Ceballos, flex sigmoidoscopy Anoscopy (07/09/17) Colectomy (~1993) LARGE BOWEL reanastomosis colonoscopy (12/12/16) Colonoscopy - MAC (11/01/17) EGD - MAC (11/01/17) EGD - MAC (04/25/18) EXCISION SEBACEOUS CYST (04/11/15) LEFT POSTAURICULAR REGION H/O resection of rectum (Acute ~07/31/19) Proctectomy w/ abdominoperineal pullthrough and myocutaneous flap History of esophagogastroduodenoscopy (EGD) (Chronic 04/25/18) Dr Ceballos Sigmoidoscopy (06/01/19) 04/25/18- malignant polyp surveillance of rectal stump (12/12/16) Family History Mother Essential hypertension Father , 84 Heart disease CABG AGE 82 Prostate cancer Son FAP (familial adenomatous polyposis) Daughter Thyroid cancer Sister No problems noted. Brother No problems noted. Sister No problems noted. Sister No problems noted. Brother No problems noted. Social History Smoking/Tobacco Use Status: Never Alcohol Intake: former Drug use: Daily Substance use type: does not use Details: Household members: spouse Housing: house Communication Needs: None Do you need help understanding health information?: Rarely Pets and animals: Yes Pets and animals: cat(s) Do you think of yourself as: straight/heterosexual Current gender identity: female What is your relationship status?: How often do you talk on the phone with friends or family?: decline to answer How often do you get together with friends or relatives?: twice per week How often do you attend pentecostal or presybeterian services?: 1-3 times per year Do you belong to any clubs or organized social groups?: decline to answer Panel score (0-1 are the most socially isolated patients): 1 What type of physical activity do you participate in: walking Duration: 15-30 minutes/day Frequency: 5-6 times per week Destini/Orthodox: Sabianism Special destini needs: No Seatbelt use: always Helmet use: No Drive intox or ride w/intox hammer 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 Meds Home Medications and Allergies Home Medications Medication Instructions Recorded Confirmed Type vit D3-folic [id number] 1 tab PO DAILY 06/01/19 11/25/19 History Metamucil 0.5 tbsp PO TID 10/05/19 11/25/19 History ostomy supplies #1 each 11/02/19 11/12/19 History prochlorperazine maleate 10 mg 10 mg PO QID PRN 11/02/19 11/25/19 History tablet Allergies Allergy/AdvReac Type Severity Reaction Status Date / Time morphine AdvReac Intermediate BAD DREAMS Verified 11/25/19 10:41 Exam Const General: acute distress and frail appearing Orientation: alert and oriented x3 Resp Effort & Inspection: normal respiratory effort, no audible wheezes and no cough Auscultation: clear to auscultation bilaterally GI Inspection: normal to inspection and non-distended Palpation: guarding and tender in the RLQ and in the LUQ Other: Ostomy is full of brown, watery stool Results Labs Result diagrams: 11/25/19 01:40 11/25/19 01:40 Labs: Laboratory Results - last 24 hr 11/25/19 11/25/19 11/25/19 01:40 01:40 04:32 WBC 17.03 H RBC 4.27 Hgb 10.9 L Hct 33.3 L MCV 78.0 L MCH 25.5 L MCHC 32.7 RDW 20.3 H Plt Count 590 H MPV 9.3 Immature Gran % 0.5 Neutrophils % 87.6 Lymphocytes % 7.4 Monocytes % 3.7 Eosinophils % 0.6 Basophils % 0.2 Absolute Neutrophils 14.92 H Absolute Lymphocytes 1.26 Absolute Monocytes 0.63 Absolute Eosinophils 0.10 Absolute Basophils 0.03 Differential Comment Rbc morph reviewed RBC Morphology See below Anisocytosis 2+ Microcytosis 2+ Sodium 131 L Potassium 3.9 Chloride 93 L Carbon Dioxide 23.7 Anion Gap 14.3 H BUN 23 H Creatinine 1.14 H Estimated GFR/1.73 m2 48.79 Glucose 115 H Calcium 10.3 H Magnesium 1.7 L Total Bilirubin 0.3 AST 62 H ALT 59 Alkaline Phosphatase 394 H Troponin I < 0.05 Cancelled Total Protein 8.0 Albumin 3.2 L Last Vital Signs Temp 37.1 C 11/25/19 06:41 Pulse 89 11/25/19 10:45 Resp 14 11/25/19 03:54 BP 117/65 11/25/19 10:45 Pulse Ox 99 11/25/19 10:50 COVID-19 Screening Traveled to [place] from one of the affected countries or regions?: N Recent travel in the [place] within the last 8 weeks?: No Recent out of the country travel within the last 8 weeks?: No Exposure or possible exposure to illness during travel?: No Had IN PERSON contact w/suspected or confirmed C-19 person: Yes Have you had the following symptoms in the past few days?: No Symptoms noted since travel?: No Symptoms
[2019-11-25] MEDS: Normal Saline Flush 10 ML SYR IVP (15:46)
[2019-11-25] MEDS: Pantoprazole 40 MG VIAL IVP (15:47)
--- NOTE | 2019-11-25 16:39 | W.PM.PROGNOT ---
Date of Service Date of service: 11/25/19 Time of Service: 16:39 Assessment and Plan Assessment and plan (1) Partial small bowel obstruction: Status: Acute Assessment and plan: this appears to be resolved. She is tolerating water We will try cl liquids and see how she fares. She really wants to go home NGT is removed. if she tolerates a cl liq try she can go home. She is very motivated to go home. She understands to stay on a cl liq /high protein diet. She had previously arranged appts w/ IR to have drain removed. And onc appt to start chemo on 12/06. If she has increased pain/decreased osotmy output/fevers/vomiting- return to ED. (2) Nausea & vomiting: Status: Acute (3) Dehydration: Status: Acute (4) Acute hyponatremia: Status: Acute (5) Primary malignant neoplasm of colon: Status: Acute (6) FAP (familial adenomatous polyposis): Status: Chronic (7) Rectal adenocarcinoma: Status: Acute Subjective Subjective Interval history since last seen: pt is feeling much better. minimal from NGT. + output from ostomy. decreased pain and distention. She has good BS and is hungry Exam Chest Chest: normal inspection of the chest Resp Effort & Inspection: normal respiratory effort and able to speak in complete sentences Auscultation: clear to auscultation bilaterally GI Inspection: normal to inspection Palpation: soft Auscultation: normal bowel sounds Other: incision is well healed. no hernias. ostomy is pink and healthy. She has good output. distention is resolved. She has good BS Objective Objective Clinical Data: Abnormal lab results 11/25/19 11/25/19 Range/Units 01:40 01:40 WBC 17.03 H (4.4-10.8) k/cumm Hgb 10.9 L (12.0-15.5) g/dL Hct 33.3 L (36.0-46.0) % MCV 78.0 L (80-95) fL MCH 25.5 L (27.0-33.0) pg RDW 20.3 H (11.7-14.6) % Plt Count 590 H (130-400) x1000/uL Absolute Neutrophils 14.92 H (1.2-6.7) k/cumm Sodium 131 L (136-145) mmol/L Chloride 93 L (98-107) mmol/L Anion Gap 14.3 H (3-11) mmol/L BUN 23 H (7-18) mg/dL Creatinine 1.14 H (0.55-1.02) mg/dL Glucose 115 H (74-106) mg/dL Calcium 10.3 H (8.5-10.1) mg/dL Magnesium 1.7 L (1.8-2.4) mg/dL AST 62 H (15-37) U/L Alkaline Phosphatase 394 H (46-116) U/L Albumin 3.2 L (3.4-5.0) g/dL Vital Signs Temperature 37.1 C 11/25/19 15:40 Temperature Source Tympanic 11/25/19 15:40 Pulse 76 11/25/19 15:40 Pulse Rhythm Regular 11/25/19 14:41 Pulse 87 11/25/19 10:50 Respiratory Rate 18 11/25/19 15:40 Respiratory Effort 11/25/19 14:41 Respiratory Depth Normal 11/25/19 14:41 Respiratory Pattern Normal 11/25/19 14:41 Blood Pressure 108/67 11/25/19 15:40 Blood Pressure Mean 78 11/25/19 10:45 Blood Pressure Position Supine 11/25/19 01:18 Pulse Oximetry 98 11/25/19 15:40 Oxygen Delivery Method Room Air 11/25/19 15:40 Oxygen Flow Rate 0 11/25/19 15:40 Pain Level 0 11/25/19 15:40 Intake & Output 11/24/19 11/25/19 11/25/19 23:59 11:59 23:59 Intake Total 2651 / 2651 Output Total 200 / 1680 1480 / 1680 Balance 2451 / 971 -1480 / 971 Weight 61.235 kg 61.235 kg Intake: IV 2651 / 2651 Output: Gastric Drainage 200 / 250 50 / 250 Right Nare 200 / 250 50 / 250 Drainage 30 / 30 RLQ abd 30 / 30 Stool 1400 / 1400 Other: Stool Characteristics Liquid Brown Laboratory Results WBC 17.03 k/cumm (4.4-10.8) H 11/25/19 01:40 RBC 4.27 m/cumm (4.00-5.20) 11/25/19 01:40 Hgb 10.9 g/dL (12.0-15.5) L 11/25/19 01:40 Hct 33.3 % (36.0-46.0) L 11/25/19 01:40 MCV 78.0 fL (80-95) L 11/25/19 01:40 MCH 25.5 pg (27.0-33.0) L 11/25/19 01:40 MCHC 32.7 g/dL (32.0-36.0) 11/25/19 01:40 RDW 20.3 % (11.7-14.6) H 11/25/19 01:40 Plt Count 590 x1000/uL (130-400) H 11/25/19 01:40 MPV 9.3 fL (8.0-11.0) 11/25/19 01:40 Immature Gran % 0.5 % 11/25/19 01:40 Neutrophils % 87.6 11/25/19 01:40 Lymphocytes % 7.4 11/25/19 01:40 Monocytes % 3.7 11/25/19 01:40 Eosinophils % 0.6 11/25/19 01:40 Basophils % 0.2 11/25/19 01:40 Absolute Neutrophils 14.92 k/cumm (1.2-6.7) H 11/25/19 01:40 Absolute Lymphocytes 1.26 k/cumm (1.2-3.4) 11/25/19 01:40 Absolute Monocytes 0.63 k/cumm (0.11-0.7) 11/25/19 01:40 Absolute Eosinophils 0.10 k/cumm (0.0-0.7) 11/25/19 01:40 Absolute Basophils 0.03 k/cumm (0.0-0.2) 11/25/19 01:40 Differential Comment Rbc morph reviewed 11/25/19 01:40 RBC Morphology See below 11/25/19 01:40 Anisocytosis 2+ 11/25/19 01:40 Microcytosis 2+ 11/25/19 01:40 Sodium 131 mmol/L (136-145) L 11/25/19 01:40 Potassium 3.9 mmol/L (3.5-5.1) 11/25/19 01:40 Chloride 93 mmol/L (98-107) L 11/25/19 01:40 Carbon Dioxide 23.7 mmol/L (21.0-32.0) 11/25/19 01:40 Anion Gap 14.3 mmol/L (3-11) H 11/25/19 01:40 BUN 23 mg/dL (7-18) H 11/25/19 01:40 Creatinine 1.14 mg/dL (0.55-1.02) H 11/25/19 01:40 Estimated GFR/1.73 m2 48.79 (mL/min/1.73m2) 11/25/19 01:40 Glucose 115 mg/dL (74-106) H 11/25/19 01:40 Calcium 10.3 mg/dL (8.5-10.1) H 11/25/19 01:40 Magnesium 1.7 mg/dL (1.8-2.4) L 11/25/19 01:40 Total Bilirubin 0.3 mg/dL (0.2-1.0) 11/25/19 01:40 AST 62 U/L (15-37) H 11/25/19 01:40 ALT 59 U/L (14-59) 11/25/19 01:40 Alkaline Phosphatase 394 U/L (46-116) H 11/25/19 01:40 Troponin I Cancelled 11/25/19 04:32 Total Protein 8.0 g/dL (6.4-8.2) 11/25/19 01:40 Albumin 3.2 g/dL (3.4-5.0) L 11/25/19 01:40
--- NOTE | 2019-11-25 19:02 | DSE_ITS ---
DS: Diagnosis Discharge Diagnosis (1) Partial small bowel obstruction: Status: Acute Discharge Plan Disposition Patient Disposition: HOME Condition: Stable Discharge Details Chief Complaint: Abd Prob Clinical Impression: Partial small bowel obstruction Reason For Visit: SMALL BOWEL OBSTRUCTION Admit Date/Time: 11/25/19 09:20 Admit Provider: Lulu Solares Attending Provider: Lulu Solares Primary Care Provider: David Isabel ED Provider: Alo Roth Hospital Course Hospital Course: pt was admitted early through ED on 11/24 w/ SBO as demonstrated on CT. With fluids and pain meds, this has resolved. She was recently treated for a pelvic abscess. She has minimal drainage in her perc drain today. She is off abx. She did receive neupogen last week- I believe this is what is elevating her WBC today. At the time of discharge, her abdomen is non tender. She is having good output from her ostomy, and tolerating clear liquids. She has no pain and no fever. She really wants to go home. She started chemo again on 12/06. [place] [facility] [place]. If she has increase in pain/decrease in output/n/v- return to ED. Pt is adement that she wants to go home tonight. Pt is also very familiar w/ her healthcareand very reliable. Home Meds and New Rx's Prescriptions: Continued (DME) ostomy supplies Misc See Rx Instructions .ROUTE .MEDSUPPLY Qty: 1 RF: 0 prochlorperazine maleate [Compazine] 10 mg tablet 10 mg PO QID PRNRF: 0 Metamucil 3.4 gram/5.4 gram Powder 0.5 tbsp PO TID RF: 0 vit D3-folic [id number] 2,000-800-0.32 unit-mcg-mg Tablet 1 tab PO DAILY RF: 0 Discharge Instructions Activity:: Activity as Tolerated Equipment/Supplies:: No Equipment Needed Diet:: full liquid diet DS: Summary Status at Discharge Functional status at discharge: independent ambulation Overall status at discharge: patient is back to baseline Mental Status: mental status grossly normal Speech and Movement: speech and movement normal Mood: congruent mood Affect: normal affect Exam Psych Mental Status: mental status grossly normal Speech and Movement: speech and movement normal Mood: congruent mood Affect: normal affect DS: Data Vitals/I&O Vitals and I&O: Vital Signs Temperature 37.1 C 11/25/19 15:40 Temperature Source Tympanic 11/25/19 15:40 Pulse 76 11/25/19 15:40 Pulse Rhythm Regular 11/25/19 16:10 Pulse 87 11/25/19 10:50 Respiratory Rate 18 11/25/19 15:40 Respiratory Effort 11/25/19 16:10 Respiratory Depth Normal 11/25/19 16:10 Respiratory Pattern Normal 11/25/19 16:10 Blood Pressure 108/67 11/25/19 15:40 Blood Pressure Mean 78 11/25/19 10:45 Blood Pressure Position Supine 11/25/19 01:18 Pulse Oximetry 98 11/25/19 15:40 Oxygen Delivery Method Room Air 11/25/19 15:40 Oxygen Flow Rate 0 11/25/19 15:40 Pain Level 0 11/25/19 15:40 Intake & Output 11/24/19 11/25/19 11/25/19 23:59 11:59 23:59 Intake Total 2651 / 3131 480 / 3131 Output Total 200 / 1680 1480 / 1680 Balance 2451 / 1451 -1000 / 1451 Weight 61.235 kg 61.235 kg Intake: IV 2651 / 2651 Oral 480 / 480 Output: Gastric Drainage 200 / 250 50 / 250 Right Nare 200 / 250 50 / 250 Drainage 30 / 30 RLQ abd 30 / 30 Stool 1400 / 1400 Other: Stool Characteristics Liquid Brown Data Completed and Pending Labs on day of discharge: Labs from last 24 hours 11/25/19 11/25/19 11/25/19 04:32 01:40 01:40 WBC 17.03 H RBC 4.27 Hgb 10.9 L Hct 33.3 L MCV 78.0 L MCH 25.5 L MCHC 32.7 RDW 20.3 H Plt Count 590 H MPV 9.3 Immature Gran % 0.5 Neutrophils % 87.6 Lymphocytes % 7.4 Monocytes % 3.7 Eosinophils % 0.6 Basophils % 0.2 Absolute Neutrophils 14.92 H Absolute Lymphocytes 1.26 Absolute Monocytes 0.63 Absolute Eosinophils 0.10 Absolute Basophils 0.03 Differential Comment Rbc morph reviewed RBC Morphology See below Anisocytosis 2+ Microcytosis 2+ Sodium 131 L Potassium 3.9 Chloride 93 L Carbon Dioxide 23.7 Anion Gap 14.3 H BUN 23 H Creatinine 1.14 H Estimated GFR/1.73 m2 48.79 Glucose 115 H Calcium 10.3 H Magnesium 1.7 L Total Bilirubin 0.3 AST 62 H ALT 59 Alkaline Phosphatase 394 H Troponin I Cancelled < 0.05 Total Protein 8.0 Albumin 3.2 L PFSH Medical History Chronic gastritis (Acute 11/01/17) Essential (primary) hypertension (Acute) FAP (familial adenomatous polyposis) (Chronic) History of Helicobacter pylori infection (Chronic) 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 Rectal adenocarcinoma (Acute 04/25/18) Dr Ceballos Tubular adenoma (Acute) 11/23/15-DR. DALE 12/12/16-DR. DALE 11/01/16, tubular adenoma of rectal stump and anal verge, Dr Ted Ceballos -2017 tubular adenoma of rectal stump tubular adenoma anal verge Surgical History Abnormal colonoscopy (Inactive 04/25/18) Dr Ceballos, flex sigmoidoscopy Anoscopy (07/09/17) Colectomy (~1993) LARGE BOWEL reanastomosis colonoscopy (12/12/16) Colonoscopy - MAC (11/01/17) EGD - MAC (11/01/17) EGD - MAC (04/25/18) EXCISION SEBACEOUS CYST (04/11/15) LEFT POSTAURICULAR REGION H/O resection of rectum (Acute ~07/31/19) Proctectomy w/ abdominoperineal pullthrough and myocutaneous flap History of esophagogastroduodenoscopy (EGD) (Chronic 04/25/18) Dr Ceballos Sigmoidoscopy (06/01/19) 04/25/18- malignant polyp surveillance of rectal stump (12/12/16) Family History Mother Essential hypertension Father , 84 Heart disease CABG AGE 82 Prostate cancer Son FAP (familial adenomatous polyposis) Daughter Thyroid cancer Sister No problems noted. Brother No problems noted. Sister No problems noted. Sister No problems noted. Brother No problems noted. Social History Smoking/Tobacco Use Status: Never Alcohol Intake: former Drug use: Daily Substance use type: does not use Details: Household members: spouse Housing: house Communication Needs: None Do you need help understanding health information?: Rarely Pets and animals: Yes Pets and animals: cat(s) Do you think of yourself as: straight/heterosexual Current gender identity: female What is your relationship status?: How often do you talk on the phone with friends or family?: decline to answer How often do you get together with friends or relatives?: twice per week How often do you attend scientology or zoroastrianism services?: 1-3 times per year Do you belong to any clubs or organized social groups?: decline to answer Panel score (0-1 are the most socially isolated patients): 1 What type of physical activity do you participate in: walking Duration: 15-30 minutes/day Frequency: 5-6 times per week Destini/Yazidism: [employer] Special destini needs: No Seatbelt use: always Helmet use: No Drive intox or ride w/intox otr 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
== END 2019-11-25 20:26 | disposition home or self-care (01) | DRG 389 ==
LOC: ER 09:49 → MS 12:06
PROVIDERS: Admitting Provider Surgery; Emergency Provider Emergency Medicine; PCP Family Medicine; Visit Provider Surgery
DX: K56.600 Partial intestinal obstruction, unspecified as to cause (principal); C20 Malignant neoplasm of rectum; Z90.49 Acquired absence of other specified parts of digestive tract; Z93.3 Colostomy status; I10 Essential (primary) hypertension
CPT/HCPCS: 36415; 80053; 96361; 96365; 96375; 96376; 99223; 99231; 99238; 99285; 74019; 74177; 83735; 84484; 85025; 99284; J2405; J3360; J3475; J3490

== ENCOUNTER 2019-12-21 00:41 | Outpatient (RCR) | payer OTHER, SELFPAY ==
[2019-12-04 10:56] LABS: Abs Immature Grans 0.04 k/cumm (0.0-0.09); Absolute Basophil Count 0.02 k/cumm (0.0-0.2); Absolute Eosinophil Count 0.06 k/cumm (0.0-0.7); Absolute Lymphocyte Count 0.83 k/cumm (1.2-3.4); Absolute Monocyte Count 0.76 k/cumm (0.11-0.7); Basophils % 0.3; Eosinophils % 0.8; HCT 31.9 % (36.0-46.0); HGB 10.3 g/dL (12.0-15.5); Immature Grans % 0.5 %; Lymphocytes % 10.9; Mean Corp. HGB Concentration 32.3 g/dL (32.0-36.0); Mean Corpuscular Hemoglobin 25.7 pg (27.0-33.0); Mean Corpuscular Volume 79.6 fL (80-95); Mean Platelet Volume 8.8 fL (8.0-11.0); Neutrophils % 77.5; Platelet Count 563 x1000/uL (130-400); RBC 4.01 m/cumm (4.00-5.20); RBC Distribution Width 20.8 % (11.7-14.6); White Blood Cell Count 7.61 k/cumm (4.4-10.8)
[2019-12-04] MEDS: Normal Saline Flush 10 ML SYR IVP (11:02)
[2019-12-04] MEDS: Heparin 500 UNITS/5 ML SYRINGE IVP (11:02)
[2019-12-04 11:10] LABS: ALT 35 U/L (14-59); AST 35 U/L (15-37); Albumin 3.1 g/dL (3.4-5.0); Alkaline Phosphatase 223 U/L (46-116); BUN 19 mg/dL (7-18); Bilirubin, Total 0.2 mg/dL (0.2-1.0); CREATININE 0.92 mg/dL (0.55-1.02); Calcium 9.2 mg/dL (8.5-10.1); Chloride 100 mmol/L (98-107); Glucose 92 mg/dL (74-106); Potassium 4.4 mmol/L (3.5-5.1); Sodium 133 mmol/L (136-145); Total Protein 7.7 g/dL (6.4-8.2)
[2019-12-04 13:57] LABS: Anisocytosis 2+; Diff Comment RBC Morph Reviewed; Hypochromasia 1+; Microcytosis 1+
[2019-12-21] MEDS: Normal Saline Flush 10 ML SYR IVP (10:35)
[2019-12-21 10:42] LABS: Abs Immature Grans 0.01 k/cumm (0.0-0.09); Absolute Basophil Count 0.01 k/cumm (0.0-0.2); Absolute Eosinophil Count 0.05 k/cumm (0.0-0.7); Absolute Lymphocyte Count 0.89 k/cumm (1.2-3.4); Absolute Monocyte Count 0.82 k/cumm (0.11-0.7); Absolute Neutrophil Count 4.91 k/cumm (1.2-6.7); Basophils % 0.1; Eosinophils % 0.7; HCT 33.4 % (36.0-46.0); HGB 10.8 g/dL (12.0-15.5); Immature Grans % 0.1 %; Lymphocytes % 13.3; Mean Corp. HGB Concentration 32.3 g/dL (32.0-36.0); Mean Corpuscular Hemoglobin 26.2 pg (27.0-33.0); Mean Corpuscular Volume 80.9 fL (80-95); Mean Platelet Volume 8.8 fL (8.0-11.0); Monocytes % 12.3; Neutrophils % 73.5; RBC 4.13 m/cumm (4.00-5.20); RBC Distribution Width 21.3 % (11.7-14.6); White Blood Cell Count 6.69 k/cumm (4.4-10.8)
[2019-12-21 10:54] LABS: Anisocytosis 2+; Basophilic Stippling Present; Diff Comment RBC Morph Reviewed; Hypochromasia 1+; Platelet Count 370 x1000/uL (130-400)
[2019-12-21 10:56] LABS: ALT 36 U/L (14-59); AST 37 U/L (15-37); Albumin 3.4 g/dL (3.4-5.0); Alkaline Phosphatase 175 U/L (46-116); Anion Gap 9.5 mmol/L (3-11); BUN 21 mg/dL (7-18); Bilirubin, Total 0.4 mg/dL (0.2-1.0); CO2 29.5 mmol/L (21.0-32.0); CREATININE 1.17 mg/dL (0.55-1.02); Calcium 9.8 mg/dL (8.5-10.1); Chloride 94 mmol/L (98-107); Estimated GFR 47.35 (mL/min/1.73m2); Glucose 94 mg/dL (74-106); Potassium 3.5 mmol/L (3.5-5.1); Sodium 133 mmol/L (136-145)
[2019-12-22 11:11] LABS: CEA 10.7 ng/mL (See Note)
== END 2019-12-24 23:59 | disposition home or self-care (01) ==
LOC: INF 00:41
PROVIDERS: PCP Family Medicine; Visit Provider Internal Medicine Hematology & Oncology
DX: C20 Malignant neoplasm of rectum (principal); Z45.2 Encounter for adjustment and management of vascular access device
CPT/HCPCS: 36415; 36591; 80053; 96523; 82378; 85025

== ENCOUNTER 2020-01-02 08:52 | Emergency (ER) | payer OTHER, SELFPAY ==
--- NOTE | 2020-01-02 08:52 | ED.GENADUL_ITS ---
Discharge Plan Disposition Patient Disposition: HOME Condition: Fair Discharge Details Chief Complaint: Dizzy/Sync Clinical Impression: Dehydration, Hyponatremia Primary Care Provider: David Isabel ED Provider: Poonam Mendoza Home Meds and New Rx's Prescriptions: Continued (DME) ostomy supplies Misc See Rx Instructions .ROUTE .MEDSUPPLY Qty: 1 RF: 0 prochlorperazine maleate [Compazine] 10 mg tablet 10 mg PO QID PRNRF: 0 Metamucil 3.4 gram/5.4 gram Powder 0.5 tbsp PO TID RF: 0 vit D3-folic [id number] 2,000-800-0.32 unit-mcg-mg Tablet 1 tab PO DAILY RF: 0 Discharge Instructions Instructions: Dehydration (ED), Hyponatremia (ED) Additional Instructions: Continue to encourage hydration. Please continue with Metamucil as was previously advised. You will need your kidney function rechecked as discussed on Saturday. Please keep your upcoming appointment general surgery on Saturday. When you see them also discuss your chronic diarrhea. If you develop fever/chills, pain or other new/worsening symptom please seek care urgently once again. Referrals: David Isabel [Primary Care Provider] - Medical Decision Making <CRISTI Portillo - Last Filed: 01/02/20 11:51> Patient pleasant 59-year-old female presents today with chief complaint lightheadedness, weakness and fatigue. States is progressively worsening over the past week. Patient has been seen here previously with similar issues and was diagnosed with hyponatremia. She feels that she may have recurrence of this issue. States that she intermittently has dizziness which she describes as the room spinning but has not been experiencing this at all today. She denies any headache or visual changes. No focal weakness. States that she has been having muscle cramps particularly in bilateral calves. Patient is currently undergoing chemotherapy, next dosing due in 2 days, for adenocarcinoma of the rectum. Patient has undergone resection surgery and currently has a colostomy which patient states has been draining frequently. She reports that she typically has liquid stools. She reports that this is common when she is undergoing chemotherapy. Denies any recent change in this. However, she links the difficulties managing her electrolytes and hydration status with the frequency with which she is having soft stools. Patient also reports she has upcoming evaluation for her persistent draining SHILA in the right lower quadrant. Patient had this placed by 2 months ago after pelvic abscess was drained. Unclear where the drainage is coming from but this seems to be quite bothersome for the patient. She is having this evaluated on Saturday. Patient was evaluated by oncology 2 weeks ago weight was 138, she is 134 today. On exam, patient appears fatigued. She appears chronically ill but no acute distress. Vital signs within normal limits. Patient is afebrile. Her lungs are clear, normal HEENT exam, patient appears well-hydrated. Normal cardiac exam. She does have a small amount of purulent discharge in the SHILA drain which she states is baseline for the appearance of the drainage. She has no peritoneal findings on exam. She has soft yellow stool noted in the colostomy. No rashes noted. Normal reflexes. No lower extremity edema, calves are soft and nontender. Primarily concern for electrolyte abnormality. Of note, hyponatremia is is is been a recurrent issue for the patient. She is receiving normal saline at this time. Of also considered other electrolyte abnormalities. As she has been endorsing fatigue also check a thyroid. Will obtain EKG as well as troponin. Discussed this plan with the patient who is in agreement. Labs reviewed. Patient slightly anemic with a hemoglobin of 11.7. This is baseline for the patient. Her platelets are elevated at 458 but again, this is baseline. Her sodium is 130 which while low, is baseline for the patient and improved from when she has been here historically for hyponatremia. BUN is elevated at 37 with a creatinine of 1.46. This is unusual indicating acute kidney injury. I discussed these findings with the patient. It appears that while she has been hydrating well orally, she is not able to keep up with demand associated with her loose stools. Patient is received 1.5 L while in the department thus far and feels that she is back to baseline feeling much improved. Patient does have follow-up planned on Saturday at which time she will have labs rechecked prior to undergoing chemotherapy. Patient also has an appointment with general surgery on Saturday to discuss the drain. I also advised that she discuss her change in stool. Patient I discussed referral to palliative care for her recurrent difficulties during this hard time. She agrees to referral. I did advise that she take her Metamucil as was previously prescribed as patient states that she is been taking this less than typical and does find this helpful when she uses on a regular basis. Patient was given return precautions. All her questions or concerns were addressed and she is agreement this plan. <Toro Enamorado MD - Last Filed: 01/02/20 11:19> Patient seen, examined, and discussed with CRISTI Mendoza. Concern for hypovolemia secondary to water losses from ostomy output related to likely chemotherapy. Abdominal exam benign. Will send C. difficile testing. TONY and mild electrolyte abnormalities noted. Plan for IV fluid rehydration and discharge with close PCP and oncology outpatient follow-up for repeat creatinine and reassessment. I agree with treatment plan as discussed/documented. Lab Data Lab results reviewed: Yes I reviewed the patient's lab results. ECG Data Attestation: I personally reviewed and interpreted this ECG (s) as follows: (Sinus rhythm 87 bpm, normal axis, T wave inversions are noted V1 to V3, T waves appear slightly peaked.) Prior ECG tracings: available for review (11/20/2019 shows less pronounced T wave inversions in V2 and upright in V3, peaked T's are present.) HPI <CRISTI Portillo - Last Filed: 01/02/20 11:51> General Mode of arrival: ambulatory . Date/Time Provider Initiated Documentation: 01/02/20 08:52 . Limitations to Documentation: no limitations . Information obtained by: patient and RN notes reviewed . HPI Narrative: Patient is a very pleasant 59-year-old female, well-known to myself, with chief complaint of weakness, lightheadedness, myalgias. Patient is currently undergoing chemotherapy for recurrent rectal cancer. She been having issues recently with hyponatremia. She feels that this may have recurred once again. She reports that she has been having frequent liquid stools. Patient does have a colostomy bag. States that even if she is drinking a gallon of water or a gallon of milk just flows into her ostomy bag. She associates this with her chemotherapy dosing and states that it is difficult for her to have fairly profound diarrhea after chemotherapy dosing. States that she is last dose 2 weeks ago and is due again on Saturday. States that she can occasionally have spinning dizziness but that she is not having this at this time. Currently, she is endorsing lightheadedness with movements. She denies any headache, visual changes, neck pain, chest, shortness of breath, abdominal pain. She is endorsing muscle cramping particularly of her calves. Related Data Home Medications Medication Instructions Recorded Confirmed vit D3-folic [id number] 1 tab PO DAILY 06/01/19 01/02/20 Metamucil 0.5 tbsp PO TID 10/05/19 01/02/20 ostomy supplies #1 each 11/02/19 11/12/19 prochlorperazine maleate 10 mg 10 mg PO QID PRN 11/02/19 01/02/20 tablet Allergies Allergy/AdvReac Type Severity Reaction Status Date / Time morphine AdvReac Intermediate BAD DREAMS Verified 01/02/20 09:01 General GIULIANA: 3 Review of Systems <CRISTI Portillo - Last Filed: 01/02/20 11:51> Constitutional Constitutional: Reports as per HPI, Denies chills, Denies fever(s), Denies headache(s), Reports lethargy, Reports malaise, Denies poor appetite and Reports weakness Eyes Eyes: Denies change in vision ENT Ears, Nose, Mouth, and Throat: Reports vertigo, Reports dizziness and Denies headache(s) Cardiovascular Cardiovascular: Reports as per HPI, Denies dyspnea and Denies dyspnea on exertion Respiratory Respiratory: Reports as per HPI, Denies chest congestion, Denies cough, Denies pain on inspiration, Denies pain with cough, Denies dyspnea, Denies dyspnea on exertion and Denies wheezing Gastrointestinal Gastrointestinal: Reports as per HPI, Denies abdominal pain, Reports diarrhea, Reports loose stools, Denies nausea and Denies vomiting Musculoskeletal Musculoskeletal: Reports as per HPI, Denies back pain and Reports muscle cramps Integumentary/Breasts Skin/Breast: Reports as per HPI and Denies rash Neurologic Neurologic: Reports as per HPI, Reports vertigo, Reports dizziness, Denies headache(s) and Reports weakness Allergic/Immunologic Allergic/Immunologic: Denies wheezing PFSH <CRISTI Portillo - Last Filed: 01/02/20 11:51> Medical History Chronic gastritis (Acute 11/01/17) Essential (primary) hypertension (Acute) FAP (familial adenomatous polyposis) (Chronic) History of Helicobacter pylori infection (Chronic) 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 Rectal adenocarcinoma (Acute 04/25/18) Dr Ceballos Tubular adenoma (Acute) 11/23/15-DR. DALE 12/12/16-DR. DALE 11/01/16, tubular adenoma of rectal stump and anal verge, Dr Ted Ceballos tubular adenoma of rectal stump tubular adenoma anal verge Surgical History Abnormal colonoscopy (Inactive 04/25/18) Dr Ceballos, flex sigmoidoscopy Anoscopy (07/09/17) Colectomy (~1993) LARGE BOWEL reanastomosis colonoscopy (12/12/16) Colonoscopy - MAC (11/01/17) EGD - MAC (11/01/17) EGD - MAC (04/25/18) EXCISION SEBACEOUS CYST (04/11/15) LEFT POSTAURICULAR REGION H/O resection of rectum (Acute ~07/31/19) Proctectomy w/ abdominoperineal pullthrough and myocutaneous flap History of esophagogastroduodenoscopy (EGD) (Chronic 04/25/18) Dr Ceballos Sigmoidoscopy (06/01/19) 04/25/18- malignant polyp surveillance of rectal stump (12/12/16) Social History Smoking/Tobacco Use Status: Never Alcohol Intake: former Drug use: Daily Substance use type: does not use Details: Household members: spouse Housing: house Communication Needs: None Do you need help understanding health information?: Rarely Pets and animals: Yes Pets and animals: cat(s) Do you think of yourself as: straight/heterosexual Current gender identity: female What is your relationship status?: How often do you talk on the phone with friends or family?: decline to answer How often do you get together with friends or relatives?: twice per week How often do you attend roman catholic or nondenominational services?: 1-3 times per year Do you belong to any clubs or organized social groups?: decline to answer Panel score (0-1 are the most socially isolated patients): 1 What type of physical activity do you participate in: walking Duration: 15-30 minutes/day Frequency: 5-6 times per week Destini/Mandaen: Sikhism Special destini needs: No Seatbelt use: always Helmet use: No 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 Exam <CRISTI Portillo - Last Filed: 01/02/20 11:51> Const General: cooperative, comfortable, no acute distress, well developed and ill appearing chronically Nutritional Appearance: well nourished and thin Orientation: alert, awake and oriented x3 HENMT Head: normal to inspection Ears: hearing grossly normal bilaterally Mouth: tongue normal (blue from popsicle) and moist mucous membranes Throat: posterior oropharynx normal Chest Chest: normal inspection of the chest, normal palpation of entire chest wall and no crepitus Resp Effort & Inspection: normal respiratory effort, able to speak in complete sentences and no respiratory distress Auscultation: clear to auscultation bilaterally, no rales, no rhonchi and no wheezes Cardio Rate: regular rate Rhythm: regular rhythm Heart Sounds: S1 normal and S2 normal GI Inspection: normal to inspection, no edema, non-distended, no visible herniation, no visible pulsation and other (colostomy left side draining loose yellow stool, SHILA drain on right side) Palpation: soft, no hepatosplenomegaly, not firm, no guarding, not rigid and tender (mild, diffuse, nonspecific pain of abdomen) Auscultation: hyperactive bowel sounds Back/Spine/Pelvis Back: no CVA tenderness Thoracic/Lumbar Spine: thoracic and lumbar spine normal to inspection Skin General skin exam: no rashes or lesions noted Trauma: no lacerations or abrasions Neuro General: patient alert, patient awake and patient oriented x3 Cognition: normal cognition Speech: speech normal Gait: normal gait DTR's: Rt Patellar: 2+ and Lt Patellar: 2+ Extrem General: normal to inspection, capillary refill normal, no pedal edema, no calf tenderness and normal gait Psych Appearance: grossly normal and well kempt Mental Status: mental status grossly normal Speech and Movement: speech and movement normal
[2020-01-02 08:55] VITALS: BP 128/77; PULSE 108; TEMP 37; O2SAT 98
[2020-01-02] MEDS: Normal Saline 1,000 ML 1000 ML IV ×2 (09:25→10:48)
[2020-01-02 09:33] LABS: Abs Immature Grans 0.02 k/cumm (0.0-0.09); Absolute Basophil Count 0.01 k/cumm (0.0-0.2); Absolute Eosinophil Count 0.02 k/cumm (0.0-0.7); Absolute Lymphocyte Count 0.73 k/cumm (1.2-3.4); Absolute Monocyte Count 1.42 k/cumm (0.11-0.7); Absolute Neutrophil Count 8.02 k/cumm (1.2-6.7); Basophils % 0.1; Eosinophils % 0.2; HCT 35.2 % (36.0-46.0); HGB 11.7 g/dL (12.0-15.5); Immature Grans % 0.2 %; Lymphocytes % 7.1; Mean Corp. HGB Concentration 33.2 g/dL (32.0-36.0); Mean Corpuscular Hemoglobin 26.8 pg (27.0-33.0); Mean Corpuscular Volume 80.7 fL (80-95); Mean Platelet Volume 8.8 fL (8.0-11.0); Monocytes % 13.9; Neutrophils % 78.5; Platelet Count 458 x1000/uL (130-400); RBC 4.36 m/cumm (4.00-5.20); RBC Distribution Width 19.9 % (11.7-14.6); White Blood Cell Count 10.22 k/cumm (4.4-10.8)
[2020-01-02 09:54] LABS: ALT 48 U/L (14-59); AST 56 U/L (15-37); Albumin 3.3 g/dL (3.4-5.0); Alkaline Phosphatase 300 U/L (46-116); Anion Gap 7.8 mmol/L (3-11); BUN 37 mg/dL (7-18); Bilirubin, Total 0.3 mg/dL (0.2-1.0); CO2 31.2 mmol/L (21.0-32.0); CREATININE 1.46 mg/dL (0.55-1.02); Chloride 91 mmol/L (98-107); Estimated GFR 36.67 (mL/min/1.73m2); Glucose 110 mg/dL (74-106); Magnesium 1.7 mg/dL (1.8-2.4); Potassium 4.2 mmol/L (3.5-5.1); Sodium 130 mmol/L (136-145); Total Protein 8.9 g/dL (6.4-8.2); Troponin I < 0.05 ng/Ml (<0.06)
[2020-01-02 10:05] LABS: Bilirubin Negative (Negative); Blood Negative (Negative); Clarity Sl Cloudy (Clear); Glucose Negative (Negative); Ketones Negative (Negative); Leukocyte Esterase Negative (Negative); Nitrite Negative (Negative); Specific Gravity >= 1.030 (1.005-1.025); Urobilinogen 0.2 EU/dL (Up TO 0.2); pH 5.5 (5-8)
[2020-01-02 10:20] LABS: Bacteria Few HPF (Negative); C & S Indicated? No; Casts 10-20 Hyaline LPF (Negative); Crystals Negative HPF (Negative); Epithelial Cells Rare HPF (Negative); Mucus Heavy (Negative); Other Cells Few Renal (Negative); RBC 0-2 HPF (0-2)
[2020-01-02 10:23] VITALS: BP 112/69; PULSE 85; RESP 18; O2SAT 100
--- NOTE | 2020-01-02 11:53 | NUR.NOTE ---
reffered to care managment for pallitive care as soon as possible. 01/02/2020 Nursing Note:
== END 2020-01-02 11:55 | disposition home or self-care (01) ==
PROVIDERS: Emergency Provider Physician Assistant; PCP Family Medicine
DX: N17.9 Acute kidney failure, unspecified (principal); E86.0 Dehydration; E87.1 Hypo-osmolality and hyponatremia; R53.83 Other fatigue; C20 Malignant neoplasm of rectum; Z79.899 Other long term (current) drug therapy; M62.831 Muscle spasm of calf; Z93.3 Colostomy status; Z97.8 Presence of other specified devices; I10 Essential (primary) hypertension
CPT/HCPCS: 36415; 80053; 93005; 96360; 96361; 99284; 81003; 81015; 83735; 84443; 84484; 85025; 87324; 93010; 99285

== ENCOUNTER 2020-01-10 13:19 | Emergency (ER) | payer OTHER, SELFPAY ==
[2020-01-10 13:23] VITALS: BP 126/86; PULSE 99; RESP 20; TEMP 36.9; O2SAT 98
--- NOTE | 2020-01-10 13:24 | W.ED.GENAD ---
Discharge Plan Disposition Patient Disposition: HOME Condition: Improving Discharge Details Chief Complaint: Nausea/Vomit/Diar Clinical Impression: Diarrhea, Dehydration, Status post chemotherapy Primary Care Provider: David Isabel ED Provider: Violette Dinero Home Meds and New Rx's Prescriptions: Continued (DME) ostomy supplies Misc See Rx Instructions .ROUTE .MEDSUPPLY Qty: 1 RF: 0 prochlorperazine maleate [Compazine] 10 mg tablet 10 mg PO QID PRNRF: 0 Metamucil 3.4 gram/5.4 gram Powder 0.5 tbsp PO TID RF: 0 vit D3-folic [id number] 2,000-800-0.32 unit-mcg-mg Tablet 1 tab PO DAILY RF: 0 Discharge Instructions Instructions: Dehydration (ED), Acute Diarrhea (ED) Additional Instructions: Drink plenty of fluids and get plenty of rest. Alternate tylenol and motrin as needed and directed for pain. Follow-up with your primary care doctor in 1 week. Return to the emergency department with any worsening or new concerning symptoms. Discharge Data Discharge Physician: Violette Dinero Medical Decision Making 1330 -- 59-year-old female with a history of familial polyposis, rectal adenocarcinoma with previous colon resection and now with colostomy currently undergoing chemotherapy presents with dizziness, dehydration and diarrhea for the past week status post last chemotherapy treatment. EKG on arrival notes a rate of 89, sinus with no acute ST ischemic changes. She has no focal deficits. She appears generally fatigued but nontoxic. She states she feels she mainly just needs IV fluids and then can go home. We will check screening labs, urinalysis, give fluids and Zofran and reassess. 1440 -- pt reassessed - she states she feels better but would like additional fluids. Another liter IVF ordered. 1530 -- labs reviewed. Normal WBC. Sodium 132. Troponin negative. UA negative for infection. pt reassessed - she states she feels much better and is requesting to go home. She was able to eat a popsicle here. She was able to ambulate without difficulty or dizziness. Advised to follow up with the primary care doctor for re-evaluation. Usual and customary return precautions given prior to discharge. Medical Records Medical records reviewed: Yes I reviewed the patient's medical records. ECG Data Attestation: I personally reviewed and interpreted this ECG (s) as follows: Interpretation: Rate of 89, sinus, no acute ST elevation or depression. AK 140. QTc 438. QRS 88. HPI General Mode of arrival: ambulatory. Date/Time Provider Initiated Documentation: 01/10/20 13:20. Limitations to Documentation: no limitations. Information obtained by: patient. HPI Narrative: Pt is a 59uo F w/ a h/o familial polyposis, rectal adenocarcinoma currently undergoing chemotherapy presents for dizziness, dehydration and diarrhea x 1 week. Patient states she has had multiple episodes of watery brown diarrhea daily. She admits to some nausea but denies any vomiting. She denies fever, sore throat, chest pain, shortness of breath, abdominal pain, or urinary symptoms. She recently had her fifth chemotherapy treatment 1 week ago. She states she has been undergoing a series of 8 chemotherapy treatments starting in September and has 3 more treatments remaining. She states she usually experiences diarrhea 1 week post chemotherapy. She denies any recent travel or antibiotics. Patient also has a drain in her right lower quadrant since July 2019 for a pelvic abscess which is periodically drained. Related Data Home Medications Medication Instructions Recorded Confirmed vit D3-folic [id number] 1 tab PO DAILY 06/01/19 01/10/20 Metamucil 0.5 tbsp PO TID 10/05/19 01/10/20 ostomy supplies #1 each 11/02/19 01/10/20 prochlorperazine maleate 10 mg 10 mg PO QID PRN 11/02/19 01/10/20 tablet Allergies Allergy/AdvReac Type Severity Reaction Status Date / Time morphine AdvReac Intermediate BAD DREAMS Verified 01/10/20 13:29 General GIULIANA: 3 Review of Systems All systems reviewed & are unremarkable except as noted in HPI and below Constitutional Constitutional: Reports as per HPI, Denies chills and Denies fever(s) Eyes Eyes: Denies blurry vision ENT Ears, Nose, Mouth, and Throat: Reports dizziness, Denies sore throat and Denies throat swelling Cardiovascular Cardiovascular: Denies chest pain and Denies dyspnea Respiratory Respiratory: Denies cough and Denies dyspnea Gastrointestinal Gastrointestinal: Denies abdominal pain, Reports diarrhea and Reports vomiting Genitourinary Genitourinary: Denies hematuria and Denies dysuria Musculoskeletal Musculoskeletal: Denies back pain and Denies numbness Integumentary/Breasts Skin/Breast: Denies lesions and Denies rash Neurologic Neurologic: Reports dizziness, Denies localized weakness and Denies numbness Allergic/Immunologic Allergic/Immunologic: Denies throat swelling [facility] Social History Smoking/Tobacco Use Status: Never Alcohol Intake: former Drug use: Daily Substance use type: does not use Details: Household members: spouse Housing: house Communication Needs: None Do you need help understanding health information?: Rarely Pets and animals: Yes Pets and animals: cat(s) Do you think of yourself as: straight/heterosexual Current gender identity: female What is your relationship status?: How often do you talk on the phone with friends or family?: decline to answer How often do you get together with friends or relatives?: twice per week How often do you attend shinto or holiness services?: 1-3 times per year Do you belong to any clubs or organized social groups?: decline to answer Panel score (0-1 are the most socially isolated patients): 1 What type of physical activity do you participate in: walking Duration: 15-30 minutes/day Frequency: 5-6 times per week Destini/Roman Catholic: Orthodox Special destini needs: No Seatbelt use: always Helmet use: No Drive intox 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 Do you feel safe at home: Yes Do you feel safe in your relationship?: Yes History History 2 Para 2 Hx # Term Pregnancies Multiple births Hx # Pregnancies Ectopic pregnancies AB induced Hx Number of Living Children AB spontaneous Exam Const General: cooperative, no acute distress and ill appearing chronically Nutritional Appearance: average body habitus Orientation: alert, awake and oriented x3 HENMT Head: normal to inspection Face and sinus: normal facial exam Eyes General: appearance normal, both eyes and all related structures EOM: EOM intact bilaterally Neck Neck: normal visual inspection and No submandibular swelling Lymphatic: no lymphadenopathy noted Chest Chest: normal inspection of the chest and other (port L upper chest) Resp Effort & Inspection: normal respiratory effort and able to speak in complete sentences Auscultation: clear to auscultation bilaterally Cardio Rate: regular rate Rhythm: regular rhythm GI Inspection: normal to inspection and other (colostomy bag LLQ; drain RLQ w/ pinkish serous fluid in tubing/bulb. ) Palpation: soft, not firm, not rigid and tender (across lower abdomen) Auscultation: normal bowel sounds Back/Spine/Pelvis Thoracic/Lumbar Spine: thoracic and lumbar spine normal to inspection Pelvis: no pain with anterior-posterior compression Skin General skin exam: no rashes or lesions noted Neuro General: patient alert, patient awake and patient oriented x3 Cognition: normal cognition Speech: speech normal Motor: muscle tone normal throughout Sensory Exam: no sensory deficits noted Extrem General: normal to inspection, full ROM, capillary refill normal, no calf tenderness bilaterally and no edema Psych Appearance: grossly normal Mental Status: mental status grossly normal Speech and Movement: speech and movement normal Affect: normal affect
[2020-01-10] MEDS: Ondansetron 4 MG/2 ML VIAL IVP (14:04)
[2020-01-10] MEDS: Normal Saline 1,000 ML 1000 ML IV ×2 (14:04→14:58)
[2020-01-10 14:08] LABS: Abs Immature Grans 0.03 k/cumm (0.0-0.09); Absolute Basophil Count 0.01 k/cumm (0.0-0.2); Absolute Eosinophil Count 0.03 k/cumm (0.0-0.7); Absolute Monocyte Count 0.77 k/cumm (0.11-0.7); Absolute Neutrophil Count 6.15 k/cumm (1.2-6.7); Basophils % 0.1; Eosinophils % 0.4; HCT 34.6 % (36.0-46.0); HGB 11.4 g/dL (12.0-15.5); Immature Grans % 0.4 %; Lymphocytes % 6.7; Mean Corp. HGB Concentration 32.9 g/dL (32.0-36.0); Mean Corpuscular Volume 81.8 fL (80-95); Mean Platelet Volume 9.2 fL (8.0-11.0); Monocytes % 10.3; Neutrophils % 82.1; Platelet Count 354 x1000/uL (130-400); RBC 4.23 m/cumm (4.00-5.20); RBC Distribution Width 18.7 % (11.7-14.6); White Blood Cell Count 7.49 k/cumm (4.4-10.8)
[2020-01-10 15:05] LABS: Bilirubin Negative (Negative); Blood Negative (Negative); Clarity Clear (Clear); Glucose Negative (Negative); Ketones Negative (Negative); Leukocyte Esterase Negative (Negative); Nitrite Negative (Negative); Specific Gravity 1.025 (1.005-1.025); Urobilinogen 0.2 EU/dL (Up TO 0.2)
[2020-01-10 15:06] LABS: ALT 42 U/L (14-59); AST 53 U/L (15-37); Albumin 3.2 g/dL (3.4-5.0); Alkaline Phosphatase 217 U/L (46-116); Anion Gap 12.8 mmol/L (3-11); BUN 20 mg/dL (7-18); Bilirubin, Total 0.6 mg/dL (0.2-1.0); CO2 27.2 mmol/L (21.0-32.0); CREATININE 1.26 mg/dL (0.55-1.02); Calcium 9.5 mg/dL (8.5-10.1); Chloride 92 mmol/L (98-107); Estimated GFR 43.46 (mL/min/1.73m2); Glucose 121 mg/dL (74-106); Magnesium 1.9 mg/dL (1.8-2.4); Potassium 3.4 mmol/L (3.5-5.1); Sodium 132 mmol/L (136-145); Total Protein 8.6 g/dL (6.4-8.2)
[2020-01-10 15:07] LABS: Troponin I < 0.05 ng/Ml (<0.06)
[2020-01-10 15:14] LABS: Bacteria Negative HPF (Negative); C & S Indicated? No; Casts 0-2 Hyaline LPF (Negative); Crystals Negative HPF (Negative); Epithelial Cells Negative HPF (Negative); Mucus Heavy (Negative); RBC Negative HPF (0-2); WBC 0-2 HPF (0-5)
== END 2020-01-10 16:10 | disposition home or self-care (01) ==
PROVIDERS: Emergency Provider Physician Assistant; PCP Family Medicine
DX: E86.0 Dehydration (principal); R19.7 Diarrhea, unspecified; R42 Dizziness and giddiness; Z93.3 Colostomy status; Z95.828 Presence of other vascular implants and grafts; C20 Malignant neoplasm of rectum; Z79.899 Other long term (current) drug therapy
CPT/HCPCS: 36591; 80053; 93005; 96361; 96374; 99284; 81003; 81015; 83735; 84484; 85025; 93010; J2405

== ENCOUNTER 2020-01-12 14:22 | Outpatient (CLI) | payer OTHER, SELFPAY ==
--- NOTE | 2020-01-12 15:39 | DI.RAD_ITS ---
EXAM: RF CATHETER PATENCY CHECK W CLINICAL HISTORY: RECTAL CA,C20,NO BLOOD RETURN, CAN FEEL CATHETER COIL DOWN, DYE STUDY TO. TECHNIQUE: 2D and realtime digital imaging was performed. CONTRAST MATERIAL: Contrast was administered. COMPARISON: No exams were available for comparison FINDINGS: Fluoroscopy was utilized for evaluation of the patient's indwelling port. The tip of the catheter is seen at the confluence of the brachiocephalic veins. Contrast flows freely from the tip of the cath eter. No obstruction is identified. The findings were discussed with the patient's primary care team on the date of the examination. IMPRESSION:
== END 2020-01-12 14:42 ==
PROVIDERS: PCP Family Medicine; Visit Provider Nurse Practitioner Adult Health
DX: C20 Malignant neoplasm of rectum (principal); Z45.2 Encounter for adjustment and management of vascular access device
CPT/HCPCS: 76000

== ENCOUNTER 2020-01-21 02:59 | Outpatient (RCR) | payer OTHER, SELFPAY ==
[2020-01-04 10:15] LABS: Abs Immature Grans 0.03 k/cumm (0.0-0.09); Absolute Basophil Count 0.02 k/cumm (0.0-0.2); Absolute Eosinophil Count 0.03 k/cumm (0.0-0.7); Absolute Lymphocyte Count 0.79 k/cumm (1.2-3.4); Absolute Monocyte Count 1.21 k/cumm (0.11-0.7); Absolute Neutrophil Count 6.14 k/cumm (1.2-6.7); Basophils % 0.2; Eosinophils % 0.4; HCT 32.9 % (36.0-46.0); HGB 10.5 g/dL (12.0-15.5); Immature Grans % 0.4 %; Lymphocytes % 9.6; Mean Corp. HGB Concentration 31.9 g/dL (32.0-36.0); Mean Corpuscular Hemoglobin 26.6 pg (27.0-33.0); Mean Corpuscular Volume 83.5 fL (80-95); Mean Platelet Volume 8.8 fL (8.0-11.0); Monocytes % 14.7; Neutrophils % 74.7; Platelet Count 309 x1000/uL (130-400); RBC 3.94 m/cumm (4.00-5.20); White Blood Cell Count 8.22 k/cumm (4.4-10.8)
[2020-01-04] MEDS: Normal Saline Flush 10 ML SYR IVP (10:23)
[2020-01-04 10:33] LABS: Iron 29 ug/dL (50-170); Total Iron Binding Capacity 625 ug/dL (250-450); Transferrin Sat 5 % (15-50)
[2020-01-04 10:38] LABS: ALT 34 U/L (14-59); AST 33 U/L (15-37); Albumin 3.1 g/dL (3.4-5.0); Alkaline Phosphatase 213 U/L (46-116); Anion Gap 6.5 mmol/L (3-11); BUN 21 mg/dL (7-18); Bilirubin, Total 0.3 mg/dL (0.2-1.0); CO2 33.5 mmol/L (21.0-32.0); CREATININE 0.97 mg/dL (0.55-1.02); Calcium 9.5 mg/dL (8.5-10.1); Chloride 94 mmol/L (98-107); Estimated GFR 58.78 (mL/min/1.73m2); Ferritin 195 ng/mL (8-252); Glucose 109 mg/dL (74-106); Potassium 3.9 mmol/L (3.5-5.1); Sodium 134 mmol/L (136-145)
[2020-01-05 10:48] LABS: CEA 12.1 ng/mL (See Note)
[2020-01-12] MEDS: Normal Saline Flush 10 ML SYR IVP (15:30)
[2020-01-12] MEDS: Heparin 500 UNITS/5 ML SYRINGE IV (15:30)
[2020-01-15] MEDS: Normal Saline Flush 10 ML SYR IVP (12:35)
[2020-01-15 13:03] LABS: Abs Immature Grans 0.02 k/cumm (0.0-0.09); Absolute Basophil Count 0.02 k/cumm (0.0-0.2); Absolute Eosinophil Count 0.03 k/cumm (0.0-0.7); Absolute Lymphocyte Count 0.83 k/cumm (1.2-3.4); Absolute Monocyte Count 1.38 k/cumm (0.11-0.7); Absolute Neutrophil Count 7.18 k/cumm (1.2-6.7); Basophils % 0.2; Eosinophils % 0.3; HGB 11.2 g/dL (12.0-15.5); Immature Grans % 0.2 %; Lymphocytes % 8.8; Mean Corp. HGB Concentration 32.9 g/dL (32.0-36.0); Mean Corpuscular Volume 81.9 fL (80-95); Mean Platelet Volume 9.1 fL (8.0-11.0); Monocytes % 14.6; Neutrophils % 75.9; Platelet Count 413 x1000/uL (130-400); RBC 4.15 m/cumm (4.00-5.20); RBC Distribution Width 19.1 % (11.7-14.6); White Blood Cell Count 9.46 k/cumm (4.4-10.8)
[2020-01-15 13:22] LABS: ALT 56 U/L (14-59); AST 62 U/L (15-37); Albumin 3.2 g/dL (3.4-5.0); Alkaline Phosphatase 280 U/L (46-116); Anion Gap 8.9 mmol/L (3-11); BUN 24 mg/dL (7-18); Bilirubin, Total 0.4 mg/dL (0.2-1.0); CO2 30.1 mmol/L (21.0-32.0); CREATININE 1.22 mg/dL (0.55-1.02); Calcium 9.7 mg/dL (8.5-10.1); Chloride 91 mmol/L (98-107); Estimated GFR 45.11 (mL/min/1.73m2); Glucose 148 mg/dL (74-106); Potassium 3.1 mmol/L (3.5-5.1); Sodium 130 mmol/L (136-145); Total Protein 8.5 g/dL (6.4-8.2)
[2020-01-17] MEDS: Normal Saline Flush 10 ML SYR IVP (10:20)
[2020-01-17] MEDS: Normal Saline 1,000 ML 1000 ML IV (10:20)
[2020-01-17] MEDS: Heparin 500 UNITS/5 ML SYRINGE IV (11:32)
[2020-01-18 11:11] LABS: CEA 12.4 ng/mL (See Note)
[2020-01-21] MEDS: Normal Saline 1,000 ML 1000 ML IV (08:07)
[2020-01-21] MEDS: Heparin 500 UNITS/5 ML SYRINGE IV (08:07)
[2020-01-21] MEDS: Normal Saline Flush 10 ML SYR IVP (08:07)
[2020-01-21 09:15] VITALS: BP 137/87; PULSE 112; RESP 20; O2SAT 100
[2020-01-21 09:29] VITALS: BP 118/68; PULSE 117; RESP 20; O2SAT 100
[2020-01-21 09:35] VITALS: BP 95/68; PULSE 110; RESP 20; O2SAT 100
[2020-01-21 09:40] VITALS: BP 93/68; PULSE 110; RESP 20; O2SAT 100
== END 2020-01-24 23:59 | disposition home or self-care (01) ==
LOC: INF 02:59
PROVIDERS: Internal Medicine Hematology & Oncology; PCP Family Medicine; Visit Provider Internal Medicine
DX: C20 Malignant neoplasm of rectum (principal); Z45.2 Encounter for adjustment and management of vascular access device
CPT/HCPCS: 36591; 80053; 96360; 96361; 96365; 96523; 82378; 82728; 83540; 83550; 85025

== ENCOUNTER 2020-01-21 09:37 | Observation (INO) | payer OTHER, SELFPAY ==
[2020-01-21] VITALS (78 sets, daily range): BP systolic 91–125; BP diastolic 45–81; PULSE 73–105; RESP 1–28; TEMP 36.4–37; O2SAT 98–100
--- NOTE | 2020-01-21 09:56 | DI.CT_ITS ---
EXAM: CT CHEST PE ABD PELVIS W CLINICAL HISTORY: abd pain, colon cancer, CHEST PAIN. TECHNIQUE: Imaging Protocol: Axial CT angiography was performed with multi-slice acquisition and mu lti-planar and/or 3D reconstructions. CONTRAST MATERIAL: Intravenous: Omnipaque 350 Contrast volume:structured data in ml COMPARISON: CT ABD PELVIS WITH CONTRAST from 10/05/[address] ABDOMEN PELVIS W from 09/20/[address] ABDOMEN PELVIS WO from 11/12/[address] CHEST PE CTA from 11/20/[address] ABDOMEN PELVIS W from 11/25/2019 FINDINGS: PE chest CT: Pulmonary Arteries: No evidence of filling defect to suggest pulmonary emboli. Tracheobronchial tree: Patent where visualized. Mediastinum and Ernetta: No dominant adenopathy or fluid collection. Pulmonary parenchyma: No consolidation. Is stable 7 millimeter nodule at the left lower lobe. Stabl es small pleural based nodules at the right lower lobe. No suspicious bone pulmonary nodules are see n. Pleura: No effusion or pneumothorax. Heart: The heart is not dilated. No coronary artery calcifications are seen. Aorta: Thoracic aorta non-dilated. ones: Normal. Tubes, Catheters, and Lines: Port over the left upper chest with the tip in the SVC. Abdomen and pelvic CT: There is a low-density lesion at the dome of the liver there appears to have increased when compared with the most recent exam and similar in size to the August 2019 exam.. No new liver lesions or arabella iary dilatation is seen. The spleen, pancreas, adrenals and kidneys are unremarkable. A left-sided ostomy is again noted. There is no abnormal bowel dilatation. A drainage catheter is a gain seen in the posterior pelvis. Previous rectosigmoid resection is noted. The multiple soft tiss ue areas of nodularity are again noted in the perirectal fossa. Appears to is the nodules appear to increase have increased mildly in size when compared with the previous exam by a few millimeters. Th ere is has been interval increase in size of a necrotic appearing lesion anterior to the drainage cat heter measuring 4.3 x 2.1 cm. It is difficult to separate from surrounding bowel and could represent a loop of small bowel. No oral contrast was administered which limits the exam. The bladder and uterus are unremarkable. No suspicious bony lesions are seen. IMPRESSION: No evidence of pulmonary embolism or other acute abnormality in the chest. Stable small peripheral p ulmonary nodules.. Mild interval increase in size of perirectal masses. Question an abscess collection versus loop of b owel near the end of the drainage catheter. RADIATION DOSE DELIVERED: 991.14mGy.cm Total DLP DATA REPOSITORY: All CT scans at this facility are submitted to the National Radiology Data Registry (NRDR) Dose Index Registry (DIR) with the [employer] (ACR). RADIATION OPTIMIZATION: All CT scans at this facility use at least one of these dose optimization te chniques: automated exposure control; mA and/or kV adjustment per patient size (includes targeted exa ms where dose is matched to clinical indication); or iterative reconstruction.
--- NOTE | 2020-01-21 09:58 | ED.GENADUL_ITS ---
Discharge Plan Disposition Condition: Fair Discharge Details Chief Complaint: Chest Pain Admit Date/Time: 01/21/20 14:35 Admit Provider: Liz Mabry Attending Provider: Liz Mabry Primary Care Provider: David Isabel ED Provider: Toro Enamorado Discharge Instructions Activity:: Activity as Tolerated Equipment/Supplies:: No Equipment Needed Diet:: As Tolerated Discharge Orders Discharge Orders: Discharge Order (Routine); Ordered 01/22/20 Ordered By: Tiffanie Muniz Discharge Data Discharge Date/Time-TO BE ENTERED AT DEPARTURE: 01/21/20 16:16 Medical Decision Making 9:55 --patient was transported from the infusion room to emergency department for concern for chest pain during infusion. Patient was seen immediately after arrival. 59-year-old female with history of colon cancer, on chemotherapy, also GERD, here receiving IV crystalloid infusion for dehydration, developed chest pain during infusion. Patient was given 1 sublingual nitroglycerin and chest pain improved. Concern for acute pulmonary embolism. Consider ACS. Consider pneumothorax. Screening ECG was reviewed and interpreted by me: Sinus rhythm 98 bpm, normal axis, no STEMI, S1Q3T3 is present. Plan to obtain CT of the chest to assess for acute life-threatening pulmonary embolism. Will obtain troponin as well. Patient was scheduled to have outpatient CT of her chest abdomen and pelvis. She does have some abdominal pain associated with the colon cancer. I will obtain CT of the abdomen pelvis given pain, outpatient order and attempt to reduce subsequent IV contrast load. 11:11 -- Abdomen and pelvic CT: There is a low-density lesion at the dome of the liver there appears to have increased when compared with the most recent exam and similar in size to the August 2019 exam.. No new liver lesions or biliary dilatation is seen. The spleen, pancreas, adrenals and kidneys are unremarkable. A left-sided ostomy is again noted. There is no abnormal bowel dilatation. A drainage catheter is again seen in the posterior pelvis. Previous rectosigmoid resection is noted. The multiple soft tissue areas of nodularity are again noted in the perirectal fossa. Appears to is the nodules appear to increase have increased mildly in size when compared with the previous exam by a few millimeters. There is has been interval increase in size of a necrotic appearing lesion anterior to the drainage catheter measuring 4.3 x 2.1 cm. It is difficult to separate from surrounding bowel and could represent a loop of small bowel. No oral contrast was administered which limits the exam. The bladder and uterus are unremarkable. No suspicious bony lesions are seen. IMPRESSION: No evidence of pulmonary embolism or other acute abnormality in the chest. Stable small peripheral pulmonary nodules.. Mild interval increase in size of perirectal masses. Question an abscess ramona ection versus loop of bowel near the end of the drainage catheter. Labs reviewed and normal white blood cell count noted. Mild hyponatremia and hypokalemia. Patient does have elevated creatinine and depressed GFR. Creatinine is 1.58 with GFR of 33. She has had acute renal injury in the past. She received IV fluid prior to arrival in the ED. I will give another light IV fluid bolus post contrast. Initial troponin negative. Delta troponin pending. Patient was reassessed and remained stable with no recurrent chest pain. 11:25 --I called and spoke with Dr. Moore, the patient's oncologist, he knows Jillian well. I reviewed ED course and diagnostics with him including CT findings. He notes he was concerned about potential abscess and notes that Jillian has had some intermittent low-grade fevers of recent. He recommended speaking with interventional radiology as they have been involved in the patient's case in the past. I called [facility] and requested emergent consultation with interventional radiologist. CT imaging was sent for review. 11:48 -- Spoke with interventional radiologist at [facility] who reviewed the CT imaging and feels likely progression cancer, recommends outpatient IR drainage and will discuss with Dr. Moore. HPI General Mode of arrival: ambulatory . Date/Time Provider Initiated Documentation: 01/21/20 09:41 . Limitations to Documentation: no limitations . Information obtained by: patient . HPI Narrative: 59-year-old female with history of colon cancer, currently on chemotherapy, also with history of GERD, here receiving IV fluid infusion for dehydration secondary to nausea related to chemotherapy, developed chest pain described as a burning sharp pain in the infusion room. Hospitalist responded and gave her nitroglycerin. Pain resolved after about 15 minutes. With the nitroglycerin her blood pressure did decrease from a systolic of 130 to 90. She was given an IV fluid bolus and transported to the emergency department for evaluation. Patient denies chest pain at this time. No associated shortness of breath, leg swelling or calf pain. She does have chronic abdominal pain associated with underlying disease process. She was scheduled for CT of the chest and abdomen pelvis outpatient today. Related Data Home Medications Medication Instructions Recorded Confirmed vit D3-folic lidz-V6-T3-B12 1 tab PO DAILY 06/01/19 01/21/20 Metamucil 0.5 tbsp PO TID 10/05/19 01/21/20 ostomy supplies #1 each 11/02/19 01/21/20 prochlorperazine maleate 10 mg 10 mg PO QID PRN 11/02/19 01/21/20 tablet aspirin 81 mg PO DAILY #0 tab 01/22/20 Previous Rx's Medication Instructions Recorded aspirin 81 mg PO DAILY #0 tab 01/22/20 Allergies Allergy/AdvReac Type Severity Reaction Status Date / Time morphine AdvReac Intermediate BAD DREAMS Verified 01/10/20 13:29 General Stated Complaint: Chest Pain GIULIANA: 3 Review of Systems All systems reviewed & are unremarkable except as noted in HPI and below Constitutional Constitutional: Denies fever(s) Cardiovascular Cardiovascular: Reports as per HPI and Denies dyspnea Respiratory Respiratory: Denies cough and Denies dyspnea [facility] Medical History Chronic gastritis (Acute 11/01/17) Essential (primary) hypertension (Acute) FAP (familial adenomatous polyposis) (Chronic) History of Helicobacter pylori infection (Chronic) 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 Rectal adenocarcinoma (Acute 04/25/18) Dr Ceballos Tubular adenoma (Acute) 11/23/15-DR. DALE 12/12/16-DR. DALE 11/01/16, tubular adenoma of rectal stump and anal verge, Dr Ted Ceballos -2017 tubular adenoma of rectal stump tubular adenoma anal verge Surgical History Abnormal colonoscopy (Inactive 04/25/18) Dr Ceballos, flex sigmoidoscopy Anoscopy (07/09/17) Colectomy (~1993) LARGE BOWEL reanastomosis colonoscopy (12/12/16) Colonoscopy - MAC (11/01/17) EGD - MAC (11/01/17) EGD - MAC (04/25/18) EXCISION SEBACEOUS CYST (04/11/15) LEFT POSTAURICULAR REGION H/O resection of rectum (Acute ~07/31/19) Proctectomy w/ abdominoperineal pullthrough and myocutaneous flap History of esophagogastroduodenoscopy (EGD) (Chronic 04/25/18) Dr Ceballos Sigmoidoscopy (06/01/19) 04/25/18- malignant polyp surveillance of rectal stump (12/12/16) Family History Mother Essential hypertension Father , 84 Heart disease CABG AGE 82 Prostate cancer Son FAP (familial adenomatous polyposis) Daughter Thyroid cancer Sister No problems noted. Brother No problems noted. Sister No problems noted. Sister No problems noted. Brother No problems noted. Social History Smoking/Tobacco Use Status: Never Alcohol Intake: former Drug use: Daily Substance use type: does not use Details: Household members: spouse Housing: house Communication Needs: None Do you need help understanding health information?: Rarely Pets and animals: Yes Pets and animals: cat(s) Do you think of yourself as: straight/heterosexual Current gender identity: female What is your relationship status?: How often do you talk on the phone with friends or family?: decline to answer How often do you get together with friends or relatives?: twice per week How often do you attend anabaptist or mandaen services?: 1-3 times per year Do you belong to any clubs or organized social groups?: decline to answer Panel score (0-1 are the most socially isolated patients): 1 What type of physical activity do you participate in: walking Duration: 15-30 minutes/day Frequency: 5-6 times per week Destini/Mormonism: [employer]ybeterian Special destini needs: No Seatbelt use: always Helmet use: No 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 Do you feel safe at home: Yes Do you feel safe in your relationship?: Yes History History 2 Para 2 Hx # Term Pregnancies Multiple births Hx # Pregnancies Ectopic pregnancies AB induced Hx Number of Living Children AB spontaneous Exam Const General: cooperative and no acute distress HENMT Mouth: moist mucous membranes Eyes Conjunctivae: normal conjunctivae Sclera: normal sclerae Neck Neck: trachea midline and supple Resp Auscultation: clear to auscultation bilaterally, no rales, no rhonchi and no wheezes Cardio Jugular venous pressure: no JVD Rate: regular rate and not tachycardic Rhythm: regular rhythm GI Palpation: soft, not firm, no guarding, no masses, not rigid and tender (Mild right lower abdomen) Other: Colostomy intact Skin General skin exam: no rashes or lesions noted Neuro General: patient alert, patient awake, patient oriented x3 and tone normal Extrem General: no edema Psych Appearance: grossly normal Mental Status: mental status grossly normal Course Vital Signs Vital signs: Vital Signs Temperature 36.6 C 01/21/20 09:42 Pulse 95 H 01/21/20 09:42 Respiratory Rate 15 01/21/20 09:42 Blood Pressure 110/61 01/21/20 09:42 Pulse Oximetry 99 01/21/20 09:42 Temperature 36.6 C 01/21/20 09:42 Temperature Source Skin 01/21/20 09:42 Pulse 95 H 01/21/20 09:42 Respiratory Rate 15 01/21/20 09:42 Blood Pressure 110/61 01/21/20 09:42 Blood Pressure Position Supine 01/21/20 09:42 Pulse Oximetry 99 01/21/20 09:42 Oxygen Delivery Method Room Air 01/21/20 09:42 Oxygen Flow Rate 0 01/21/20 09:42 Pain Level 0 01/21/20 09:42
[2020-01-21] MEDS: Omnipaque 350 MG/ML 100 ML BTL IV (10:07)
[2020-01-21] MEDS: Normal Saline - Diluent 50 ML VIAL IV (10:08)
[2020-01-21 10:24] LABS: Abs Immature Grans 0.05 k/cumm (0.0-0.09); Absolute Basophil Count 0.01 k/cumm (0.0-0.2); Absolute Eosinophil Count 0.06 k/cumm (0.0-0.7); Absolute Lymphocyte Count 0.93 k/cumm (1.2-3.4); Absolute Monocyte Count 1.34 k/cumm (0.11-0.7); Absolute Neutrophil Count 4.69 k/cumm (1.2-6.7); Basophils % 0.1; Eosinophils % 0.8; HCT 34.8 % (36.0-46.0); HGB 11.2 g/dL (12.0-15.5); Immature Grans % 0.7 %; Lymphocytes % 13.1; Mean Corp. HGB Concentration 32.2 g/dL (32.0-36.0); Mean Corpuscular Hemoglobin 26.5 pg (27.0-33.0); Mean Corpuscular Volume 82.5 fL (80-95); Mean Platelet Volume 9.5 fL (8.0-11.0); Monocytes % 18.9; Neutrophils % 66.4; Platelet Count 359 x1000/uL (130-400); RBC 4.22 m/cumm (4.00-5.20); RBC Distribution Width 18.1 % (11.7-14.6); White Blood Cell Count 7.08 k/cumm (4.4-10.8)
[2020-01-21 10:36] LABS: INR 1.3 (0.9-1.1); Prothrombin Time 12.8 sec (9.3-11.0)
[2020-01-21 10:39] LABS: ALT 53 U/L (14-59); AST 40 U/L (15-37); Albumin 3.1 g/dL (3.4-5.0); Alkaline Phosphatase 331 U/L (46-116); Anion Gap 7.4 mmol/L (3-11); BUN 28 mg/dL (7-18); Bilirubin, Total 0.5 mg/dL (0.2-1.0); CO2 31.6 mmol/L (21.0-32.0); CREATININE 1.58 mg/dL (0.55-1.02); Calcium 9.7 mg/dL (8.5-10.1); Chloride 89 mmol/L (98-107); Estimated GFR 33.47 (mL/min/1.73m2); Glucose 94 mg/dL (74-106); Potassium 3.4 mmol/L (3.5-5.1); Sodium 128 mmol/L (136-145); Total Protein 8.5 g/dL (6.4-8.2)
[2020-01-21 10:40] LABS: Troponin I < 0.05 ng/mL (<0.06)
[2020-01-21] MEDS: Normal Saline 500 ML IV (11:16)
[2020-01-21] MEDS: POTASSIUM CHLORIDE 20 MEQ/100 ML BAG 50 MEQ IVPB (12:05)
[2020-01-21 13:47] LABS: Troponin I < 0.05 ng/mL (<0.06)
[2020-01-21 17:11] LABS: Troponin I < 0.05 ng/mL (<0.06)
[2020-01-21] MEDS: Aspirin E.C. 325 MG TABEC PO (17:36)
[2020-01-21] MEDS: Enoxaparin 40 MG/0.4 ML SYR SC (17:36)
[2020-01-21] MEDS: Normal Saline Flush 10 ML SYR IVP ×2 (17:37→21:28)
[2020-01-21] MEDS: Pantoprazole 40 MG VIAL IVP (17:37)
--- NOTE | 2020-01-21 18:06 | W.PM.HP.N ---
Date of service: 01/21/20 Time of Service: 18:06 Assessment and Plan Assessment and plan (1) Chest pain: Status: Acute Assessment and plan: Responded to nitroglycerin, with dynamic EKG changes but no elevations in troponins so far. Recheck troponin tonight. Check lipids and EKG in am. Start asa. Will likely be able to discharge the patient home tomorrow morning with outpatient stress test. (2) Dehydration: Status: Acute Assessment and plan: Will hydrate gently overninght (3) Hyponatremia: Status: Acute Assessment and plan: Most likely due to dehydration - recheck in am after hydrating overnight with NS (4) Hypokalemia: Status: Acute Assessment and plan: Repleted - recheck in am (5) Rectal adenocarcinoma: Status: Acute Assessment and plan: increase in size of mass noted on CT with associated fluid collection. Patient will follow up with [facility] for probable additional drainage. (6) Colon cancer: Status: Chronic Assessment and plan: on chemo with FOLFOX. As above (7) Pelvic abscess: Status: Acute Assessment and plan: s/p IR drain. Not currently on antibiotics. Will follow up with IR - patient already has an appointment. (8) DVT prophylaxis: Status: Acute Assessment and plan: lovenox sc (9) Discharge planning issues: Status: Acute Assessment and plan: Full code Anticipated discharge home tomorrow. History of Present Illness History of Present Illness Chief Complaint: chest pain Narrative: Ms Yost is a 59 year old female with PMHx of FAP, stage 3 rectal adenocarcinoma, colon ca, s/p total proctoolectomy with ileostomy, on FOLFOX chemotherapy, pelvic abscess s/p IR drain, desmoid tumor, who has been receiving IV hydration at [facility] infusion center between her chemotherapy sessions. This morning she had a sudden onset of midsternal chest pain, both dull and burning in character, while receiving NS in the infusion room. She denied dizziness, radiation, palpitations, nausea. Patient evaluated at the time of chest pain - had stable vital signs. Received 1 dose of sublingual nitroglycerin with which her chest pain resolved, but SBP dropped from 130's to 90's. Her 1st EKG showed nonspecific ST-T changes diffused, 2nd done minutes later revealed borderline S1Q3T3, with otherwise no acute ischemia. Her 3rd EKG showed T wave inversions in V1-V3. Troponins were negative, and CTA of the chest was negative for PE. She was found to be mildly hypokalemic. Case was discussed with cardiology, who felt the patient could safely stay here for observation and complete outpatient stress test. Jillian is pain free on my evaluation after her visit to ED and excited about dinner. Review of Systems Narrative: 12 systems reviewed. Pertinent positives and negatives are as per HPI. [facility] Medical History Chronic gastritis (Acute 11/01/17) Essential (primary) hypertension (Acute) FAP (familial adenomatous polyposis) (Chronic) History of Helicobacter pylori infection (Chronic) 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 Rectal adenocarcinoma (Acute 04/25/18) Dr Ceballos Tubular adenoma (Acute) 11/23/15-DR. DALE 12/12/16-DR. DALE 11/01/16, tubular adenoma of rectal stump and anal verge, Dr Ted Ceballos -2017 tubular adenoma of rectal stump tubular adenoma anal verge Surgical History Abnormal colonoscopy (Inactive 04/25/18) Dr Ceballos, flex sigmoidoscopy Anoscopy (07/09/17) Colectomy (~1993) LARGE BOWEL reanastomosis colonoscopy (12/12/16) Colonoscopy - MAC (11/01/17) EGD - MAC (11/01/17) EGD - MAC (04/25/18) EXCISION SEBACEOUS CYST (04/11/15) LEFT POSTAURICULAR REGION H/O resection of rectum (Acute ~07/31/19) Proctectomy w/ abdominoperineal pullthrough and myocutaneous flap History of esophagogastroduodenoscopy (EGD) (Chronic 04/25/18) Dr Ceballos Sigmoidoscopy (06/01/19) 04/25/18- malignant polyp surveillance of rectal stump (12/12/16) Family History Mother Essential hypertension Father , 84 Heart disease CABG AGE 82 Prostate cancer Son FAP (familial adenomatous polyposis) Daughter Thyroid cancer Sister No problems noted. Brother No problems noted. Sister No problems noted. Sister No problems noted. Brother No problems noted. Social History Smoking/Tobacco Use Status: Never Alcohol Intake: former Drug use: Daily Substance use type: does not use Details: Household members: spouse Housing: house Communication Needs: None Do you need help understanding health information?: Rarely Pets and animals: Yes Pets and animals: cat(s) Do you think of yourself as: straight/heterosexual Current gender identity: female What is your relationship status?: How often do you talk on the phone with friends or family?: decline to answer How often do you get together with friends or relatives?: twice per week How often do you attend hindu or buddhism services?: 1-3 times per year Do you belong to any clubs or organized social groups?: decline to answer Panel score (0-1 are the most socially isolated patients): 1 What type of physical activity do you participate in: walking Duration: 15-30 minutes/day Frequency: 5-6 times per week Destini/Spiritism: Baptism Special destini needs: No Seatbelt use: always Helmet use: No 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 Meds Home Medications and Allergies Home Medications Medication Instructions Recorded Confirmed Type vit D3-folic kygr-L0-D3-B12 1 tab PO DAILY 06/01/19 01/21/20 History Metamucil 0.5 tbsp PO TID 10/05/19 01/21/20 History ostomy supplies #1 each 11/02/19 01/21/20 History prochlorperazine maleate 10 mg 10 mg PO QID PRN 11/02/19 01/21/20 History tablet Allergies Allergy/AdvReac Type Severity Reaction Status Date / Time morphine AdvReac Intermediate BAD DREAMS Verified 05/17/20 13:29 Exam Narrative Exam Narrative: General: Very pleasant middle-aged female, seen twice today - first anxious/in pain, now very relaxed in bed, doing cross-stitching Neurological: A&Ox3, no focal deficits Psychiatric: Initially very anxious, now very calm/pleasant/appropriate speech pattern/content Skin: pale, dry, intact HEENT: Atraumatic, normocephalic, EOMI, MMM, clear oropharynx, no lymphadenopathy, goiter or JVD Cardiovascular: RRR, no m/r/g Lungs: CTAB Gastrointestinal: Soft, nontender, nondistended; +ileostomy with ligh brown stool; +pelvic drain with dark green/brownish liquid Genitourinary: deferred Extremities: no edema BLE's Results Imaging Additional studies: CTA chest/abdomen/pelvis: No evidence of pulmonary embolism or other acute abnormality in the chest. Stable small peripheral pulmonary nodules.. Mild interval increase in size of perirectal masses. Question an abscess collection versus loop of bowel near the end of the drainage catheter. Labs Result diagrams: 01/21/20 10:10 01/21/20 10:10 Labs: Laboratory Results - last 24 hr 01/21/20 01/21/20 01/21/20 10:10 10:10 10:10 WBC 7.08 RBC 4.22 Hgb 11.2 L Hct 34.8 L MCV 82.5 MCH 26.5 L MCHC 32.2 RDW 18.1 H Plt Count 359 MPV 9.5 Immature Gran % 0.7 Neutrophils % 66.4 Lymphocytes % 13.1 Monocytes % 18.9 Eosinophils % 0.8 Basophils % 0.1 Absolute Neutrophils 4.69 Absolute Lymphocytes 0.93 L Absolute Monocytes 1.34 H Absolute Eosinophils 0.06 Absolute Basophils 0.01 PT 12.8 H INR 1.3 H Sodium 128 L Potassium 3.4 L Chloride 89 L Carbon Dioxide 31.6 Anion Gap 7.4 BUN 28 H Creatinine 1.58 H Estimated GFR/1.73 m2 33.47 Glucose 94 Calcium 9.7 Magnesium Total Bilirubin 0.5 AST 40 H ALT 53 Alkaline Phosphatase 331 H Troponin I < 0.05 Total Protein 8.5 H Albumin 3.1 L 01/21/20 01/21/20 12:45 14:27 WBC RBC Hgb Hct MCV MCH MCHC RDW Plt Count MPV Immature Gran % Neutrophils % Lymphocytes % Monocytes % Eosinophils % Basophils % Absolute Neutrophils Absolute Lymphocytes Absolute Monocytes Absolute Eosinophils Absolute Basophils PT INR Sodium Potassium Chloride Carbon Dioxide Anion Gap BUN Creatinine Estimated GFR/1.73 m2 Glucose Calcium Magnesium 2.0 Total Bilirubin AST ALT Alkaline Phosphatase Troponin I < 0.05 < 0.05 Total Protein Albumin Last Vital Signs Temp 37 C 01/21/20 16:42 Pulse 81 01/21/20 16:42 Resp 18 01/21/20 16:42 BP 105/70 01/21/20 16:42 Pulse Ox 99 01/21/20 16:42 COVID-19 Screening In the past 14 days, have you traveled outside of [place] or [place]?: NO Had IN PERSON contact w/suspected or confirmed C-19 person: No
[2020-01-21] MEDS: Psyllium PKT 0.5 EACH PO (19:22)
[2020-01-21 20:26] LABS: Troponin I < 0.05 ng/mL (<0.06)
[2020-01-21] MEDS: Heparin 500 UNITS/5 ML SYRINGE (21:27)
--- NOTE | 2020-01-21 21:48 | NUR.NOTE ---
Nursing Note: Pt requested to de accessed port on left chest. flushed w/ NS and patent but no blood return., followed up w/ heparin flushed then removed., covered w/ bandaid.. Pt was delighted. Refused to empty the SHILA drain, pt stated that she perform the draining every 12 hrs., its due at 0700 am. , Also ,, pt is independent in her colostomy care. Denied of chest pain since admission. Call lights at reach.
[2020-01-22 03:51] VITALS: BP 99/71; PULSE 75; RESP 16; TEMP 37.1; O2SAT 99
[2020-01-22] MEDS: Normal Saline 1,000 ML 100 ML IV (04:40)
[2020-01-22] MEDS: Normal Saline Flush 10 ML SYR IVP (04:47)
[2020-01-22 06:59] LABS: Abs Immature Grans 0.02 k/cumm (0.0-0.09); Absolute Basophil Count 0.01 k/cumm (0.0-0.2); Absolute Eosinophil Count 0.06 k/cumm (0.0-0.7); Absolute Lymphocyte Count 0.86 k/cumm (1.2-3.4); Absolute Monocyte Count 1.12 k/cumm (0.11-0.7); Absolute Neutrophil Count 4.87 k/cumm (1.2-6.7); Basophils % 0.1; Eosinophils % 0.9; HCT 31.9 % (36.0-46.0); HGB 10.2 g/dL (12.0-15.5); Immature Grans % 0.3 %; Lymphocytes % 12.4; Mean Corpuscular Hemoglobin 26.8 pg (27.0-33.0); Mean Corpuscular Volume 83.9 fL (80-95); Mean Platelet Volume 9.4 fL (8.0-11.0); Monocytes % 16.1; Neutrophils % 70.2; Platelet Count 363 x1000/uL (130-400); RBC Distribution Width 18.3 % (11.7-14.6); White Blood Cell Count 6.94 k/cumm (4.4-10.8)
[2020-01-22 07:02] VITALS: PULSE 85
[2020-01-22 07:22] LABS: BUN 24 mg/dL (7-18); CREATININE 1.53 mg/dL (0.55-1.02); Calcium 9.2 mg/dL (8.5-10.1); Calculated LDL 59 mg/dL (<100); Chloride 92 mmol/L (98-107); Cholesterol 169 mg/dL (<200); Estimated GFR 34.74 (mL/min/1.73m2); Glucose 120 mg/dL (74-106); HDL Cholesterol 94 mg/dL (40-60); Magnesium 1.8 mg/dL (1.8-2.4); Sodium 129 mmol/L (136-145); TSH (W/Ref FT4) 0.52 uIU/mL (0.36-3.74); Triglyceride 80 mg/dL (<150)
[2020-01-22 07:26] LABS: Troponin I < 0.05 ng/mL (<0.06)
[2020-01-22] MEDS: Psyllium PKT 0.5 EACH PO (07:31)
[2020-01-22 08:03] LABS: COVID-19 RT-PCR UVMMC Result Negative (Negative)
--- NOTE | 2020-01-22 08:28 | W.PM.DS.N ---
Documented by User: Tiffanie Muniz NP 01/22/20 09:10 Date of service: 01/22/20 Time of Service: 08:28 DS: Diagnosis Discharge Diagnosis (1) Chest pain: Status: Acute (2) Dehydration: Status: Acute (3) Hyponatremia: Status: Acute (4) Hypokalemia: Status: Acute (5) Rectal adenocarcinoma: Status: Acute (6) Colon cancer: Status: Chronic (7) Pelvic abscess: Status: Acute Discharge Plan Disposition Patient Disposition: HOME Condition: Fair Discharge Details Chief Complaint: Chest Pain Reason For Visit: CHEST PAIN, EKG CHANGES Admit Date/Time: 01/21/20 14:35 Admit Provider: Liz Mabry Attending Provider: Liz Mabry Primary Care Provider: David Isabel ED Provider: [facility] Course Hospital Course: Ms Yost is a 59 year old female with PMHx of FAP, stage 3 rectal adenocarcinoma, colon ca, s/p total proctocolectomy with ileostomy, on FOLFOX chemotherapy, pelvic abscess s/p IR drain, desmoid tumor, who has been receiving IV hydration at [facility] infusion center between her chemotherapy sessions. Yesterday, she developed midsternal chest pain, both dull and burning in character, while receiving NS in the infusion room. She denied dizziness, radiation, palpitations, nausea. Patient was evaluated at the time of chest pain - had stable vital signs. Received 1 dose of sublingual nitroglycerin with which her chest pain resolved, but SBP dropped from 130's to 90's. Her 1st EKG showed nonspecific ST-T changes, 2nd done minutes later revealed borderline S1Q3T3, with otherwise no acute ischemia. Her 3rd EKG showed T wave inversions in V1-V3. Troponins were negative, and CTA of the chest was negative for PE. She was found to be mildly hypokalemic. Case was discussed with cardiology, who felt the patient could safely stay here for observation and complete outpatient stress test. Overnight she remained chest pain free and hemodynamically stable. There were no arrhythmic events on telemetry. She is being discharged home today with an order for outpatient stress test. On CT imaging of her abdomen/pelvis, there was a question of an abscess collection vs loop of bowel near the end of her pelvic abscess drainage catheter. IR was consulted by ED provider, and it was determined to be stable for outpatient follow up. Ms Yost remains off antibiotics and stable for discharge home today with that follow up. Home Meds and New Rx's Prescriptions: New aspirin 81 mg Tablet,Delayed Release (Dr/Ec) 81 mg PO DAILY Qty: 0 RF: 0 Continued (DME) ostomy supplies Misc See Rx Instructions .ROUTE .MEDSUPPLY Qty: 1 RF: 0 prochlorperazine maleate [Compazine] 10 mg tablet 10 mg PO QID PRNRF: 0 Metamucil 3.4 gram/5.4 gram Powder 0.5 tbsp PO TID RF: 0 vit D3-folic [id number] 2,000-800-0.32 unit-mcg-mg Tablet 1 tab PO DAILY RF: 0 Discharge Instructions Instructions: Chest Pain (DC) Additional Instructions: return to ED for new or worsening symptoms. you will need further outpatient cardiology evaluation including stress test. Stand Alone Forms: Nursing Discharge Form Referrals: [facility] [Outside] (IR follow up for pelvic abscess) David Isabel [Primary Care Provider] - 02/06/20 9:40 am Brad Lau [ NON-[facility] STAFF PHYSICIAN] - (left pelvic necrotic tumor vs abscess) Glen Moore MD [MD CONSULTING PHYSICIAN] - Activity:: Activity as Tolerated Equipment/Supplies:: No Equipment Needed Diet:: As Tolerated Discharge Orders Discharge Orders: Discharge Order (Routine); Ordered 01/22/20 Ordered By: Tiffanie Muniz Other Ambulatory Orders: NM MPI rest & stress grp (Routine) Location: None Selected Ordered By: Tiffanie Muniz Discharge Data Discharge Date/Time-TO BE ENTERED AT DEPARTURE: 01/22/20 09:40 DS: Data Vitals/I&O Vitals and I&O: Vital Signs Temperature 37.1 C 01/22/20 03:51 Temperature Source Tympanic 01/22/20 03:51 Pulse 75 01/22/20 03:51 Pulse Rhythm Regular 01/22/20 07:14 Pulse 81 01/21/20 15:51 Respiratory Rate 16 01/22/20 03:51 Respiratory Effort Non-Labored 01/22/20 07:14 Respiratory Depth Normal 01/22/20 07:14 Respiratory Pattern Normal 01/22/20 07:14 Blood Pressure 99/71 L 01/22/20 03:51 Blood Pressure Mean 63 01/21/20 15:51 Blood Pressure Position Supine 01/21/20 09:42 Pulse Oximetry 99 01/22/20 03:51 Oxygen Delivery Method Room Air 01/22/20 03:51 Oxygen Flow Rate 0 01/22/20 03:51 Pain Level 0 01/21/20 23:30 Intake & Output 01/21/20 01/21/20 01/22/20 11:59 23:59 11:59 Intake Total 600 / 600 Output Total 200 / 200 100 / 100 Balance 400 / 400 -100 / -100 Weight 61.689 kg 61.689 kg 68.2 kg Intake: IV 600 / 600 Output: Urine 200 / 200 100 / 100 Other: Urine Color Yellow Yellow Urine Appearance Clear Clear Stool Size Large Stool Characteristics Liquid Voiding Methods Toilet Toilet Data Completed and Pending Labs on day of discharge: Labs from last 24 hours 01/22/20 01/22/20 01/22/20 06:37 06:33 06:32 WBC 6.94 RBC 3.80 L Hgb 10.2 L Hct 31.9 L MCV 83.9 MCH 26.8 L MCHC 32.0 RDW 18.3 H Plt Count 363 MPV 9.4 Immature Gran % 0.3 Neutrophils % 70.2 Lymphocytes % 12.4 Monocytes % 16.1 Eosinophils % 0.9 Basophils % 0.1 Absolute Neutrophils 4.87 Absolute Lymphocytes 0.86 L Absolute Monocytes 1.12 H Absolute Eosinophils 0.06 Absolute Basophils 0.01 PT INR Sodium 129 L Potassium 4.0 Chloride 92 L Carbon Dioxide 31.0 Anion Gap 6.0 BUN 24 H Creatinine 1.53 H Estimated GFR/1.73 m2 34.74 Glucose 120 H Hemoglobin A1c 6.0 H Calcium 9.2 Magnesium 1.8 Total Bilirubin AST ALT Alkaline Phosphatase Troponin I < 0.05 Total Protein Albumin Triglycerides 80 Total Cholesterol 169 LDL Cholesterol, Calc 59 HDL Cholesterol 94 TSH 0.52 COVID-19 PCR Nasopharyn COVID-19 PCR Ref Test Perform Site 01/21/20 01/21/20 01/21/20 20:00 16:05 14:27 WBC RBC Hgb Hct MCV MCH MCHC RDW Plt Count MPV Immature Gran % Neutrophils % Lymphocytes % Monocytes % Eosinophils % Basophils % Absolute Neutrophils Absolute Lymphocytes Absolute Monocytes Absolute Eosinophils Absolute Basophils PT INR Sodium Potassium Chloride Carbon Dioxide Anion Gap BUN Creatinine Estimated GFR/1.73 m2 Glucose Hemoglobin A1c Calcium Magnesium Total Bilirubin AST ALT Alkaline Phosphatase Troponin I < 0.05 < 0.05 Total Protein Albumin Triglycerides Total Cholesterol LDL Cholesterol, Calc HDL Cholesterol TSH COVID-19 PCR Negative Nasopharyn COVID-19 PCR Not Applicable Ref Test Perform Site [facility] 01/21/20 01/21/20 01/21/20 12:45 10:10 10:10 WBC 7.08 RBC 4.22 Hgb 11.2 L Hct 34.8 L MCV 82.5 MCH 26.5 L MCHC 32.2 RDW 18.1 H Plt Count 359 MPV 9.5 Immature Gran % 0.7 Neutrophils % 66.4 Lymphocytes % 13.1 Monocytes % 18.9 Eosinophils % 0.8 Basophils % 0.1 Absolute Neutrophils 4.69 Absolute Lymphocytes 0.93 L Absolute Monocytes 1.34 H Absolute Eosinophils 0.06 Absolute Basophils 0.01 PT 12.8 H INR 1.3 H Sodium Potassium Chloride Carbon Dioxide Anion Gap BUN Creatinine Estimated GFR/1.73 m2 Glucose Hemoglobin A1c Calcium Magnesium 2.0 Total Bilirubin AST ALT Alkaline Phosphatase Troponin I < 0.05 Total Protein Albumin Triglycerides Total Cholesterol LDL Cholesterol, Calc HDL Cholesterol TSH COVID-19 PCR Nasopharyn COVID-19 PCR Ref Test Perform Site 01/21/20 10:10 WBC RBC Hgb Hct MCV MCH MCHC RDW Plt Count MPV Immature Gran % Neutrophils % Lymphocytes % Monocytes % Eosinophils % Basophils % Absolute Neutrophils Absolute Lymphocytes Absolute Monocytes Absolute Eosinophils Absolute Basophils PT INR Sodium 128 L Potassium 3.4 L Chloride 89 L Carbon Dioxide 31.6 Anion Gap 7.4 BUN 28 H Creatinine 1.58 H Estimated GFR/1.73 m2 33.47 Glucose 94 Hemoglobin A1c Calcium 9.7 Magnesium Total Bilirubin 0.5 AST 40 H ALT 53 Alkaline Phosphatase 331 H Troponin I < 0.05 Total Protein 8.5 H Albumin 3.1 L Triglycerides Total Cholesterol LDL Cholesterol, Calc HDL Cholesterol TSH COVID-19 PCR Nasopharyn COVID-19 PCR Ref Test Perform Site [facility] Medical History Chronic gastritis (Acute 11/01/17) Essential (primary) hypertension (Acute) FAP (familial adenomatous polyposis) (Chronic) History of Helicobacter pylori infection (Chronic) 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 Rectal adenocarcinoma (Acute 04/25/18) Dr Ceballos Tubular adenoma (Acute) 11/23/15-DR. DALE 12/12/16-DR. DALE 11/01/16, tubular adenoma of rectal stump and anal verge, Dr Ted Ceballos -2017 tubular adenoma of rectal stump tubular adenoma anal verge Surgical History Abnormal colonoscopy (Inactive 04/25/18) Dr Ceballos, flex sigmoidoscopy Anoscopy (07/09/17) Colectomy (~1993) LARGE BOWEL reanastomosis colonoscopy (12/12/16) Colonoscopy - MAC (11/01/17) EGD - MAC (11/01/17) EGD - MAC (04/25/18) EXCISION SEBACEOUS CYST (04/11/15) LEFT POSTAURICULAR REGION H/O resection of rectum (Acute ~07/31/19) Proctectomy w/ abdominoperineal pullthrough and myocutaneous flap History of esophagogastroduodenoscopy (EGD) (Chronic 04/25/18) Dr Ceballos Sigmoidoscopy (06/01/19) 04/25/18- malignant polyp surveillance of rectal stump (12/12/16) Family History Mother Essential hypertension Father , 84 Heart disease CABG AGE 82 Prostate cancer Son FAP (familial adenomatous polyposis) Daughter Thyroid cancer Sister No problems noted. Brother No problems noted. Sister No problems noted. Sister No problems noted. Brother No problems noted. Social History Smoking/Tobacco Use Status: Never Alcohol Intake: former Drug use: Daily Substance use type: does not use Details: Household members: spouse Housing: house Communication Needs: None Do you need help understanding health information?: Rarely Pets and animals: Yes Pets and animals: cat(s) Do you think of yourself as: straight/heterosexual Current gender identity: female What is your relationship status?: How often do you talk on the phone with friends or family?: decline to answer How often do you get together with friends or relatives?: twice per week How often do you attend mandaen or christian services?: 1-3 times per year Do you belong to any clubs or organized social groups?: decline to answer Panel score (0-1 are the most socially isolated patients): 1 What type of physical activity do you participate in: walking Duration: 15-30 minutes/day Frequency: 5-6 times per week Destini/Jain: Jain Special destini needs: No Seatbelt use: always Helmet use: No Drive intox or ride w/intox delivery route 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 Documented by User: Liz Mabry MD 01/22/20 09:54 Discharge Plan Disposition Patient Disposition: HOME Condition: Fair Discharge Details Chief Complaint: Chest Pain Reason For Visit: CHEST PAIN, EKG CHANGES Admit Date/Time: 01/21/20 14:35 Admit Provider: Liz Mabry Attending Provider: Liz Mabry Primary Care Provider: David Isabel [facility] Course: Ms Yost is a 59 year old female with PMHx of FAP, stage 3 rectal adenocarcinoma, colon ca, s/p total proctocolectomy with ileostomy, on FOLFOX chemotherapy, pelvic abscess s/p IR drain, desmoid tumor, who has been receiving IV hydration at [facility] infusion center between her chemotherapy sessions. Yesterday, she developed midsternal chest pain, both dull and burning in character, while receiving NS in the infusion room. She denied dizziness, radiation, palpitations, nausea. Patient was evaluated at the time of chest pain - had stable vital signs. Received 1 dose of sublingual nitroglycerin with which her chest pain resolved, but SBP dropped from 130's to 90's. Her 1st EKG showed nonspecific ST-T changes, 2nd done minutes later revealed borderline S1Q3T3, with otherwise no acute ischemia. Her 3rd EKG showed T wave inversions in V1-V3. Troponins were negative, and CTA of the chest was negative for PE. She was found to be mildly hypokalemic. Case was discussed with cardiology, who felt the patient could safely stay here for observation and complete outpatient stress test. Overnight she remained chest pain free and hemodynamically stable. There were no arrhythmic events on telemetry. She is being discharged home today with an order for outpatient stress test. On CT imaging of her abdomen/pelvis, there was a question of an abscess collection vs loop of bowel near the end of her pelvic abscess drainage catheter. IR was consulted by ED provider, and it was determined to be stable for outpatient follow up. Ms Yost remains off antibiotics and stable for discharge home today with that follow up. Home Meds and New Rx's Prescriptions: New aspirin 81 mg Tablet,Delayed Release (Dr/Ec) 81 mg PO DAILY Qty: 0 RF: 0 Continued (DME) ostomy supplies Misc See Rx Instructions .ROUTE .MEDSUPPLY Qty: 1 RF: 0 prochlorperazine maleate [Compazine] 10 mg tablet 10 mg PO QID PRNRF: 0 Metamucil 3.4 gram/5.4 gram Powder 0.5 tbsp PO TID RF: 0 vit D3-folic [id number] 2,000-800-0.32 unit-mcg-mg Tablet 1 tab PO DAILY RF: 0 Discharge Instructions Instructions: Chest Pain (DC) Additional Instructions: return to ED for new or worsening symptoms. you will need further outpatient cardiology evaluation including stress test. Stand Alone Forms: Nursing Discharge Form Referrals: [facility] [Outside] (IR follow up for pelvic abscess) David Isabel [Primary Care Provider] - 02/06/20 9:40 am Brad Lau [ NON-[facility] STAFF PHYSICIAN] - (left pelvic necrotic tumor vs abscess) Glen Moore MD [ CONSULTING PHYSICIAN] - Activity:: Activity as Tolerated Equipment/Supplies:: No Equipment Needed Diet:: As Tolerated Discharge Orders Discharge Orders: Discharge Order (Routine); Ordered 01/22/20 Ordered By: Tiffanie Muniz Other Ambulatory Orders: NM [facility] rest & stress grp (Routine) Location: None Selected Ordered By: Tiffanie Muniz Discharge Data Discharge Date/Time-TO BE ENTERED AT DEPARTURE: 01/22/20 09:40 DS: Summary Status at Discharge Functional status at discharge: independent ambulation Overall status at discharge: patient is back to baseline Mental Status: mental status grossly normal Speech and Movement: speech and movement normal Mood: congruent mood Affect: normal affect Exam Narrative Exam Narrative: General: Very pleasant middle-aged female, laying comfortably in bed HEENT: Atraumatic, normocephalic, EOMI, MMM Cardiovascular: RRR, no m/r/g Lungs: CTAB Gastrointestinal: Soft, nontender, nondistended; +ileostomy with ligh brown stool; +pelvic drain with dark green/brownish liquid Extremities: no edema BLE's Psych Mental Status: mental status grossly normal Speech and Movement: speech and movement normal Mood: congruent mood Affect: normal affect DS: Data Data Completed and Pending Completed studies during hospitalization [Text1]: CT chest/abdomen/pelvis 01/21/2020: No evidence of pulmonary embolism or other acute abnormality in the chest. Stable small peripheral pulmonary nodules.. Mild interval increase in size of perirectal masses. Question an abscess collection versus loop of bowel near the end of the drainage catheter. [facility] Medical History Chronic gastritis (Acute 11/01/17) Essential (primary) hypertension (Acute) FAP (familial adenomatous polyposis) (Chronic) History of Helicobacter pylori infection (Chronic) 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 Rectal adenocarcinoma (Acute 04/25/18) Dr Ceballos Tubular adenoma (Acute) 11/23/15-DR. DALE 12/12/16-DR. DALE 11/01/16, tubular adenoma of rectal stump and anal verge, Dr Ted Ceballos tubular adenoma of rectal stump tubular adenoma anal verge Surgical History Abnormal colonoscopy (Inactive 04/25/18) Dr Ceballos, flex sigmoidoscopy Anoscopy (07/09/17) Colectomy (~1993) LARGE BOWEL reanastomosis colonoscopy (12/12/16) Colonoscopy - MAC (11/01/17) EGD - MAC (11/01/17) EGD - MAC (04/25/18) EXCISION SEBACEOUS CYST (04/11/15) LEFT POSTAURICULAR REGION H/O resection of rectum (Acute ~07/31/19) Proctectomy w/ abdominoperineal pullthrough and myocutaneous flap History of esophagogastroduodenoscopy (EGD) (Chronic 04/25/18) Dr Ceballos Sigmoidoscopy (06/01/19) 04/25/18- malignant polyp surveillance of rectal stump (12/12/16) Family History Mother Essential hypertension Father , 84 Heart disease CABG AGE 82 Prostate cancer Son FAP (familial adenomatous polyposis) Daughter Thyroid cancer Sister No problems noted. Brother No problems noted. Sister No problems noted. Sister No problems noted. Brother No problems noted. Social History Smoking/Tobacco Use Status: Never Alcohol Intake: former Drug use: Daily Substance use type: does not use Details: Household members: spouse Housing: house Communication Needs: None Do you need help understanding health information?: Rarely Pets and animals: Yes Pets and animals: cat(s) Do you think of yourself as: straight/heterosexual Current gender identity: female What is your relationship status?: How often do you talk on the phone with friends or family?: decline to answer How often do you get together with friends or relatives?: twice per week How often do you attend mandaen or christian services?: 1-3 times per year Do you belong to any clubs or organized social groups?: decline to answer Panel score (0-1 are the most socially isolated patients): 1 What type of physical activity do you participate in: walking Duration: 15-30 minutes/day Frequency: 5-6 times per week Destini/Jain: Jain Special destini needs: No Seatbelt use: always Helmet use: No Drive intox or ride w/intox delivery route 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
[2020-01-22] MEDS: Aspirin E.C. 81 MG TABEC PO (09:19)
[2020-01-22 09:31] VITALS: PULSE 96
== END 2020-01-22 09:40 | disposition home or self-care (01) ==
LOC: ER 14:51 → MS 16:22
PROVIDERS: Admitting Provider Internal Medicine; Emergency Provider Student in an Organized Health Care Education/Training Program; PCP Family Medicine; Visit Provider Internal Medicine
DX: R07.9 Chest pain, unspecified (principal); R94.31 Abnormal electrocardiogram [ECG] [EKG]; E87.6 Hypokalemia; E86.0 Dehydration; R93.5 Abnormal findings on diagnostic imaging of other abdominal regions, including retroperitoneum; E87.1 Hypo-osmolality and hyponatremia; C20 Malignant neoplasm of rectum; N73.0 Acute parametritis and pelvic cellulitis; Z90.49 Acquired absence of other specified parts of digestive tract; Z79.899 Other long term (current) drug therapy; D48.1 Neoplasm of uncertain behavior of connective and other soft tissue
CPT/HCPCS: 36415; 71275; 74177; 80048; 80053; 80061; 93005; 96361; 96365; 96366; 99217; 99220; 99285; J1650; U0003; 83036; 83735; 84443; 84484; 85025; 85610; 93010; G0378; J3480; J3490

== ENCOUNTER 2020-02-21 04:08 | Outpatient (RCR) | payer OTHER, SELFPAY ==
[2020-02-05] MEDS: Normal Saline Flush 10 ML SYR IVP (10:00)
[2020-02-05] MEDS: Heparin 500 UNITS/5 ML SYRINGE IV (10:01)
[2020-02-05 10:07] LABS: Abs Immature Grans 0.04 k/cumm (0.0-0.09); Absolute Basophil Count 0.02 k/cumm (0.0-0.2); Absolute Eosinophil Count 0.05 k/cumm (0.0-0.7); Absolute Lymphocyte Count 0.81 k/cumm (1.2-3.4); Absolute Neutrophil Count 9.01 k/cumm (1.2-6.7); Basophils % 0.2; Eosinophils % 0.5; HCT 33.6 % (36.0-46.0); Immature Grans % 0.4 %; Lymphocytes % 7.4; Mean Corp. HGB Concentration 32.7 g/dL (32.0-36.0); Mean Corpuscular Hemoglobin 27.4 pg (27.0-33.0); Mean Corpuscular Volume 83.8 fL (80-95); Mean Platelet Volume 9.9 fL (8.0-11.0); Monocytes % 9.1; Neutrophils % 82.4; Platelet Count 420 x1000/uL (130-400); RBC 4.01 m/cumm (4.00-5.20); RBC Distribution Width 17.5 % (11.7-14.6); White Blood Cell Count 10.93 k/cumm (4.4-10.8)
[2020-02-05 10:08] LABS: Absolute Monocyte Count 0.99 k/cumm (0.11-0.7)
[2020-02-05 10:22] LABS: ALT 22 U/L (14-59); AST 39 U/L (15-37); Albumin 3.3 g/dL (3.4-5.0); Alkaline Phosphatase 167 U/L (46-116); BUN 26 mg/dL (7-18); Bilirubin, Total 0.3 mg/dL (0.2-1.0); CREATININE 1.25 mg/dL (0.55-1.02); Calcium 9.5 mg/dL (8.5-10.1); Chloride 90 mmol/L (98-107); Estimated GFR 43.87 (mL/min/1.73m2); Glucose 122 mg/dL (74-106); Potassium 4.2 mmol/L (3.5-5.1); Sodium 128 mmol/L (136-145); Total Protein 8.3 g/dL (6.4-8.2)
[2020-02-07] MEDS: Normal Saline 1,000 ML 999 ML IV (13:05)
[2020-02-07] MEDS: Normal Saline Flush 10 ML SYR IVP (13:31)
[2020-02-08 10:16] LABS: CEA 22.6 ng/mL (See Note)
[2020-02-13] MEDS: Normal Saline 1,000 ML 600 ML IV (10:30)
[2020-02-13] MEDS: Heparin 500 UNITS/5 ML SYRINGE IV (10:52)
[2020-02-13] MEDS: Normal Saline Flush 10 ML SYR IVP (10:52)
[2020-02-19 08:40] LABS: Abs Immature Grans 0.01 k/cumm (0.0-0.09); Absolute Basophil Count 0.02 k/cumm (0.0-0.2); Absolute Eosinophil Count 0.06 k/cumm (0.0-0.7); Absolute Lymphocyte Count 0.76 k/cumm (1.2-3.4); Absolute Monocyte Count 0.73 k/cumm (0.11-0.7); Absolute Neutrophil Count 6.98 k/cumm (1.2-6.7); Basophils % 0.2; Eosinophils % 0.7; HCT 35.4 % (36.0-46.0); HGB 11.5 g/dL (12.0-15.5); Immature Grans % 0.1 %; Lymphocytes % 8.9; Mean Corp. HGB Concentration 32.5 g/dL (32.0-36.0); Mean Corpuscular Hemoglobin 27.4 pg (27.0-33.0); Mean Corpuscular Volume 84.3 fL (80-95); Mean Platelet Volume 8.8 fL (8.0-11.0); Monocytes % 8.5; Neutrophils % 81.6; Platelet Count 389 x1000/uL (130-400); White Blood Cell Count 8.56 k/cumm (4.4-10.8)
[2020-02-19] MEDS: Normal Saline Flush 10 ML SYR IVP (08:45)
[2020-02-19] MEDS: Heparin 500 UNITS/5 ML SYRINGE IV (08:46)
[2020-02-19 08:55] LABS: ALT 29 U/L (14-59); AST 35 U/L (15-37); Albumin 3.8 g/dL (3.4-5.0); Alkaline Phosphatase 170 U/L (46-116); Anion Gap 8.4 mmol/L (3-11); BUN 40 mg/dL (7-18); Bilirubin, Total 0.5 mg/dL (0.2-1.0); CO2 31.6 mmol/L (21.0-32.0); CREATININE 1.71 mg/dL (0.55-1.02); Calcium 9.9 mg/dL (8.5-10.1); Chloride 90 mmol/L (98-107); Estimated GFR 30.56 (mL/min/1.73m2); Glucose 128 mg/dL (74-106); Potassium 3.6 mmol/L (3.5-5.1); Sodium 130 mmol/L (136-145); Total Protein 8.4 g/dL (6.4-8.2)
[2020-02-20] MEDS: Normal Saline 1,000 ML 600 ML IV (13:17)
[2020-02-20] MEDS: Normal Saline Flush 10 ML SYR IVP ×2 (13:17→15:12)
[2020-02-20] MEDS: Heparin 500 UNITS/5 ML SYRINGE IV (15:13)
[2020-02-22 10:33] LABS: CEA 47.4 ng/mL (See Note)
== END 2020-02-23 23:59 | disposition home or self-care (01) ==
LOC: INF 04:08
PROVIDERS: PCP Family Medicine; Visit Provider Internal Medicine Hematology & Oncology
DX: C20 Malignant neoplasm of rectum (principal); Z45.2 Encounter for adjustment and management of vascular access device
CPT/HCPCS: 36591; 80053; 96360; 96361; 96365; 96523; 82378; 85025

== ENCOUNTER 2020-03-25 03:59 | Outpatient (RCR) | payer OTHER, SELFPAY ==
[2020-02-25] MEDS: Alteplase 2 MG VIAL (09:45)
[2020-02-25] MEDS: Water,Injection,Sterile 10 ML VIAL (09:46)
[2020-02-25] MEDS: Normal Saline Flush 10 ML SYR IVP (10:30)
[2020-02-25] MEDS: Heparin 500 UNITS/5 ML SYRINGE IV (10:30)
[2020-02-25] MEDS: Normal Saline 1,000 ML 999 ML IV (10:30)
[2020-02-29] MEDS: Normal Saline Flush 10 ML SYR IVP (09:09)
[2020-02-29] MEDS: Normal Saline 1,000 ML 999 ML IV (09:09)
[2020-02-29] MEDS: Heparin 500 UNITS/5 ML SYRINGE IV (09:09)
[2020-03-03] MEDS: Normal Saline Flush 10 ML SYR IVP (09:09)
[2020-03-03] MEDS: Heparin 500 UNITS/5 ML SYRINGE IV (09:09)
[2020-03-03] MEDS: Normal Saline 1,000 ML 999 ML IV (09:09)
[2020-03-08] MEDS: Normal Saline Flush 10 ML SYR IVP (08:57)
[2020-03-08] MEDS: Normal Saline 1,000 ML 999 ML IV (08:58)
[2020-03-08] MEDS: Heparin 500 UNITS/5 ML SYRINGE IV (10:00)
[2020-03-11] MEDS: Normal Saline Flush 10 ML SYR IVP (08:50)
[2020-03-11] MEDS: Normal Saline 1,000 ML 999 ML IV (09:00)
[2020-03-11] MEDS: Heparin 500 UNITS/5 ML SYRINGE IV (09:06)
[2020-03-11 09:13] LABS: Abs Immature Grans 0.01 k/cumm (0.0-0.09); Absolute Basophil Count 0.02 k/cumm (0.0-0.2); Absolute Eosinophil Count 0.07 k/cumm (0.0-0.7); Absolute Lymphocyte Count 0.94 k/cumm (1.2-3.4); Absolute Neutrophil Count 4.47 k/cumm (1.2-6.7); Basophils % 0.3; Eosinophils % 1.1; HCT 33.2 % (36.0-46.0); HGB 10.6 g/dL (12.0-15.5); Immature Grans % 0.2 %; Lymphocytes % 15.4; Mean Corp. HGB Concentration 31.9 g/dL (32.0-36.0); Mean Corpuscular Hemoglobin 27.3 pg (27.0-33.0); Mean Corpuscular Volume 85.6 fL (80-95); Mean Platelet Volume 9.8 fL (8.0-11.0); Monocytes % 9.8; Neutrophils % 73.2; Platelet Count 400 x1000/uL (130-400); RBC 3.88 m/cumm (4.00-5.20); RBC Distribution Width 15.3 % (11.7-14.6); White Blood Cell Count 6.11 k/cumm (4.4-10.8)
[2020-03-11 09:29] LABS: ALT 48 U/L (14-59); AST 43 U/L (15-37); Albumin 3.7 g/dL (3.4-5.0); Alkaline Phosphatase 208 U/L (46-116); BUN 15 mg/dL (7-18); Bilirubin, Total 0.5 mg/dL (0.2-1.0); CREATININE 1.55 mg/dL (0.55-1.02); Calcium 9.3 mg/dL (8.5-10.1); Chloride 97 mmol/L (98-107); Estimated GFR 34.22 (mL/min/1.73m2); Glucose 116 mg/dL (74-106); Sodium 135 mmol/L (136-145); Total Protein 7.9 g/dL (6.4-8.2)
[2020-03-14 10:44] LABS: CEA 57.6 ng/mL (See Note)
[2020-03-15] MEDS: Normal Saline 1,000 ML 999 ML IV (09:50)
[2020-03-15] MEDS: Normal Saline Flush 10 ML SYR IVP (09:50)
[2020-03-15] MEDS: Heparin 500 UNITS/5 ML SYRINGE IV (09:57)
[2020-03-18] MEDS: Normal Saline Flush 10 ML SYR IVP (09:00)
[2020-03-18] MEDS: Normal Saline 1,000 ML 999 ML IV (09:00)
[2020-03-18] MEDS: Heparin 500 UNITS/5 ML SYRINGE IV (09:23)
[2020-03-22] MEDS: Normal Saline 1,000 ML 999 ML IV (08:55)
[2020-03-22] MEDS: Normal Saline Flush 10 ML SYR IVP (09:02)
[2020-03-22] MEDS: Heparin 500 UNITS/5 ML SYRINGE IV (09:03)
[2020-03-25] MEDS: Normal Saline 1,000 ML 999 ML IV (09:05)
[2020-03-25] MEDS: Normal Saline Flush 10 ML SYR IVP (09:14)
[2020-03-25] MEDS: Heparin 500 UNITS/5 ML SYRINGE IV (09:15)
== END 2020-03-25 23:59 | disposition home or self-care (01) ==
LOC: INF 03:59
PROVIDERS: PCP Family Medicine; Visit Provider Internal Medicine Hematology & Oncology
DX: C20 Malignant neoplasm of rectum (principal); Z45.2 Encounter for adjustment and management of vascular access device; E86.0 Dehydration
CPT/HCPCS: 36591; 80053; 96360; 96361; 96365; 96374; 96523; 82378; 85025; J2997

== ENCOUNTER 2020-04-22 04:27 | Outpatient (RCR) | payer OTHER, SELFPAY ==
[2020-03-29] MEDS: Normal Saline Flush 10 ML SYR IVP (09:05)
[2020-03-29] MEDS: Normal Saline 1,000 ML 1000 ML IV (09:05)
[2020-03-29] MEDS: Heparin 500 UNITS/5 ML SYRINGE IV (09:06)
[2020-04-01] MEDS: Normal Saline 1,000 ML 1000 ML IV (09:05)
[2020-04-01] MEDS: Normal Saline Flush 10 ML SYR IVP (09:09)
[2020-04-01] MEDS: Heparin 500 UNITS/5 ML SYRINGE IV (09:10)
[2020-04-05] MEDS: Normal Saline 1,000 ML 999 ML IV (09:05)
[2020-04-05] MEDS: Heparin 500 UNITS/5 ML SYRINGE IV (09:06)
[2020-04-05] MEDS: Normal Saline Flush 10 ML SYR IVP (09:06)
[2020-04-08 10:31] LABS: Abs Immature Grans 0.03 10^3/uL (0.0-0.06); Absolute Basophil Count 0.01 10^3/uL (0.0-0.2); Absolute Eosinophil Count 0.04 10^3/uL (0.0-0.7); Absolute Lymphocyte Count 0.65 10^3/uL (1.2-3.4); Absolute Monocyte Count 0.53 10^3/uL (0.1-0.8); Absolute Neutrophil Count 6.19 10^3/uL (1.2-6.7); Basophils % 0.1; Eosinophils % 0.5; HCT 27.7 % (36.0-46.0); HGB 8.9 g/dL (11.2-15.7); Immature Grans % 0.4; Lymphocytes % 8.7; MCH 27.6 pg (27.0-33.0); MCHC 32.1 % (32.0-36.0); MPV 10.2 fL (8.0-11.0); Monocytes % 7.1; Neutrophils % 83.2; Nucleated RBC 0 %; Platelet Count 386 10^3/uL (130-400); RBC 3.22 10^6/uL (3.93-5.22); RDW 14.1 % (11.7-14.6); RDW-SD 44.3 fL; WBC 7.45 10^3/uL (4.4-10.8)
[2020-04-08 10:49] LABS: ALT 30 U/L (14-59); AST 29 U/L (15-37); Albumin 3.4 g/dL (3.4-5.0); Alkaline Phosphatase 220 U/L (46-116); BUN 11 mg/dL (7-18); Bilirubin, Total 0.3 mg/dL (0.2-1.0); Calcium 9.3 mg/dL (8.5-10.1); Chloride 102 mmol/L (98-107); Estimated GFR 50.84 (mL/min/1.73m2); Glucose 141 mg/dL (74-106); Potassium 3.3 mmol/L (3.5-5.1); Sodium 139 mmol/L (136-145); Total Protein 7.5 g/dL (6.4-8.2)
[2020-04-08 10:51] LABS: Diff Comment RBC Morph Reviewed; RBC Morphology Normal
[2020-04-08] MEDS: Heparin 500 UNITS/5 ML SYRINGE IV (10:57)
[2020-04-08] MEDS: Normal Saline Flush 10 ML SYR IVP (10:57)
[2020-04-11 09:21] LABS: CEA 79.2 ng/mL (See Note)
[2020-04-12] MEDS: Normal Saline Flush 10 ML SYR IVP (08:59)
[2020-04-12] MEDS: Normal Saline 1,000 ML 999 ML IV (09:00)
[2020-04-12] MEDS: Heparin 500 UNITS/5 ML SYRINGE IV (09:00)
[2020-04-15] MEDS: Normal Saline Flush 10 ML SYR IVP (09:10)
[2020-04-15] MEDS: Normal Saline 1,000 ML 999 ML IV (09:10)
[2020-04-15] MEDS: Ondansetron 4 MG/2 ML VIAL 8 MG IV (09:43)
[2020-04-15] MEDS: Heparin 500 UNITS/5 ML SYRINGE IV (10:20)
[2020-04-19] MEDS: Normal Saline 1,000 ML 999 ML IV (09:25)
[2020-04-19] MEDS: Normal Saline Flush 10 ML SYR IVP (09:25)
[2020-04-19] MEDS: Heparin 500 UNITS/5 ML SYRINGE IV (09:25)
[2020-04-22] MEDS: Normal Saline 1,000 ML 999 ML IV (10:01)
[2020-04-22] MEDS: Normal Saline Flush 10 ML SYR IVP (10:02)
[2020-04-22] MEDS: Heparin 500 UNITS/5 ML SYRINGE IV (10:02)
[2020-04-22 10:15] LABS: Abs Immature Grans 0.01 10^3/uL (0.0-0.06); Absolute Basophil Count 0.02 10^3/uL (0.0-0.2); Absolute Eosinophil Count 0.08 10^3/uL (0.0-0.7); Absolute Lymphocyte Count 0.77 10^3/uL (1.2-3.4); Absolute Monocyte Count 0.68 10^3/uL (0.1-0.8); Absolute Neutrophil Count 4.54 10^3/uL (1.2-6.7); Basophils % 0.3; Eosinophils % 1.3; HCT 26.7 % (36.0-46.0); HGB 8.6 g/dL (11.2-15.7); Immature Grans % 0.2; Lymphocytes % 12.6; MCH 27.3 pg (27.0-33.0); MCHC 32.2 % (32.0-36.0); MCV 84.8 fL (80-95); MPV 9.9 fL (8.0-11.0); Monocytes % 11.1; Neutrophils % 74.5; Nucleated RBC 0 %; Platelet Count 312 10^3/uL (130-400); RBC 3.15 10^6/uL (3.93-5.22); RDW 13.9 % (11.7-14.6); RDW-SD 42.9 fL
[2020-04-22 10:34] LABS: Diff Comment RBC Morph Reviewed; Hypochromasia 1+
[2020-04-22 10:57] LABS: ALT 24 U/L (14-59); AST 39 U/L (15-37); Albumin 3.2 g/dL (3.4-5.0); Alkaline Phosphatase 157 U/L (46-116); Anion Gap 9.9 mmol/L (3-11); BUN 10 mg/dL (7-18); Bilirubin, Total 0.3 mg/dL (0.2-1.0); CO2 27.1 mmol/L (21.0-32.0); Calcium 9.2 mg/dL (8.5-10.1); Chloride 101 mmol/L (98-107); Estimated GFR 41.92 (mL/min/1.73m2); Glucose 100 mg/dL (74-106); Potassium 3.9 mmol/L (3.5-5.1); Sodium 138 mmol/L (136-145); Total Protein 7.1 g/dL (6.4-8.2)
[2020-04-25 09:48] LABS: CEA 129.5 ng/mL (See Note)
== END 2020-04-25 23:59 | disposition home or self-care (01) ==
LOC: INF 04:27
PROVIDERS: PCP Family Medicine; Visit Provider Internal Medicine Hematology & Oncology
DX: C20 Malignant neoplasm of rectum (principal); R11.0 Nausea; Z45.2 Encounter for adjustment and management of vascular access device
CPT/HCPCS: 36591; 80053; 96360; 96365; 96523; 82378; 85025; J2405

== ENCOUNTER 2020-05-03 03:47 | Outpatient (RCR) | payer OTHER, SELFPAY ==
[2020-04-26] MEDS: Normal Saline 1,000 ML 999 ML IV (09:25)
[2020-04-26] MEDS: Normal Saline Flush 10 ML SYR IVP (09:25)
[2020-04-26] MEDS: Heparin 500 UNITS/5 ML SYRINGE IV (09:39)
[2020-04-29] MEDS: Normal Saline 1,000 ML 999 ML IV (09:31)
[2020-04-29] MEDS: Normal Saline Flush 10 ML SYR IVP (09:32)
[2020-04-29] MEDS: Heparin 500 UNITS/5 ML SYRINGE IV (09:32)
== END 2020-05-25 23:59 | disposition home or self-care (01) ==
LOC: INF 03:47
PROVIDERS: PCP Family Medicine; Visit Provider Internal Medicine Hematology & Oncology
DX: C20 Malignant neoplasm of rectum (principal); Z45.2 Encounter for adjustment and management of vascular access device
CPT/HCPCS: 96360; 96365

== ENCOUNTER 2020-05-12 21:51 | Emergency (ER) | payer OTHER, SELFPAY ==
[2020-05-12 21:56] VITALS: BP 124/62; PULSE 80; RESP 18; TEMP 36.8; O2SAT 98
--- NOTE | 2020-05-12 21:57 | ED.GENADUL_ITS ---
Discharge Plan Disposition Patient Disposition: HOME Condition: Stable Discharge Details Clinical Impression: Encounter for care related to vascular access port Primary Care Provider: David Isabel ED Provider: Daniel Osuna Meds and New Rx's Prescriptions: No Action fentanyl 25 mcg/hr patch 72 hour 1 patch TD Q72H MDD 225 mcg Qty: 5 RF: 0 lorazepam 0.5 mg tablet 0.5 mg PO TID PRN (Reason: anxiety) Qty: 60 RF: 0 fentanyl 75 mcg/hr patch 72 hour 1 patch TD Q72H MDD 300 mcg Qty: 1 RF: 0 (DME) ostomy supplies Misc See Rx Instructions .ROUTE .MEDSUPPLY Qty: 1 RF: 0 prochlorperazine maleate [Compazine] 10 mg tablet 10 mg PO QID PRNRF: 0 hydromorphone 4 mg tablet 4 - 12 mg PO Q3H PRN MDD hospice PRN (Reason: pain) Qty: 90 RF: 0 loperamide 2 mg capsule 2 mg PO Q1-4H PRN (Reason: loose stool) Qty: 720 RF: 1 ondansetron 4 mg tablet,disintegrating 4 mg PO Q6H PRN (Reason: nausea and vomiting) Qty: 30 RF: 0 ondansetron HCl [Zofran] 8 mg tablet 8 mg PO Q8H PRN (Reason: nausea and vomiting) Qty: 30 RF: 1 fentanyl 100 mcg/hr patch 72 hour 4 patch TD Q72H MDD 225 mcg Qty: 6 RF: 0 Metamucil 3.4 gram/5.4 gram Powder 0.5 tbsp PO TID RF: 0 vit D3-folic [id number] 2,000-800-0.32 unit-mcg-mg Tablet 1 tab PO DAILY RF: 0 aspirin 81 mg Tablet,Delayed Release (Dr/Ec) 81 mg PO DAILY Qty: 0 RF: 0 Discharge Instructions Additional Instructions: Resume previous medications/hospice care. Medical Decision Making Will re-access port here and be sure that it draws and flushes. Hospice will need to set Dilaudid pump backup and begin infusion. Medical Records Medical records reviewed: Yes I reviewed the patient's medical records. HPI General Mode of arrival: ambulatory . Date/Time Provider Initiated Documentation: 05/12/20 21:57 . Limitations to Documentation: no limitations . Information obtained by: patient, RN notes reviewed and old records reviewed . HPI Narrative: Patient is a hospice patient who gets a continuous infusion of Dilaudid through her port. Hospice nurse checked on her tonight. There was bleeding around the port site so they deaccessed the port and sent the patient here. Patient withou t other complaint except for her pain which is being managed as above. Related Data Home Medications Medication Instructions Recorded Confirmed vit D3-folic [id number] 1 tab PO DAILY 06/01/19 04/01/20 Metamucil 0.5 tbsp PO TID 10/05/19 04/01/20 ostomy supplies #1 each 11/02/19 04/01/20 prochlorperazine maleate 10 mg 10 mg PO QID PRN 11/02/19 04/01/20 tablet aspirin 81 mg PO DAILY #0 tab 01/22/20 04/01/20 loperamide 2 mg capsule 2 mg PO Q1-4H PRN #720 cap 02/25/20 04/01/20 ondansetron 4 mg disintegrating 4 mg PO Q6H PRN #30 tab 04/08/20 tablet fentanyl 25 mcg/hr transdermal 1 patch TD Q72H #5 each MDD 225 mcg 04/26/20 04/26/20 patch fentanyl 75 mcg/hr transdermal 1 patch TD Q72H #1 each MDD 300 mcg 04/29/20 04/29/20 patch lorazepam 0.5 mg tablet 0.5 mg PO TID PRN #60 tab 04/29/20 04/29/20 hydromorphone 4 mg tablet 4 - 12 mg PO Q3H PRN PRN #90 tab 05/03/20 05/03/20 MDD hospice ondansetron HCl 8 mg tablet 8 mg PO Q8H PRN #30 tab 05/06/20 fentanyl 100 mcg/hr transdermal 4 patch TD Q72H #6 ea MDD 225 mcg 05/11/20 patch Previous Rx's Medication Instructions Recorded aspirin 81 mg PO DAILY #0 tab 01/22/20 loperamide 2 mg capsule 2 mg PO Q1-4H PRN #720 cap 02/25/20 ondansetron 4 mg disintegrating 4 mg PO Q6H PRN #30 tab 04/08/20 tablet fentanyl 25 mcg/hr transdermal 1 patch TD Q72H #5 each MDD 225 mcg 04/26/20 patch fentanyl 75 mcg/hr transdermal 1 patch TD Q72H #1 each MDD 300 mcg 04/29/20 patch lorazepam 0.5 mg tablet 0.5 mg PO TID PRN #60 tab 04/29/20 hydromorphone 4 mg tablet 4 - 12 mg PO Q3H PRN PRN #90 tab 05/03/20 MDD hospice ondansetron HCl 8 mg tablet 8 mg PO Q8H PRN #30 tab 05/06/20 fentanyl 100 mcg/hr transdermal 4 patch TD Q72H #6 ea MDD 225 mcg 05/11/20 patch Allergies Allergy/AdvReac Type Severity Reaction Status Date / Time morphine AdvReac Intermediate BAD DREAMS Verified 04/29/20 14:40 General GIULIANA: 3 Review of Systems Constitutional Constitutional: Denies fever(s) Cardiovascular Cardiovascular: Denies dyspnea Respiratory Respiratory: Denies cough and Denies dyspnea PFSH Medical History (Updated 05/12/20 @ 22:25 by Daniel Osuna MD) Chronic gastritis (11/01/17) DNI (do not intubate) DNR (do not resuscitate) Essential (primary) hypertension FAP (familial adenomatous polyposis) History of Helicobacter pylori infection POLST (Physician Orders for Life-Sustaining Treatment) Premature menopause (07/25/93) secondary to radiation; HRT Primary malignant neoplasm of colon (07/25/93) hematochezia; colonoscopy-familial polyposis w/ genetic mutation; Adeno Ca; colon resection and reanastomosis; radiation and chemo. Rectal adenocarcinoma (04/25/18) Dr Ceballos Tubular adenoma 11/23/15-DR. DALE 12/12/16-DR. DALE 11/01/16, tubular adenoma of rectal stump and anal verge, Dr Ted Ceballos tubular adenoma of rectal stump tubular adenoma anal verge Surgical History Abnormal colonoscopy (04/25/18) Dr Ceballos, flex sigmoidoscopy Anoscopy (07/09/17) Colectomy (~1993) LARGE BOWEL reanastomosis colonoscopy (12/12/16) Colonoscopy - MAC (11/01/17) EGD - MAC (11/01/17) EGD - MAC (04/25/18) EXCISION SEBACEOUS CYST (04/11/15) LEFT POSTAURICULAR REGION H/O resection of rectum (~07/31/19) Proctectomy w/ abdominoperineal pullthrough and myocutaneous flap History of esophagogastroduodenoscopy (EGD) (04/25/18) Dr Ceballos Sigmoidoscopy (06/01/19) 04/25/18- malignant polyp surveillance of rectal stump (12/12/16) Family History Mother Essential hypertension Father , 84 Heart disease CABG AGE 82 Prostate cancer Son FAP (familial adenomatous polyposis) Daughter Thyroid cancer Sister No problems noted. Brother No problems noted. Sister No problems noted. Sister No problems noted. Brother No problems noted. Social History Smoking/Tobacco Use Status: Never Alcohol Intake: former Drug use: Daily Substance use type: does not use Household members: spouse Housing: house Communication Needs: None Do you need help understanding health information?: Rarely Pets and animals: Yes Pets and animals: cat(s) Do you think of yourself as: straight/heterosexual Current gender identity: female What is your relationship status?: How often do you talk on the phone with friends or family?: decline to answer How often do you get together with friends or relatives?: twice per week How often do you attend scientologist or oriental orthodox services?: 1-3 times per year Do you belong to any clubs or organized social groups?: decline to answer Panel score (0-1 are the most socially isolated patients): 1 What type of physical activity do you participate in: walking Duration: 15-30 minutes/day Frequency: 5-6 times per week Destini/Restoration: Hindu Special destini needs: No Seatbelt use: always Helmet use: No Drive intox or ride w/intox driver trainer: No Do you feel safe at home: Yes Do you feel safe in your relationship?: Yes History History 2 Para 2 Hx # Term Pregnancies Multiple births Hx # Pregnancies Ectopic pregnancies AB induced Hx Number of Living Children AB spontaneous Exam Const General: cooperative and no acute distress Orientation: oriented x3 Neck Neck: trachea midline and supple Chest Chest: normal palpation of entire chest wall, abnormal inspection of the chest ( old bruising around port site but no bleeding. No tenderness/erythema. ) and no tenderness Resp Effort & Inspection: normal respiratory effort Neuro General: patient oriented x3 and no focal motor deficits
[2020-05-12] MEDS: Lidocaine/Epinephri/Tetracaine Topical Gel 3 ML (22:10)
[2020-05-12] MEDS: Normal Saline-STERILE FIELD 0.9% 10 ML SYR (22:30)
--- NOTE | 2020-05-12 22:39 | NUR.NOTE ---
Nursing Note: Using sterile technique left clavicular mediport was accessed with a 19G .75 valle needle with + blood return. Port was flushed with 30 cc NS to ensure propper flow and placement. VNA nurse at bedside to reattach pts home CADD pump.
== END 2020-05-12 22:42 | disposition home or self-care (01) ==
PROVIDERS: Emergency Provider Emergency Medicine; PCP Family Medicine
DX: G89.3 Neoplasm related pain (acute) (chronic) (principal); T82.598A Other mechanical complication of other cardiac and vascular devices and implants, initial encounter; Z45.2 Encounter for adjustment and management of vascular access device; Z95.828 Presence of other vascular implants and grafts; C18.9 Malignant neoplasm of colon, unspecified; I10 Essential (primary) hypertension
CPT/HCPCS: 99284; 99282